=== PATIENT | male | born 1960 | race African-American/Black ===

== ENCOUNTER 2016-06-05 06:38 | Inpatient (IN) | payer OTHER ==
[~2016-06-05] VITALS: Ht 188 cm; Wt 116.2 kg
[2016-06-05] VITALS (13 sets, daily range): BP systolic 90–158; BP diastolic 64–106; PULSE 87–132; RESP 9–32; TEMP 98.1–98.7; O2SAT 89–99
[~2016-06-05 06:38] MED LIST: CYCL5TAB PO; DICL-86 PO; IBUP-238 PO
[2016-06-05] MEDS ORDERED: AMIODARONE HCL 150 MG/3 ML VIAL ONE (06:40)
[2016-06-05] MEDS ORDERED: TURM500C PO (06:45)
[2016-06-05] MEDS ORDERED: VERA120T3 PO (06:45)
[2016-06-05] MEDS ORDERED: VITA100064 PO (06:45)
--- NOTE | 2016-06-05 07:00 | PD ---
HPI . Shortness of breath Chief Complaint: Chest Pain Time Seen by Provider: 06:56 Travel History International Travel<30 days: No Contact w/Intl Traveler<30days: No Traveled to known affect area: No History of Present Illness HPI Patient is brought in via [facility] with the chief complaint of the acute onset of shortness of breath and chest pain minutes prior to arrival. He states that it awakened him from sleep. He states that the shortness of breath is the worst of the symptoms. He describes the chest discomfort as a tightness. He also has some diaphoresis. He denies any previous similar history. [facility] Past Medical History Diminished Hearing: No Hypertension: Yes Immune Disorder: Yes (HIV) Past Surgical History Other Surgery: Yes Social History Alcohol Use: Yes (X2 PER WEEK/2 DRINKS/LAST INTAKE YESTERDAY) Tobacco Use: Yes (1/2 PPD STARTED AGE 38) Substance Use: No Allergies-Medications (Allergen,Severity, Reaction): Coded Allergies: No Known Allergies (Verified , 06/05/16) Reported Meds & Prescriptions Reported Meds & Active Scripts Active Reported Turmeric (Turmeric (Curcuma Longa)) 500 Mg Cap Unknown Dose PO DAILY Vitamin D (Cholecalciferol) 1,000 Unit Tab 1,000 Units PO DAILY Verapamil (Verapamil HCl) 120 Mg Tab 180 Mg PO DAILY Review of Systems Except as stated in HPI: all other systems reviewed are Neg General / Constitutional: Positive: Other (diaphoresis) Cardiovascular: Positive: Chest Pain or Discomfort Respiratory: Positive: Shortness of Breath Physical Exam Narrative GENERAL: Patient is in obvious respiratory distress. He is able to speak 2 or 3 syllable between breaths. SKIN: He is clammy. HEAD: Atraumatic. Normocephalic. EYES: Pupils equal and round. ENT: No nasal bleeding or discharge. Mucous membranes pink and moist. NECK: Trachea midline. Neck is supple. CARDIOVASCULAR: Regular rate and rhythm. He is tachycardic at about 130 to 140. RESPIRATORY: No accessory muscle use. His lungs sound clear with good air movement throughout. Sats on oxygen are 90%. GASTROINTESTINAL: Abdomen soft, non-tender, nondistended. MUSCULOSKELETAL: No obvious deformities. Trace pretibial edema. NEUROLOGICAL: Awake and alert. No obvious cranial nerve deficits. Motor grossly within normal limits. Normal speech. PSYCHIATRIC: Appropriate mood and affect; insight and judgment normal. Data Data Last Documented VS Vital Signs Date Time Temp Pulse Resp B/P Pulse Ox O2 Delivery O2 Flow Rate FiO2 06/05/16 06:46 98.7 132 29 121/78 89 06/05/16 06:40 Nasal Cannula 4 Orders Amiodarone Inj (Cordarone Inj) (06/05/16 06:40) Electrocardiogram (06/05/16 06:42) Basic Metabolic Panel (Bmp) (06/05/16 06:42) Ckmb (Isoenzyme) Profile (06/05/16 06:42) Complete Blood Count With Diff (06/05/16 06:42) D-Dimer (06/05/16 06:42) Magnesium (Mg) (06/05/16 06:42) Prothrombin Time / Inr (Pt) (06/05/16 06:42) Act Partial Throm Time (Ptt) (06/05/16 06:42) Troponin I (06/05/16 06:42) Chest, Single Ap (06/05/16 06:42) Ecg Monitoring (06/05/16 06:42) Bilateral Bp Monitoring (06/05/16 06:42) Iv Access Insert/Monitor (06/05/16 06:42) Oximetry (06/05/16 06:42) Oxygen Administration (06/05/16 06:42) I-Stat Profile (06/05/16 06:42) Exceptions Acute Myocardial Infarction ASA Not Given on Arrival: Already Given by EMS MDM Medical Decision Making Medical Screen Exam Complete: Yes Emergency Medical Condition: Yes Interpretation(s) EKG shows atrial flutter with a rate of about 1:30. He has some diffuse lateral and inferior ST segment depression. He has no old EKGs here for comparison. Differential Diagnosis Differential diagnosis of dyspnea includes but is not limited to congestive heart failure, pneumonia, wheezing, pneumothorax, pulmonary embolism Narrative Course Patient presents via [facility] for shortness of breath and chest pain. He was found to be hypotensive by [facility] therefore he was not given any nitroglycerin. He was given baby aspirin. He was also treated with oxygen and IV fluids. Patient reports that he is much better on arrival here. However, he still appears markedly short of breath. His blood pressure was transiently improved but has dropped back down to about 90 systolic. He was given amiodarone, 150 mg IV in an attempt to gain rate control. However , he continues to have a rapid ventricular response. This patient presented shortly prior to change of shift. His care turned over to the oncoming provider. Bedside handout was done. Critical Care Narrative Aggregate critical care time was 30 minutes. Time to perform other separately billable procedures was not included in the critical care time. My time did not include minutes spent treating any other patients simultaneously or on activities that did not directly contribute to the patient's treatment. The services I provided to this patient were to treat and/or prevent clinically significant deterioration that could result in: Fatal dysrhythmia, cardiovascular collapse, respiratory arrest, cardiac disability. I provided critical care services requiring my management, as noted below: Chart data review, documentation time, medication orders and management, vital sign assessments/reviewing monitor data, ordering and reviewing lab tests, ordering and interpreting/reviewing x-rays and diagnostic studies, care of the patient and discussion of the patient with the admitting physicians. Diagnosis Primary Impression: Dyspnea Qualified Code: R06.00 - Dyspnea, unspecified type Additional Impression: Chest pain Qualified Code: R07.9 - Chest pain, unspecified type Nadia Oneill MD Jun 05, 2016 07:00
[2016-06-05 07:01] LABS: I-STAT POTASSIUM 3.3 MMOL/L (3.5-4.9); I-STAT SODIUM 142 MMOL/L (138-146)
[2016-06-05] MEDS ORDERED: SODIUM CHLOR 0.9% 1000 ML INJ 1,000 ML IV ONE (07:15)
[2016-06-05 07:16] LABS: AUTOMATED NEUTROPHIL # 2.7 TH/MM3 (1.8-7.7); BASOPHIL % 0.5 % (0.0-2.0); EOSINOPHIL # 0.2 TH/MM3 (0-0.4); EOSINOPHIL % 2.1 % (0.0-4.0); HEMO FLAGS DIFF FINAL; LYMPHOCYTE # 4.2 TH/MM3 (1.0-4.8); MEAN CELL VOLUME 103.7 FL (80.0-100.0); MEAN CORPUSCULAR HEMOGLOBIN 35.5 PG (27.0-34.0); MEAN CORPUSCULAR HGB CONC 34.3 % (32.0-36.0); MONO % 8.3 % (0.0-8.0); NEUT % 35.1 % (16.0-70.0); PLATELET COUNT 155 TH/MM3 (150-450); RED BLOOD COUNT 4.63 MIL/MM3 (4.50-5.90); WHITE BLOOD COUNT 7.8 TH/MM3 (4.0-11.0)
[2016-06-05 07:18] LABS: CREATINE KINASE 168 U/L (39-308)
[2016-06-05 07:20] LABS: ANION GAP 11 MEQ/L (5-15); BICARBONATE 23.3 MEQ/L (21.0-32.0); BLOOD UREA NITROGEN 19 MG/DL (7-18); CHLORIDE 109 MEQ/L (98-107); GLOMERULAR FILTRATION RATE 46 ML/MIN (>89); MAGNESIUM 1.9 MG/DL (1.5-2.5); POTASSIUM 3.3 MEQ/L (3.5-5.1); SODIUM (NA) 143 MEQ/L (136-145)
[2016-06-05 07:39] LABS: APTT (PATIENT) 22.8 SEC (24.3-30.1); INTERNATIONAL NORMALIZED RATIO 1.1 RATIO; PROTHROMBIN TIME - PATIENT 11.7 SEC (9.8-11.6)
--- NOTE | 2016-06-05 07:44 | RADRPT ---
EXAM DATE/TIME: 06/05/2016 07:23 [facility] COMPARISON: No previous studies available for comparison. INDICATIONS : Chest pain. MEDICAL HISTORY : None. SURGICAL HISTORY : None. ENCOUNTER: Initial ACUITY: 1 day PAIN SCORE: 5/10 LOCATION: Left upper chest FINDINGS: A single view of the chest demonstrates the lungs to be symmetrically aerated without evidence of mas s, infiltrate or effusion. The cardiomediastinal contours are unremarkable. Osseous structures are intact. CONCLUSION: No acute disease. Aniket Eric MD on June 05, 2016 at 7:42 Board Certified Radiologist. This report was verified electronically.
--- NOTE | 2016-06-05 07:56 | PD ---
Physical Exam Narrative Received sign out from previous team. Please see previous provider's note for full history and physical. 56yo M with PMH of HIV on HAART CD4 900 presents to the ED with c/o chest pain, sob, diaphoresis since waking up this morning. Chest pain is left sided, nonradiating. Pt was found to be in aflutter in the 130s and given amiodarone 150mg IV by previous team. To me, there appears to be buried p waves in the EKG and looks like sinus tach. Pt given liter of NS IVF and HR is 110s at this time. Pt is hypoxic at 93% on 6L NC. Labs reviewed, no leukocytosis, hypokalemia at 3.3, replaced orally with 40mEq KCl. Troponin is 0.04. D-dimer is elevated at 6.34. CXR showed no acute disease. Pt feels better with oxygen but requires 6L NC to be in low 90s saturation so CT pulmonary ordered and showed extensive bilateral pulmonary embolism. Pt's blood pressure has improved and hemodynamically stable at this time. Pt given lovenox. Discussed with Dr. Lin and accepted to medicine. Also discussed case with medicare sales representative Dr. Henao. Data Data Last Documented VS Vital Signs Date Time Temp Pulse Resp B/P Pulse Ox O2 Delivery O2 Flow Rate FiO2 06/05/16 08:15 114 18 128/93 95 Nasal Cannula 3 06/05/16 06:46 98.7 Orders Amiodarone Inj (Cordarone Inj) (06/05/16 06:40) Electrocardiogram (06/05/16 06:42) Basic Metabolic Panel (Bmp) (06/05/16 06:42) Ckmb (Isoenzyme) Profile (06/05/16 06:42) Complete Blood Count With Diff (06/05/16 06:42) D-Dimer (06/05/16 06:42) Magnesium (Mg) (06/05/16 06:42) Prothrombin Time / Inr (Pt) (06/05/16 06:42) Act Partial Throm Time (Ptt) (06/05/16 06:42) Troponin I (06/05/16 06:42) Chest, Single Ap (06/05/16 06:42) Ecg Monitoring (06/05/16 06:42) Bilateral Bp Monitoring (06/05/16 06:42) Iv Access Insert/Monitor (06/05/16 06:42) Oximetry (06/05/16 06:42) Oxygen Administration (06/05/16 06:42) I-Stat Profile (06/05/16 06:42) B-Type Natriuretic Peptide (06/05/16 07:09) Sodium Chlor 0.9% 1000 Ml Inj (Ns 1000 M (06/05/16 07:15) CKMB (06/05/16 06:42) CKMB% (06/05/16 06:42) Ct Pulmonary Angiogram (06/05/16 ) Potassium Chloride (Kcl) (06/05/16 08:00) Arterial Blood Gas (Abg) (06/05/16 ) Iodixanol 320 Inj (Visipaque 320 Inj) (06/05/16 09:02) Enoxaparin Inj (Lovenox Inj) (06/05/16 09:45) Admit Order (Ed Use Only) (06/05/16 09:46) Labs Laboratory Tests Test 06/05/16 06/05/16 06:42 09:09 White Blood Count 7.8 TH/MM3 Red Blood Count 4.63 MIL/MM3 Hemoglobin 16.4 GM/DL Bedside Hemoglobin 16.3 G/DL Hematocrit 48.0 % Bedside Hematocrit 48.0 % Mean Corpuscular Volume 103.7 FL Mean Corpuscular Hemoglobin 35.5 PG Mean Corpuscular Hemoglobin 34.3 % Concent Red Cell Distribution Width 15.0 % Platelet Count 155 TH/MM3 Mean Platelet Volume 8.5 FL Neutrophils (%) (Auto) 35.1 % Lymphocytes (%) (Auto) 54.0 % Monocytes (%) (Auto) 8.3 % Eosinophils (%) (Auto) 2.1 % Basophils (%) (Auto) 0.5 % Neutrophils # (Auto) 2.7 TH/MM3 Lymphocytes # (Auto) 4.2 TH/MM3 Monocytes # (Auto) 0.6 TH/MM3 Eosinophils # (Auto) 0.2 TH/MM3 Basophils # (Auto) 0.0 TH/MM3 CBC Comment DIFF FINAL Differential Comment Prothrombin Time 11.7 SEC Prothromb Time International 1.1 RATIO Ratio Activated Partial 22.8 SEC Thromboplast Time D-Dimer Quantitative (PE/DVT) 6.34 MG/L FEU Bedside Sodium 142 MMOL/L Sodium Level 143 MEQ/L Bedside Potassium 3.3 MMOL/L Potassium Level 3.3 MEQ/L Bedside Chloride 106 MMOL/L Chloride Level 109 MEQ/L Carbon Dioxide Level 23.3 MEQ/L Anion Gap 11 MEQ/L Bedside Blood Urea Nitrogen 21 MG/DL Blood Urea Nitrogen 19 MG/DL Creatinine 1.84 MG/DL Estimat Glomerular Filtration 46 ML/MIN Rate Bedside Glucose 180 MG/DL Random Glucose 182 MG/DL Calcium Level 8.5 MG/DL Magnesium Level 1.9 MG/DL Total Creatine Kinase 168 U/L Creatine Kinase MB 1.0 NG/ML Troponin I 0.04 NG/ML B-Type Natriuretic Peptide 72 PG/ML Blood Gas Puncture Site RT RADIAL Blood Gas Patient Temperature 98.6 Blood Gas HCO3 19 mmol/L Blood Gas Base Excess -5.1 mmol/L Blood Gas Oxygen Saturation 93 % Arterial Blood pH 7.39 Arterial Blood Partial 32 mmHg Pressure CO2 Arterial Blood Partial 113 mmHG Pressure O2 Arterial Blood Oxygen Content 20.8 Vol % Arterial Blood 3.5 % Carboxyhemoglobin Arterial Blood Methemoglobin 2.1 % Blood Gas Hemoglobin 15.9 G/DL Oxygen Delivery Device NASAL CANNULA Blood Gas Liter Flow 6 L/M MDM Supervised Visit with JOHNATHAN: No Critical Care Narrative Aggregate critical care time was 40 minutes. Time to perform other separately billable procedures was not included in the critical care time. My time did not include minutes spent treating any other patients simultaneously or on activities that did not directly contribute to the patient's treatment. The services I provided to this patient were to treat and/or prevent clinically significant deterioration that could result in: cardiovascular collapse or . I provided critical care services requiring my management, as noted below: Chart data review, documentation time, medication orders and management, vital sign assessments/reviewing monitor data, ordering and reviewing lab tests, ordering and interpreting/reviewing x-rays and diagnostic studies, care of the patient and discussion of the patient with the admitting physicians. Diagnosis Primary Impression: Bilateral pulmonary embolism Admitting Information Admitting Physician Requests: Mae Hanson DO Jun 05, 2016 07:56
[2016-06-05] MEDS ORDERED: POTASSIUM CHLORIDE 20 MEQ CONTROLLED RELEASE TAB PO ONE (08:00)
[2016-06-05] MEDS ORDERED: IODIXANOL 320 MG/ML 10 ML VIAL (for RAD SPEC) IV ONE (09:02)
[2016-06-05 09:14] LABS: BLOOD GAS BASE EXCESS -5.1 mmol/L (-2-2); BLOOD GAS CARBOXYHEMOGLOBIN 3.5 % (0-4); BLOOD GAS HCO3 19 mmol/L (22-26); BLOOD GAS METHEMOGLOBIN 2.1 % (0-2); BLOOD GAS O2 HGB SATURATION 93 % (90-100); BLOOD GAS OXYGEN CONTENT 20.8 Vol % (12.0-20.0); BLOOD GAS PCO2 32 mmHg (38-42); BLOOD GAS PO2 113 mmHG (61-120); BLOOD GAS TOTAL HGB 15.9 G/DL (12.0-16.0); CRITICAL VALUE NO; DRAW SITE RT RADIAL; LITER FLOW 6 L/M; NUMBER OF ARTERIAL PUNCTURES 2; OXYGEN DEVICE NASAL CANNULA; STAT YES; TEMP CORR TO 98.6; ULNAR PULSE PRESENT
--- NOTE | 2016-06-05 09:21 | RADRPT ---
EXAM DATE/TIME: 06/05/2016 08:38 [facility] COMPARISON: CHEST SINGLE AP, June 05, 2016, 7:23. INDICATIONS : Sudden onset of chest pain and shortness of breath. IV CONTRAST: 48 cc Visipaque (iodixanol) IV RADIATION DOSE: 23.36 CTDIvol (mGy) MEDICAL HISTORY : Hypertension. HIV. SURGICAL HISTORY : None. ENCOUNTER: Initial ACUITY: 1 day PAIN SCALE: 6/10 LOCATION: Left chest TECHNIQUE: Volumetric scanning of the chest was performed using a pulmonary embolism protocol MIP images were re constructed. Using automated exposure control and adjustment of the mA and/or kV according to patien t size, radiation dose was kept as low as reasonably achievable to obtain optimal diagnostic quality images. FINDINGS: PULMONARY ARTERIES: Extensive pulmonary embolus is present in the right main pulmonary artery extending into the upper an d lower lobe pulmonary arteries. There is milder but fairly extensive pulmonary embolus in the left d istal main pulmonary artery extending into the upper and lower lobe arteries. LUNGS: Clear. PLEURAE: There is no pleural thickening or pleural effusion. MEDIASTINUM: There is good visualization of the great vessels of the middle mediastinum. No evidence of mediastin al or hilar adenopathy/mass. MUSCULOSKELETAL: Within normal limits for patient age. MISCELLANEOUS: The visualized upper abdominal organs demonstrate no acute abnormality. CONCLUSION: Extensive bilateral pulmonary embolism. Abdulaziz Woodson MD on June 05, 2016 at 9:11 Board Certified Radiologist. This report was verified electronically.
[2016-06-05] MEDS ORDERED: ENOXAPARIN SODIUM 120 MG/0.8 ML SYRINGE SQ ONE (09:45)
[2016-06-05] MEDS ORDERED: SODIUM CHLORIDE 0.9% FLUSH 5 ML FLUSH FLUSH PRN (10:00)
[2016-06-05] MEDS ORDERED: PROCHLORPERAZINE 25 MG SUPP PR PRN (10:00)
[2016-06-05] MEDS ORDERED: ONDANSETRON HCL 4 MG/2 ML VIAL IVP PRN (10:00)
[2016-06-05] MEDS ORDERED: MAGNESIUM HYDROXIDE SUSP 30 ML CUP PO PRN (10:00)
[2016-06-05] MEDS ORDERED: ACETAMINOPHEN 325 MG TAB PO PRN (10:00)
[2016-06-05] MEDS ORDERED: NALOXONE HCL 0.4 MG/ML AMP IV PRN (10:00)
[2016-06-05] MEDS ORDERED: BISACODYL 10 MG SUPP PR PRN (10:00)
[2016-06-05] MEDS: SODIUM CHLOR 0.9% 1000 ML INJ 1,000 ML IV SCH ×3 (10:44→21:34)
--- NOTE | 2016-06-05 10:49 | HHI.HP ---
[facility] Admission Diagnosis Bilateral PE Diagnoses: Chief Complaint: Shortness of breath Travel History International Travel<30 Days: No Contact w/Intl Traveler <30 Da: No Traveled to Known Affected Are: No History of Present Illness Mr. Hayes is a pleasant 56-year-old [employer] with a history of hypertension, HIV who presents to the emergency department today due to worsening shortness of breath that started about 2 months ago. Last night his shortness of breath was severe which prompted him to come to the emergency department. He also reported some chest tightness as as well as diaphoresis. When patient initially arrived to the emergency department, his heart rate was in the 130s, blood pressure systolic 80s to 90s, tachypneic with respiratory rate 29, hypoxic with oxygen saturation less than 90. He was given 1 L of fluid and supplemental oxygen and subsequently improved. Currently, patient is slightly tachycardic, oxygenating well on supplemental O2. BP is within reasonable range with systolic in 120s range. Patient denies any changes in bladder habits but reports some constipation. Denies fever, chills but reports feeling hot. Patient does not want us to share his HIV status with anyone within his family. Review of Systems ROS Limitations: Other (Negative except as noted in the HPI) Past Family Social History Past Medical History HTN, HIV, gynecomastia Past Surgical History Bilateral mastectomy due to gynecomastia Bunion removed from bilateral feet Reported Medications Turmeric (Turmeric (Curcuma Longa)) 500 Mg Cap Unknown Dose PO DAILY Vitamin D (Cholecalciferol) 1,000 Unit Tab 1,000 Units PO DAILY Verapamil (Verapamil HCl) 120 Mg Tab 180 Mg PO DAILY Allergies: Coded Allergies: No Known Allergies (Verified , 06/05/16) Family History Both parents had hypertension. Social History Patient smokes about one pack a day. Denies drinking alcohol or using illicit drugs. Physical Exam Vital Signs Vital Signs Date Time Temp Pulse Resp B/P Pulse Ox O2 Delivery O2 Flow Rate FiO2 06/05/16 08:15 114 18 128/93 95 Nasal Cannula 3 06/05/16 07:00 115 18 90/64 98 Room Air 06/05/16 06:46 98.7 132 29 121/78 89 06/05/16 06:40 91 Nasal Cannula 4 06/05/16 06:40 29 91 Nasal Cannula 4 06/05/16 06:40 132 29 93 Nasal Cannula 4 Physical Exam GENERAL: This is a well-nourished, well-developed patient, in no apparent distress. SKIN: No rashes, ecchymoses or lesions. Warm and dry. HEAD: Atraumatic. Normocephalic. No temporal or scalp tenderness. EYES: Pupils equal round and reactive. No injection or drainage. ENT: Nose without bleeding, purulent drainage or septal hematoma. Airway patent. NECK: Trachea midline. No lymphadenopathy. Supple, nontender, no meningeal signs. CARDIOVASCULAR: Regular rhythm, tachycardic without murmurs, gallops, or rubs. No JVD. RESPIRATORY: Clear to auscultation. Breath sounds equal bilaterally. No wheezes , rales, or rhonchi. GASTROINTESTINAL: Abdomen soft, non-tender, nondistended. No guarding. MUSCULOSKELETAL: Extremities without clubbing, cyanosis, or edema. NEUROLOGICAL: Awake and alert. Cranial nerves II through XII intact. No focal neurological deficits. Normal speech. Laboratory Laboratory Tests Test 06/05/16 06/05/16 06:42 09:09 White Blood Count 7.8 Red Blood Count 4.63 Hemoglobin 16.4 Bedside Hemoglobin 16.3 Hematocrit 48.0 Bedside Hematocrit 48.0 Mean Corpuscular Volume 103.7 Mean Corpuscular Hemoglobin 35.5 Mean Corpuscular Hemoglobin 34.3 Concent Red Cell Distribution Width 15.0 Platelet Count 155 Mean Platelet Volume 8.5 Neutrophils (%) (Auto) 35.1 Lymphocytes (%) (Auto) 54.0 Monocytes (%) (Auto) 8.3 Eosinophils (%) (Auto) 2.1 Basophils (%) (Auto) 0.5 Neutrophils # (Auto) 2.7 Lymphocytes # (Auto) 4.2 Monocytes # (Auto) 0.6 Eosinophils # (Auto) 0.2 Basophils # (Auto) 0.0 CBC Comment DIFF FINAL Differential Comment Prothrombin Time 11.7 Prothromb Time International 1.1 Ratio Activated Partial 22.8 Thromboplast Time D-Dimer Quantitative (PE/DVT) 6.34 Bedside Sodium 142 Sodium Level 143 Bedside Potassium 3.3 Potassium Level 3.3 Bedside Chloride 106 Chloride Level 109 Carbon Dioxide Level 23.3 Anion Gap 11 Bedside Blood Urea Nitrogen 21 Blood Urea Nitrogen 19 Creatinine 1.84 Estimat Glomerular Filtration 46 Rate Bedside Glucose 180 Random Glucose 182 Calcium Level 8.5 Magnesium Level 1.9 Total Creatine Kinase 168 Creatine Kinase MB 1.0 Troponin I 0.04 Blood Gas Puncture Site RT RADIAL Blood Gas Patient Temperature 98.6 Blood Gas HCO3 19 Blood Gas Base Excess -5.1 Blood Gas Oxygen Saturation 93 Arterial Blood pH 7.39 Arterial Blood Partial 32 Pressure CO2 Arterial Blood Partial 113 Pressure O2 Arterial Blood Oxygen Content 20.8 Arterial Blood 3.5 Carboxyhemoglobin Arterial Blood Methemoglobin 2.1 Blood Gas Hemoglobin 15.9 Oxygen Delivery Device NASAL CANNULA Blood Gas Liter Flow 6 Result Diagram: 06/05/1642 06/05/16641 Imaging Last Impressions Chest X-Ray 06/05/16641 Signed Impressions: Service Date/Time: May 07:23 - CONCLUSION: No acute disease. Aniket Eric MD CT Angiography 06/05/16 0000 Signed Impressions: Service Date/Time: May 08:38 - CONCLUSION: Extensive bilateral pulmonary embolism. Abdulaziz Woodson MD Assessment and Plan Problem List: (1) Bilateral pulmonary embolism ICD Code: I26.99 Status: Acute (2) Acute kidney injury ICD Code: N17.9 Status: Acute (3) Hypertension ICD Code: I10 Status: Acute (4) HIV (human immunodeficiency virus infection) ICD Code: Z21 Status: Acute Assessment and Plan Mr. Hayes is a pleasant 56-year-old [employer] with a history of HIV, hypertension who presented to the emergency department today due to worsening shortness of breath that started 2 months ago. ED work up indicated bilateral extensive PE. Patient was initially hypotensive and tachycardic and hypoxic. However after 1 L of fluid and supplemental oxygen patient responded well and currently hemodynamically stable. - Bilateral pulmonary embolism - I initially discussed with interventional radiology who recommended TPA for extensive clot burden - Placed a critical care consult and discussed with Dr. Henao who recommended heparin drip and stat echocardiogram. - Will initiate heparin drip with bolus. - We'll admit patient to an ICU bed. - Critical care will evaluate patient and consider tPA. - EKG reviewed by me and Dr. Henao - EKG shows [id number]. - Acute kidney injury - creatinine 1.84. We do not have a baseline creatinine for this patient. - We'll monitor. Continue IV fluid. - HIV - patient takes HAART medication on a regular basis. [facility]. Per patient, last CD4 count 900. - Will restart patient's home medication. - Hypertension - will hold verapamil for now. Patient was slightly hypotensive when he presented to the ED. Currently hemodynamically stable. - If needed, we'll initiate amlodipine for hypertension. Full code. Heparin drip. Total critical care time spent more than 35 minutes. Physician Certification 2 Midnight Certification Type: Admission for Inpatient Services Order for Inpatient Services The services are ordered in accordance with Medicare regulations or non- Medicare payer requirements, as applicable. In the case of services not specified as inpatient-only, they are appropriately provided as inpatient services in accordance with the 2-midnight benchmark. Estimated LOS (days): 2 days is the estimated time the patient will need to remain in the hospital, assuming treatment plan goals are met and no additional complications. Post-Hospital Plan: Home Tone Caceres DO Jun 05, 2016 10:49
[2016-06-05 11:27] LABS: MEAN CELL VOLUME 103.9 FL (80.0-100.0); MEAN CORPUSCULAR HEMOGLOBIN 35.4 PG (27.0-34.0); MEAN CORPUSCULAR HGB CONC 34.1 % (32.0-36.0); PLATELET COUNT 140 TH/MM3 (150-450); RED BLOOD COUNT 4.33 MIL/MM3 (4.50-5.90); REVIEW FLAG FINAL; WHITE BLOOD COUNT 9.2 TH/MM3 (4.0-11.0)
[2016-06-05 11:37] LABS: APTT (PATIENT) 23.7 SEC (24.3-30.1)
[2016-06-05] MEDS ORDERED: CENTTAB20 PO (11:58)
[2016-06-05] MEDS ORDERED: ALLO100T PO (11:58)
[2016-06-05] MEDS ORDERED: ABAC1TAB3 PO (11:58)
[2016-06-05] MEDS ORDERED: FLEE5TAB PO (11:58)
[2016-06-05] MEDS ORDERED: CLOT1CRE6 TOPICAL (11:58)
[2016-06-05] MEDS ORDERED: DICL1GEL7 TOPICAL (11:58)
[2016-06-05] MEDS ORDERED: VERA180T6 PO (11:58)
[2016-06-05] MEDS ORDERED: HEPARIN SODIUM - IV 10,000 UNITS/10 ML VIAL IV ONE (12:00)
--- NOTE | 2016-06-05 12:25 | PD.CONS ---
[facility] Service Critical Care Medicine Consult Requested By Dr. Sandoval Reason for Consult Extensive pulmonary embolism with possible need for thrombolysis Primary Care Physician [facility] History of Present Illness 56-year-old [employer] with a medical history significant for HIV, hypertension, gout who presented to the ER with worsening shortness of breath which has been going on for about 2 months however last night he had chest tightness as well as sudden worsening of shortness of breath and diaphoresis for which she was brought to the ER. He was noted to be in A. fib with RVR with heart rate in the 130s, systolic blood pressure 80s to 90s with respiratory rate in the upper 20s and borderline O2 sats requiring supplemental O2. He was given 1 L fluid bolus with which his hypotension resolved. He was also given 150 mg of amiodarone and has subsequently converted to sinus tachycardia. CT chest revealed extensive pulmonary embolism. Patient was admitted by hospitalist service and critical care consult was requested by Dr. Sandoval for extensive PE with possible need for thrombolysis. I evaluated the patient immediately on being notified of the consult. At the time of my evaluation was sitting up in the ER stretcher comfortably not in any acute distress maintaining his blood pressure and O2 sats on nasal cannula. He denied any chest pain or shortness of breath at the time of my evaluation and was conversing very comfortably. He denied any recent travel however tells me that he is mostly sedentary due to his gout. He denies any melena or rectal bleeding or any bleeding from any other site. He denies any recent surgeries within the last year. Review of Systems ROS Limitations: Other (Negative except as noted in the HPI) Past Family Social History Past Medical History HTN, HIV, gynecomastia Past Surgical History Bilateral mastectomy due to gynecomastia Bunion removed from bilateral feet Reported Medications Turmeric (Turmeric (Curcuma Longa)) 500 Mg Cap Unknown Dose PO DAILY ? Vitamin D (Cholecalciferol) 1,000 Unit Tab 1,000 Units PO DAILY Verapamil (Verapamil HCl) 120 Mg Tab 180 Mg PO DAILY HIV meds to be clarified Allergies: Coded Allergies: No Known Allergies (Verified , 06/05/16) Family History Both parents had hypertension. Social History Patient smokes about one pack a day. Denies drinking alcohol or using illicit drugs. Physical Exam Vital Signs Vital Signs Date Time Temp Pulse Resp B/P Pulse Ox O2 Delivery O2 Flow Rate FiO2 06/05/16 08:15 114 18 128/93 95 Nasal Cannula 3 06/05/16 07:00 115 18 90/64 98 Room Air 06/05/16 06:46 98.7 132 29 121/78 89 06/05/16 06:40 91 Nasal Cannula 4 06/05/16 06:40 29 91 Nasal Cannula 4 06/05/16 06:40 132 29 93 Nasal Cannula 4 Physical Exam HEENT/Neuro: No pallor or icterus, tongue moist, ZOHAIB, Awake alert oriented 3 , nonfocal grossly, moving all 4 extremities Neck: No JVD Chest/pulmonary: CTA bilaterally Cardiovascular: S1-S2 regular no gallop or murmur GI/abdomen: Soft, nontender, bowel sounds present Extremities: Warm bilaterally, no edema Laboratory Laboratory Tests Test 06/05/16 06/05/16 06/05/16 06:42 09:09 11:11 White Blood Count 7.8 9.2 Red Blood Count 4.63 4.33 Hemoglobin 16.4 15.3 Bedside Hemoglobin 16.3 Hematocrit 48.0 45.0 Bedside Hematocrit 48.0 Mean Corpuscular Volume 103.7 103.9 Mean Corpuscular Hemoglobin 35.5 35.4 Mean Corpuscular Hemoglobin 34.3 34.1 Concent Red Cell Distribution Width 15.0 15.0 Platelet Count 155 140 Mean Platelet Volume 8.5 7.8 Neutrophils (%) (Auto) 35.1 Lymphocytes (%) (Auto) 54.0 Monocytes (%) (Auto) 8.3 Eosinophils (%) (Auto) 2.1 Basophils (%) (Auto) 0.5 Neutrophils # (Auto) 2.7 Lymphocytes # (Auto) 4.2 Monocytes # (Auto) 0.6 Eosinophils # (Auto) 0.2 Basophils # (Auto) 0.0 CBC Comment DIFF FINAL Differential Comment Prothrombin Time 11.7 Prothromb Time International 1.1 Ratio Activated Partial 22.8 23.7 Thromboplast Time D-Dimer Quantitative (PE/DVT) 6.34 Bedside Sodium 142 Sodium Level 143 Bedside Potassium 3.3 Potassium Level 3.3 Bedside Chloride 106 Chloride Level 109 Carbon Dioxide Level 23.3 Anion Gap 11 Bedside Blood Urea Nitrogen 21 Blood Urea Nitrogen 19 Creatinine 1.84 Estimat Glomerular Filtration 46 Rate Bedside Glucose 180 Random Glucose 182 Calcium Level 8.5 Magnesium Level 1.9 Total Creatine Kinase 168 Creatine Kinase MB 1.0 Troponin I 0.04 B-Type Natriuretic Peptide 72 Blood Gas Puncture Site RT RADIAL Blood Gas Patient Temperature 98.6 Blood Gas HCO3 19 Blood Gas Base Excess -5.1 Blood Gas Oxygen Saturation 93 Arterial Blood pH 7.39 Arterial Blood Partial 32 Pressure CO2 Arterial Blood Partial 113 Pressure O2 Arterial Blood Oxygen Content 20.8 Arterial Blood 3.5 Carboxyhemoglobin Arterial Blood Methemoglobin 2.1 Blood Gas Hemoglobin 15.9 Oxygen Delivery Device NASAL CANNULA Blood Gas Liter Flow 6 Result Diagram: 06/05/16 1111 06/05/16 0642 Assessment and Plan Assessment and Plan 56-year-old male with: Extensive pulmonary embolism A. fib with RVR(currently sinus tachycardia) Hypotension (resolved) History of hypertension History of HIV History of gout Plan: Neuro: Follow neuro status Cardiovascular: IV hydration. Stat 2-D echo ordered to evaluate for RV dysfunction. Being started on heparin for full anticoagulation. Cardiology consult requested. If patient has evidence of hemodynamic instability/ significant RV dysfunction or decompensation will decide regarding thrombolysis. Pulmonary: Supplemental O2 as needed. Anticoagulation with heparin. Patient may require, lysis following review of 2-D echo or if he develops hemodynamic instability. GI/liver: By mouth diet as tolerated Renal/: IV hydration, monitor and replete electrolytes, follow BUN/creatinine , follow urine output. Heme: Hypercoagulable workup ordered. Patient has essentially had limited mobility for the last few years secondary to his gout though he does walk around. Hematology consult requested for PE. ID: Continue antiretroviral therapy for his HIV. Medication list to be clarified from [place] pharmacy. Endocrine: SSI for glycemic control if needed. Prophylaxis: Full anticoagulation with heparin. No indication for GI prophylaxis at this time Condition critical. High risk for decompensation secondary to extensive PE including risk for cardiac arrest/PEA. Patient was informed regarding current clinical status and plan of care and he voiced understanding and was agreeable. I have explained possible need for thrombolysis and risks including increased bleeding risk. He voiced understanding. Discussed with Dr. Sandoval. Time spent on critical care excluding procedures 60 minutes Amarjit Henao MD Jun 05, 2016 12:25
--- NOTE | 2016-06-05 12:31 | MB ---
cc: URI ARCE M.D. DATE OF CONSULTATION 06/05/2016 REASON FOR THE CONSULTATION Bilateral pulmonary emboli, rule out right ventricular dysfunction. HISTORY OF THE PRESENT ILLNESS The patient is a 56-year-old -[place] male with a history of HIV positivity, diabetes, who presented to the emergency room with acute increase in shortness of breath which has been fairly chronic for at least the last year. He was found to have bilateral pulmonary emboli on CT angiography. An echocardiogram is pending. For the past few months he has also noted a fairly constant, waxing and waning, substernal chest tightness. This morning and yesterday he has felt intermittently lightheaded without syncope or near-syncope. So far he has not developed any problems with severe hypotension. He denies paroxysmal nocturnal dyspnea or orthopnea. A few months ago he noted fairly severe, diffuse left lower extremity swelling which has for the most part resolved. The patient also reports occasional fleeting, pounding palpitations. PAST MEDICAL HISTORY 1. HIV positivity. 2. Hypertension. PAST SURGICAL HISTORY 1. Bilateral mastectomies due to gynecomastia. 2. Bunionectomy. CARDIAC MEDICATIONS AT HOME Verapamil. ALLERGIES No known drug allergies. FAMILY HISTORY There is no significant family history of early myocardial infarction. His mother did pass away shortly after undergoing open heart surgery at age 72. SOCIAL HISTORY The patient smokes a little less than a pack of cigarettes per day. He denies alcohol abuse. REVIEW OF SYSTEMS As in the History Of Present Illness, otherwise negative or noncontributory. He also denies headache, visual changes, abdominal pain, melena, dyspepsia, right red blood per rectum. PHYSICAL EXAMINATION VITAL SIGNS: Blood pressure 128/93 with a pulse of 114, respirations 18. GENERAL: He is a well-developed, well-nourished -Bah[place]ian male in no acute distress. HEENT EXAMINATION/NECK: Jugular venous pressure is normal. Carotid pulses are 2+ bilaterally and without bruits. EXAMINATION OF THE CHEST: Reveals clear lung romero. CARDIAC EXAMINATION: He has a tachycardiac regular rhythm without S3, S4 or murmur. His pulmonic closure sound is normal. There is no there is no right ventricular heave. ABDOMINAL EXAMINATION: He has a soft, nontender abdomen. Bowel sounds are present. There is no definite hepatosplenomegaly. EXAMINATION OF EXTREMITIES: Reveals no clubbing, cyanosis or edema. EKG Shows sinus tachycardia, incomplete right bundle-branch block, ST and T-wave abnormality, consider anterolateral ischemia. CHEST X-RAY Shows no acute disease. LABORATORY DATA WBC 9.2, hemoglobin 15.3, platelets 140. Potassium 3.3, BUN 19, creatinine 1.84. CK 168. Troponin 0.04. INR 1.1. IMPRESSION Overall stable cardiac status in this 56-year-old -[place] male with a history of HIV positivity, hypertension, now admitted with extensive bilateral pulmonary emboli. I have been asked to see the patient for a possible right ventricular dysfunction. At this time his echocardiogram is pending. He shows no signs or symptoms so far of right ventricular failure. His chronic chest discomfort is extremely atypical for myocardial ischemia and may be related to his bilateral pulmonary emboli. He is normotensive at this time. RECOMMENDATIONS 1. Await his 2-D echo. 2. Even if right ventricular enlargement and/or dysfunction is noted, would recommend no specific change in this therapy unless there is severe right ventricular dysfunction in which case thrombolytic therapy could be considered for his pulmonary emboli. MD LESIA Vargas/[place] /11:47 AM /12:23 PM MTDD
[2016-06-05] MEDS: HEPARIN-D5W INJ 250 ML IV SCH (12:36)
--- NOTE | 2016-06-05 12:55 | EC ---
Study Study Date:06/05/2016 STUDY CONCLUSIONS SUMMARY - Procedure narrative: Transthoracic echocardiography. Image quality was fair. Scanning was performed from the parasternal, apical, and subcostal acoustic windows. - Left ventricle: The cavity size was normal. Wall thickness was normal. Systolic function was normal. The estimated ejection fraction was in the range of 55% to 60%. Wall motion was normal; there were no regional wall motion abnormalities. - Right ventricle: The cavity size was moderately enlarged with moderately to severely reduced systolic function. - Tricuspid valve: Mild regurgitation with no definite evidence for pulmonary hypertension. If LV function is below 40, please consider prescribing an ACEI or ARB or document rationale for non-use. PROCEDURE DATA STUDY STATUS: Elective. Procedure: Transthoracic echocardiography. Image quality was fair. Scanning was performed from the parasternal, apical, and subcostal acoustic windows. Study completion: The patient tolerated the procedure well. Transthoracic echocardiography. M-mode, complete 2D, complete spectral Doppler, and color Doppler. Height: Height: 74in. Weight: Weight: 241.5lb. Body mass index: BMI: 31.1kg/m^2. Body surface area: BSA: 2.36m^2. Patient status: Inpatient. CARDIAC ANATOMY LEFT VENTRICLE: The cavity size was normal. Wall thickness was normal. Systolic function was normal. The estimated ejection fraction was in the range of 55% to 60%. Wall motion was normal; there were no regional wall motion abnormalities. AORTIC VALVE: Trileaflet; normal thickness leaflets. Doppler: Transvalvular velocity was within the normal range. There was no stenosis. No regurgitation. Indexed valve area: 0.96cm^2/m^2 (Vmax). AORTA: Aortic root: The aortic root was normal in size. MITRAL VALVE: Structurally normal valve. Doppler: Transvalvular velocity was within the normal range. There was no evidence for stenosis. No regurgitation. LEFT ATRIUM: The atrium was normal in size. RIGHT VENTRICLE: The cavity size was moderately enlarged with moderately to severely reduced systolic function. PULMONIC VALVE: Doppler: Transvalvular velocity was within the normal range. There was no evidence for stenosis. No regurgitation. TRICUSPID VALVE: Structurally normal valve. Doppler: Transvalvular velocity was within the normal range. Mild regurgitation with no definite evidence for pulmonary hypertension. PULMONARY ARTERY: The main pulmonary artery was normal-sized. Systolic pressure was within the normal range. RIGHT ATRIUM: The atrium was normal in size. PERICARDIUM: There was no pericardial effusion. SYSTEMIC VEINS: Inferior vena cava: The vessel was normal in size. Patient weight: 241.5lb _Ejection fraction:_ 65-75% _Fractional shortening:_ 32% up to 5Kg 5-11.5Kg 11.6-22.9Kg 23-45Kg 45-57Kg Aortic Root 7-13 <17 13-22 17-27 17-27 LA diam 6-13 <23 24-38 33-47 37-40 RVID 10-17 7-15 7-15 7-18 8-17 LVIDd 12-22 <32 24-38 33-47 37-40 LVPW 2-4 3-6 5-7 6-8 7-8 IVS 2-4 3-6 5-7 6-8 7-8 BASIC MEASUREMENTS ADULT NORMAL Left ventricle LV internal dimension, ED, chordal 44.8 mm 43-52 level, PLAX LV internal dimension, ES, chordal 35.3 mm 23-38 level, PLAX Fractional shortening, chordal level, *21 % >29 PLAX LV posterior wall thickness, ED 8.4 mm IVS/LVPW ratio, ED 1.07 <1.3 Ventricular septum Septal thickness, ED 8.99 mm Aortic valve Leaflet separation 23 mm 15-26 Right ventricle RV internal dimension, ED, PLAX 28.9 mm 19-38 BASIC MEASUREMENTS ADULT NORMAL Aortic valve Leaflet separation 23 mm 15-26 Aorta Root diameter, ED 32 mm 20-37 Left atrium Anterior-posterior dimension, ES 35 mm 19-40 Anterior-posterior dimension index, ES 1.48 cm/m^2 <2.2 LA/aortic root ratio 1.09 DOPPLER MEASUREMENTS ADULT NORMAL Main pulmonary artery Pressure, S 29 mm Hg =30 Aortic valve Peak velocity, S 90.9 cm/s Valve area index, Vmax 0.96 cm^2/m^2 Tricuspid valve Regurgitant peak velocity 219 cm/s Peak RV-RA gradient, S 19 mm Hg Maximal regurgitant velocity 219 cm/s Systemic veins Estimated CVP 10 mm Hg Right ventricle RV pressure, S 29 mm Hg <30 LEGEND: Mean values are shown as u=mean value. Asterisk (*) chandra values outside specified normal range. Prepared and signed by Malcom Arndt [id number]
[2016-06-05] MEDS ORDERED: CLOTRIMAZOLE 1% CREAM 15 GM TOPICAL PRN (16:45)
[2016-06-05] MEDS ORDERED: HEPARIN SODIUM - IV 10,000 UNITS/10 ML VIAL IV PRN ×2 (16:45)
[2016-06-05 18:34] LABS: APTT (PATIENT) 87.2 SEC (24.3-30.1)
[2016-06-05] MEDS: SODIUM CHLORIDE 0.9% FLUSH 5 ML FLUSH FLUSH SCH (19:04)
--- NOTE | 2016-06-05 20:00 | MB ---
cc: [facility], BRITNEY VALDIVIA MD DATE OF CONSULTATION: 06/05/2016 DATE OF : 1960 REASON FOR CONSULTATION Bilateral pulmonary emboli (submassive). PROVOKING FACTORS The patient has no identifiable provoking factors. CHIEF COMPLAINT Mr. Hayes reports having acute onset difficulty breathing associated with substernal chest pressure which he noticed when he woke up early this morning. He called 911 immediately. HISTORY OF PRESENT ILLNESS Mr. Hayes is a 56-year-old male who was brought into the [place] earlier this morning via EMS after he woke up feeling short of breath and noticing chest pressure. The patient reports he barely had enough breath to speak to the band sawmill operator over the telephone. The patient felt he was having a heart attack. He was brought into the emergency department and underwent cardiac evaluation as well as a CT angiogram of the chest. The CT angiogram of the chest revealed findings consistent with bilateral pulmonary emboli involving the main right and left pulmonary arterial trunks. He additionally underwent an echocardiogram which revealed significant right heart strain with the right ventricular being moderately enlarged with [id number] reduction in systolic function of the right ventricle. The patient has been initiated on anticoagulation, he received a single dose of Lovenox in the emergency department and then was initiated on a heparin drip. He reports his breathing over the past five hours has improved significantly. He presently is without evidence of hypotension or hypoxia. At presentation he was noted to have transient hypotension with the lowest blood pressure charted measuring 90/64. He also had tachycardia initially but has since then had resolution of the tachycardia. Of note the patient does have a history of hypertension, gout and HIV, his HIV status is not known to his family and he wishes nobody to know about this. The patient tells me he is presently on a triple-drug combination of Abacavir, Lamivudine and Zidovudine and his most recent HIV titers were approximately 900. He has been following up regularly with an HIV physician regarding this. Additional details provided by the patient include on and off pain and swelling of the left leg which he attributed to gout (was not formally evaluated by a physician). He also reports having had difficulty breathing on and off which he attributed to his tobaccoism which had been ongoing since January. PAST MEDICAL HISTORY 1. Hypertension. 2. Gout. 3. Tobaccoism. 4. HIV. PAST SURGICAL HISTORY 1. Breast reduction surgery in 1983. 2. Bunionectomy. FAMILY HISTORY No family history of blood clots, malignancies or oncologic diagnoses that he can recall. SOCIAL HISTORY The patient is single, he lives at home alone. He has is a retired [employer] . He reports smoking a pack a day since the age of 38. He also smokes recreational marijuana. ALLERGIES NO KNOWN DRUG ALLERGIES. CURRENT INPATIENT MEDICATIONS 1. Heparin infusion per protocol. 2. Tylenol 650 mg q.4 hours as needed. 3. Dulcolax 10 mg per rectum as needed for constipation. 4. Cholecalciferol 1000 units p.o. daily. 5. Enoxaparin one dose of 110 mg. 6. Magnesium hydroxide 30 mL p.o. q.12 hours as needed for constipation. 7. Zofran 4 mg IV q.6 hours as needed for nausea and vomiting. 8. Potassium 40 mEq p.o. x1. 9. Abacavir/Lamivudine/Ziodvudine once daily. REVIEW OF SYSTEMS A 13-point review of systems were obtained, the following are the pertinent positives: The patient reports having had fair energy levels. Denies decreased appetite. Reports having had low-grade night sweats. Denies fevers. HEENT: Reports having headaches. Denies visual field deficits. Denies difficulty swallowing or soreness in the throat. RESPIRATORY: Denies difficulty breathing, cough or hemoptysis. CARDIOVASCULAR: Denies angina-like chest pain, PND, orthopnea. GASTROINTESTINAL: Denies nausea, vomiting, diarrhea hematochezia, melena, or abdominal distension. UROGENITAL: No complaints. STEEL SASH ERECTOR: No focal sensory or motor deficits. MUSCULOSKELETAL: He had been having on and off leg pain mostly in his left leg associated with some swelling. PHYSICAL EXAMINATION VITAL SIGNS: Vital signs dated 06/05/2016: Temperature 98.7 degrees Fahrenheit, heart rate 90 beats per minute, respiratory rate 9, blood pressure 139/106, O2 sats are 98% on 3 liters nasal cannula. GENERAL PHYSICAL APPEARANCE: Mr. Hayes is a middle-aged male, he is tall and muscular built, he is laying in bed in no apparent distress. HEENT: Head is atraumatic, normocephalic. Conjunctivae are non-pale. Sclerae are anicteric. EOMI. PERRLA. Oral exam - no pharyngeal erythema. NECK EXAM: No palpable cervical or supraclavicular adenopathy. RESPIRATORY EXAM: Good air movement bilaterally. No added breath sounds. CARDIOVASCULAR: Regular rate and rhythm. S1 plus S2. No obvious murmurs, rubs or gallops. ABDOMINAL EXAM: Protuberant belly, soft, nontender, nondistended. No palpable organ enlargement. LOWER EXTREMITIES: No pretibial edema. No calf tenderness. STEEL SASH ERECTOR: No focal sensory or motor deficits. LABORATORY FINDINGS Blood work dated 06/05/2016: WBC count 9.2, hemoglobin 15.3 g/dL, hematocrit 45%, MCV 103.9, platelet count 140. Absolute neutrophil count 2.7. Absolute lymphocyte count 4.2. Chemistries: Sodium 142, potassium 3.3, chloride 109, bicarbonate 23, BUN 19, creatinine 1.84, EGFR 46 mL/min, random glucose 180, calcium 8.5. BNP 72. Antiphospholipid antibodies are pending, circulating lupus anticoagulant pending, homocystine level is pending as well. Factor V Leiden mutation pending as well as Factor VIII activity. IMAGING STUDIES CT angiogram dated 06/05/2016: 1) Extensive bilateral pulmonary emboli. OTHER IMAGING STUDIES Echocardiogram dated 06/05/2016: 1) Left ventricle: Cavity size is normal, wall thickness is normal, systolic function is normal, estimated ejection fraction between 55-60%, normal wall motion. 2) Right ventricle: Cavity is moderately enlarged with [id number] reduced systolic function. ASSESSMENT Mr. Hayes is a 56-year-old male who presented to the emergency department early this morning when he woke up with acute onset difficulty breathing and chest pain. He was brought into the hospital via Emergency Medical Services and at the time of presentation had borderline hypotension and tachycardia. He was resuscitated and did require per the electronic medical record one dose of amiodarone. The patient was noted to have bilateral pulmonary emboli on further investigation, echocardiogram reveals a significant right heart functional impairment with severely reduced systolic function. He has been initiated on anticoagulation with heparin. Over the past five hours his clinical condition has improved significantly and he feels his shortness of breath and chest pain have resolved. He is requiring some oxygen supplementation. The Hematology service has been consulted to help establish a possible provoking factor for the pulmonary embolus and to help assist in long-term management. RECOMMENDATIONS 1. Bilateral pulmonary emboli: Apparently unprovoked by any recent long travel, surgery, acute illness or injury. He is not on any hormonal supplements. He does have a history of HIV, for which he is on treatment with triple antiviral therapy (HAART). The patient has had blood work ordered for antiphospholipid antibodies, circulating lupus anticoagulant, homocysteine level, antithrombin III deficiency as well as factor V Leiden. DISCUSSION After reviewing his hospital course thus far, his symptomatology as well as the treatment rendered it appears his pulmonary embolus though large in volume based on CT imaging criteria is submassive. Typically in situations where an individual presents with a submassive pulmonary embolus, i.e., not associated with hypotension requiring pressor support and mechanical ventilation, thrombolytic therapy is considered inappropriate/contraindicated. Typical management would include supportive care along with anticoagulation with standard agent such as heparin and/or Lovenox. In this situation I suspect it is appropriate to continue anticoagulation with heparin and to begin transitioning to an oral agent such as warfarin after 48 hours of continuous anticoagulation with heparin. I would avoid the oral anticoagulation agents such as Xarelto and Eliquis given his renal dysfunction at this point. Await the hypercoagulable workup. MD FILEMON Martinez/VICTOR MANUEL /5:34 PM /6:56 PM
--- NOTE | 2016-06-05 20:42 | RADRPT ---
EXAM DATE/TIME: 06/05/2016 18:57 [place] COMPARISON: No previous studies available for comparison. INDICATIONS : Pulmonary embolism. MEDICAL HISTORY : Hypertension. Pulmonary embolism. Cataracts. Substance use. SURGICAL HISTORY : Mastectomy, bilateral. Bunionectomy. ENCOUNTER: Initial ACUITY: 1 day PAIN SCORE: 0/10 LOCATION: Bilateral leg. TECHNIQUE: Venous ultrasound of the left and right leg was performed from the inguinal ligament to the proximal calf. Real-time, color Doppler and spectral tracing, compression and augmentation techniques were us ed. FINDINGS: RIGHT LEG: There is occlusive thrombus extending from the proximal superficial femoral vein to the popliteal vei n and extending below the knee as nonocclusive thrombus in both the tibial and peroneal veins. LEFT LEG: There is nonocclusive thrombus in the popliteal and peroneal veins. CONCLUSION: Bilateral lower extremity DVT as above. Aniket Turner MD on June 05, 2016 at 20:39 Board Certified Radiologist. This report was verified electronically.
--- NOTE | 2016-06-05 20:54 | EKG ---
Date Performed: 06/05/2016 Time Performed: 06:38:04 PTAGE: 56 years EKG: ATRIAL FLUTTER/TACHYCARDIA WITH RAPID VENTRICULAR RESPONSE INCOMPLETE RIGHT BUNDLE BRANCH B LOCK ST DEVIATION AND MODERATE T-WAVE ABNORMALITY, CONSIDER ANTERIOR ISCHEMIA ABNORMAL ECG NO PREVIOUS TRACING DOCTOR: Talon Virk Interpretating Date/Time 06/05/2016 20:53:40
[2016-06-05] MEDS: CHLORHEXIDINE GLUCONATE 2 % 1 PACK (2 CLOTHS)(taper/protocol) TOP SCH (20:57)
[2016-06-05] MEDS ORDERED: CHLORHEXIDINE GLUCONATE 2 % 1 PACK (2 CLOTHS)(extra cloths) TOP PRN (21:00)
[2016-06-06] VITALS (10 sets, daily range): BP systolic 122–147; BP diastolic 70–108; PULSE 73–103; RESP 20–32; TEMP 97.8–98.7; O2SAT 93–99
[2016-06-06 00:53] LABS: APTT (PATIENT) 81.8 SEC (24.3-30.1)
[2016-06-06] MEDS: SODIUM CHLOR 0.9% 1000 ML INJ 1,000 ML IV SCH ×2 (02:04→09:31)
--- NOTE | 2016-06-06 06:34 | PD.CARD.PN ---
Subjective Subjective Remarks Mild dyspnea. Chest tightness improving. No dizziness, palpitations. Slept poorly. Objective Medications Item Value Date Time Heparin Sodium/ 250 ml @ 0 mls/hr 06/05/16 1045 Dextrose TITRATE/IV 06/05/16 1236 Vital Signs / I&O Vital Signs Date Time Temp Pulse Resp B/P Pulse Ox O2 Delivery O2 Flow Rate FiO2 06/06/16 06:00 81 06/06/16 04:00 81 06/06/16 04:00 98.7 81 32 147/107 99 06/06/16 02:00 81 06/06/16 00:00 98.5 83 32 139/96 99 06/06/16 00:00 83 06/05/16 23:00 99 Nasal Cannula 2.00 06/05/16 22:00 87 06/05/16 20:00 98.1 87 32 158/96 99 06/05/16 20:00 88 06/05/16 18:00 98 06/05/16 16:00 90 06/05/16 16:00 98.7 98 32 139/97 99 06/05/16 15:00 98.7 96 9 139/106 98 06/05/16 14:16 101 18 125/83 98 Room Air 06/05/16 12:00 108 18 121/87 98 Room Air 06/05/16 10:00 105 18 125/87 98 Room Air 06/05/16 08:15 114 18 128/93 95 Nasal Cannula 3 06/05/16 07:00 115 18 90/64 98 Room Air 06/05/16 06:46 98.7 132 29 121/78 89 06/05/16 06:40 91 Nasal Cannula 4 06/05/16 06:40 29 91 Nasal Cannula 4 06/05/16 06:40 132 29 93 Nasal Cannula 4 I/O 06/05/16 06/05/16 06/05/16 06/06/16 06/06/16 06/06/16 07:00 15:00 23:00 07:00 15:00 23:00 Intake Total 1100 ml 1225 ml Balance 1100 ml 1225 ml Intake Oral 250 ml 250 ml IV Total 850 ml 975 ml # Voids 3 2 # Bowel Movements 2 2 Physical Exam GENERAL: Well developed, well nourished. No acute distress. HEENT: Jugular venous pressure is normal. CHEST: Lungs clear to auscultation bilaterally. Unlabored respiratory effort. CARDIAC: Regular rate and rhythm without S3, S4, or murmur. ABDOMEN: Soft, nontender, no hepatosplenomegaly. Bowel sounds present. EXTREMITIES: No clubbing, cyanosis, or edema. Laboratory Laboratory Tests Test 06/05/16 06/05/16 06/05/16 06/05/16 06:42 09:09 11:11 15:05 White Blood Count 7.8 TH/MM3 9.2 TH/MM3 Red Blood Count 4.63 MIL/MM3 4.33 MIL/MM3 Hemoglobin 16.4 GM/DL 15.3 GM/DL Bedside Hemoglobin 16.3 G/DL Hematocrit 48.0 % 45.0 % Bedside Hematocrit 48.0 % Mean Corpuscular Volume 103.7 FL 103.9 FL Mean Corpuscular Hemoglobin 35.5 PG 35.4 PG Mean Corpuscular Hemoglobin 34.3 % 34.1 % Concent Red Cell Distribution Width 15.0 % 15.0 % Platelet Count 155 TH/MM3 140 TH/MM3 Mean Platelet Volume 8.5 FL 7.8 FL Neutrophils (%) (Auto) 35.1 % Lymphocytes (%) (Auto) 54.0 % Monocytes (%) (Auto) 8.3 % Eosinophils (%) (Auto) 2.1 % Basophils (%) (Auto) 0.5 % Neutrophils # (Auto) 2.7 TH/MM3 Lymphocytes # (Auto) 4.2 TH/MM3 Monocytes # (Auto) 0.6 TH/MM3 Eosinophils # (Auto) 0.2 TH/MM3 Basophils # (Auto) 0.0 TH/MM3 CBC Comment DIFF FINAL Differential Comment Prothrombin Time 11.7 SEC Prothromb Time International 1.1 RATIO Ratio Activated Partial 22.8 SEC 23.7 SEC Thromboplast Time D-Dimer Quantitative (PE/DVT) 6.34 MG/L FEU Bedside Sodium 142 MMOL/L Sodium Level 143 MEQ/L Bedside Potassium 3.3 MMOL/L Potassium Level 3.3 MEQ/L Bedside Chloride 106 MMOL/L Chloride Level 109 MEQ/L Carbon Dioxide Level 23.3 MEQ/L Anion Gap 11 MEQ/L Bedside Blood Urea Nitrogen 21 MG/DL Blood Urea Nitrogen 19 MG/DL Creatinine 1.84 MG/DL Estimat Glomerular Filtration 46 ML/MIN Rate Bedside Glucose 180 MG/DL Random Glucose 182 MG/DL Calcium Level 8.5 MG/DL Magnesium Level 1.9 MG/DL Total Creatine Kinase 168 U/L Creatine Kinase MB 1.0 NG/ML Troponin I 0.04 NG/ML B-Type Natriuretic Peptide 72 PG/ML Blood Gas Puncture Site RT RADIAL Blood Gas Patient Temperature 98.6 Blood Gas HCO3 19 mmol/L Blood Gas Base Excess -5.1 mmol/L Blood Gas Oxygen Saturation 93 % Arterial Blood pH 7.39 Arterial Blood Partial 32 mmHg Pressure CO2 Arterial Blood Partial 113 mmHG Pressure O2 Arterial Blood Oxygen Content 20.8 Vol % Arterial Blood 3.5 % Carboxyhemoglobin Arterial Blood Methemoglobin 2.1 % Blood Gas Hemoglobin 15.9 G/DL Oxygen Delivery Device NASAL CANNULA Blood Gas Liter Flow 6 L/M Nasal Screen MRSA (PCR) NEGATIVE Test 06/05/16 06/06/16 18:06 00:36 Activated Partial 87.2 SEC 81.8 SEC Thromboplast Time Assessment and Plan Problem List: (1) Bilateral pulmonary embolism Assessment and Plan: Cardiac status stable overnight. No evidence for right sided heart failure. Moderate to severe RV dysfunction by echo though patient in fact has been hypertensive. LV function normal. Dr. Knutson's consult noted. REC continue anticoagulation therapy, repeat echo in a few months; will follow as needed the rest of his hospital stay Code Status full code Discussed Condition With patient Malcom Arndt MD Jun 06, 2016 06:34
[2016-06-06 07:12] LABS: AUTOMATED NEUTROPHIL # 2.5 TH/MM3 (1.8-7.7); BASOPHIL # 0.1 TH/MM3 (0-0.2); EOSINOPHIL # 0.1 TH/MM3 (0-0.4); EOSINOPHIL % 1.4 % (0.0-4.0); HEMATOCRIT 39.9 % (39.0-51.0); HEMO FLAGS DIFF FINAL; LYMPH % 50.1 % (9.0-44.0); LYMPHOCYTE # 3.2 TH/MM3 (1.0-4.8); MEAN CELL VOLUME 104.4 FL (80.0-100.0); MEAN CORPUSCULAR HEMOGLOBIN 34.7 PG (27.0-34.0); MEAN CORPUSCULAR HGB CONC 33.2 % (32.0-36.0); MONO % 8.4 % (0.0-8.0); NEUT % 39.1 % (16.0-70.0); PLATELET COUNT 116 TH/MM3 (150-450); RED BLOOD COUNT 3.83 MIL/MM3 (4.50-5.90); RED CELL DISTRIBUTION WIDTH 15.3 % (11.6-17.2); WHITE BLOOD COUNT 6.4 TH/MM3 (4.0-11.0)
[2016-06-06 07:14] LABS: APTT (PATIENT) 74.6 SEC (24.3-30.1)
[2016-06-06 07:33] LABS: BICARBONATE 20.9 MEQ/L (21.0-32.0); POTASSIUM 3.9 MEQ/L (3.5-5.1)
[2016-06-06] MEDS ORDERED: NON-FORMULARY DRUG (Abacavir-Dolutegravir-Lamivudine (Triumeq) 1 TAB) PO SCH (09:00)
[2016-06-06] MEDS: DOLUTEGRAVIR SODIUM 50 MG TAB PO SCH (09:30)
[2016-06-06] MEDS: ABACAVIR SULFATE 300 MG TAB PO SCH (09:30)
[2016-06-06] MEDS: CHOLECALCIFEROL (VIT D3) 1000 UNIT TAB PO SCH (09:30)
[2016-06-06] MEDS: SODIUM CHLORIDE 0.9% FLUSH 5 ML FLUSH FLUSH SCH ×2 (09:31→19:34)
[2016-06-06] MEDS ORDERED: METOPROLOL TARTRATE 5 MG/5 ML VIAL ONE (12:01)
[2016-06-06] MEDS ORDERED: METOPROLOL TARTRATE 5 MG/5 ML VIAL IV PUSH ONE (13:00)
[2016-06-06] MEDS ORDERED: NITROGLYCERIN 2% OINT 1 GM PACKET TOPICAL PRN (13:00)
--- NOTE | 2016-06-06 15:56 | HHI.PR ---
Subjective Remarks Follow up for bilateral PE, bilateral lower ext DVT, chest pain in a patient with HIV. Mr. Hayes was seen around noon. He reports an hour long substernal chest pressure. Denies any radiation of the pressure or diaphoresis although he does feel warm. He is currently on heparin drip. Denies any fever, chills. Objective Vitals Vital Signs Date Time Temp Pulse Resp B/P Pulse Ox O2 Delivery O2 Flow Rate FiO2 06/06/16 12:00 98.7 94 20 132/84 96 06/06/16 08:00 97.8 73 20 141/108 93 06/06/16 06:00 81 06/06/16 04:00 81 06/06/16 04:00 98.7 81 32 147/107 99 06/06/16 02:00 81 06/06/16 00:00 98.5 83 32 139/96 99 06/06/16 00:00 83 06/05/16 23:00 99 Nasal Cannula 2.00 06/05/16 22:00 87 06/05/16 20:00 98.1 87 32 158/96 99 06/05/16 20:00 88 06/05/16 18:00 98 06/05/16 16:00 90 06/05/16 16:00 98.7 98 32 139/97 99 I/O 06/05/16 06/05/16 06/05/16 06/06/16 06/06/16 06/06/16 07:00 15:00 23:00 07:00 15:00 23:00 Intake Total 1100 ml 1225 ml 1400 ml Balance 1100 ml 1225 ml 1400 ml Intake Oral 250 ml 250 ml 400 ml IV Total 850 ml 975 ml 1000 ml # Voids 3 2 1 # Bowel Movements 2 2 Result Diagram: 06/06/16 0649 06/06/16 0649 Imaging Last Impressions Chest X-Ray 06/05/16 0642 Signed Impressions: Service Date/Time: May 07:23 - CONCLUSION: No acute disease. Aniket Eric MD Lower Extremity Ultrasound 06/05/16 0000 Signed Impressions: Service Date/Time: May 18:57 - CONCLUSION: Bilateral lower extremity DVT as above. Aniket Turner MD CT Angiography 06/05/16 0000 Signed Impressions: Service Date/Time: May 08:38 - CONCLUSION: Extensive bilateral pulmonary embolism. Abdulaziz Woodson MD Objective Remarks GENERAL: AOX3, NAD. SKIN: Warm and dry. HEAD: Normocephalic. EYES: No scleral icterus. No injection or drainage. NECK: Supple, trachea midline. No JVD or lymphadenopathy. CARDIOVASCULAR: Irregularly irregular, tachycardic without murmurs, gallops, or rubs. RESPIRATORY: Breath sounds equal bilaterally. No accessory muscle use. GASTROINTESTINAL: Abdomen soft, non-tender, nondistended. MUSCULOSKELETAL: No cyanosis, or edema. BACK: Nontender without obvious deformity. No CVA tenderness. Procedures 06/05/2016 Echocardiogram - Procedure narrative: Transthoracic echocardiography. Image quality was fair. Scanning was performed from the parasternal, apical, and subcostal acoustic windows. - Left ventricle: The cavity size was normal. Wall thickness was normal. Systolic function was normal. The estimated ejection fraction was in the range of 55% to 60%. Wall motion was normal; there were no regional wall motion abnormalities. - Right ventricle: The cavity size was moderately enlarged with moderately to severely reduced systolic function. - Tricuspid valve: Mild regurgitation with no definite evidence for pulmonary hypertension. A/P Problem List: (1) Bilateral pulmonary embolism ICD Code: I26.99 Status: Acute (2) Acute kidney injury ICD Code: N17.9 Status: Acute (3) Hypertension ICD Code: I10 Status: Acute (4) HIV (human immunodeficiency virus infection) ICD Code: Z21 Status: Acute Assessment and Plan Mr. Hayes is a pleasant 56-year-old [employer] with a history of HIV, hypertension who presented to the emergency department today due to worsening shortness of breath that started 2 months ago. ED work up indicated bilateral extensive PE. Patient was initially hypotensive and tachycardic and hypoxic. However after 1 L of fluid and supplemental oxygen patient responded well and currently hemodynamically stable. - Detail plan outlined below. Patient complained of chest pressure around noon today. I obtained a focus history - patient's chest pain was substernal, non- radiating and not associated with nausea, vomiting or diaphoresis. On the unishear operator as well as physical exam, patient's heart rhythm was irregularly irregular with rapid ventricular rhythm. We administered 5mg of IV metoprolol, Nitroglycerine paste and obtained EKG, troponin. Total evaluation and management was necessary to evaluate for Acute coronary syndrome. Total critical care time spent more than 30 minutes. - Bilateral pulmonary embolism - Bilateral lower extremity DVT - EKG reviewed by me and Dr. Henao on 06/05/2016 - EKG shows S1Q3T3. - CT PE images reviewed by me on 06/05/2016. - Although initially tPA was considered after discussing with IR, patient was hemodynamically stable. - STAT Echo showed no severe RV dysfunction. - cardiology, critical care and hematology recommended conservative approach. - Continue heparin drip for now. We will initiate Warfarin likely on 2016. - NSTEMI - Patient's chest pain is concerning for cardiac chest pain. - New onset Atrial fibrillation - [id number] score 1 (HTN). - Troponin on admission 0.04. - Today, first troponin after chest started was 0.69. Second troponin is pending. - RN informed cardiology regarding elevated troponin who recommended no further action for now. - Metoprolol 5mg IV was given. Patient's rhythm converted to normal sinus rhythm, rate controlled. - Will start patient on Metoprolol 25 mg BID, Lipitor 40mg QHS, aspirin 81mg Qday. - Lipid profile in the AM. - Acute kidney injury - creatinine 1.84. We do not have a baseline creatinine for this patient. - BMP in the AM. - HIV - patient takes HAART medication on a regular basis. [facility]. Per patient, last CD4 count 900. - Will restart patient's home medication. - Hypertension - will hold verapamil for now. - Patient was slightly hypotensive when he presented to the ED. Currently hemodynamically stable. - If needed, we'll initiate amlodipine for hypertension. Full code. Heparin drip. Tone Caceres DO Jun 06, 2016 15:56
[2016-06-06] MEDS: CHLORHEXIDINE GLUCONATE 2 % 1 PACK (2 CLOTHS)(taper/protocol) TOP SCH (19:34)
[2016-06-06] MEDS: ATORVASTATIN 40 MG TAB PO SCH (21:44)
[2016-06-06] MEDS: METOPROLOL TARTRATE 25 MG TAB PO SCH (21:45)
[2016-06-07] VITALS (12 sets, daily range): BP systolic 100–150; BP diastolic 58–92; PULSE 52–103; RESP 11–21; TEMP 96.7–98.9; O2SAT 94–99
[2016-06-07 03:55] LABS: PHOSPHATIDYLSERINE AB IGA LESS THAN 20.0 U/mL (()); PHOSPHATIDYLSERINE AB IGM LESS THAN 25.0 U/mL (())
[2016-06-07 06:45] LABS: ANION GAP 9 MEQ/L (5-15); AST (GOT) 34 U/L (15-37); BICARBONATE 20.8 MEQ/L (21.0-32.0); BLOOD UREA NITROGEN 13 MG/DL (7-18); CHLORIDE 113 MEQ/L (98-107); GLOMERULAR FILTRATION RATE 69 ML/MIN (>89); POTASSIUM 3.9 MEQ/L (3.5-5.1); SODIUM (NA) 143 MEQ/L (136-145)
[2016-06-07 06:49] LABS: ALKALINE PHOSPHATASE 87 U/L (45-117); ALT (GPT) 49 U/L (12-78); HDL CHOLESTEROL 56.9 MG/DL (40.0-60.0); LDL CHOLESTEROL 62 MG/DL (0-99); TOTAL BILIRUBIN ADULT 0.4 MG/DL (0.2-1.0)
[2016-06-07] MEDS: CHOLECALCIFEROL (VIT D3) 1000 UNIT TAB PO SCH (08:17)
[2016-06-07] MEDS: ACETAMINOPHEN/HYDROcodone 325 MG/7.5 MG TAB PO PRN ×2 (08:17→19:10)
[2016-06-07] MEDS: DOLUTEGRAVIR SODIUM 50 MG TAB PO SCH (08:17)
[2016-06-07] MEDS: METOPROLOL TARTRATE 25 MG TAB PO SCH ×2 (08:17→20:18)
[2016-06-07] MEDS: ALLOPURINOL 100 MG TAB PO SCH ×3 (08:17→20:18)
[2016-06-07] MEDS: ABACAVIR SULFATE 300 MG TAB PO SCH (08:17)
[2016-06-07] MEDS: ASPIRIN EC 81 MG TABEC PO SCH (08:18)
[2016-06-07] MEDS: SODIUM CHLORIDE 0.9% FLUSH 5 ML FLUSH FLUSH SCH ×2 (08:36→20:18)
[2016-06-07 11:03] LABS: APTT (PATIENT) 52.6 SEC (24.3-30.1)
--- NOTE | 2016-06-07 11:05 | PD.ONC.PN ---
Subjective Subjective Remarks Afebrile overnight. Pt asking when he will get moved out of the ICU as he would like to take a shower. He denies chest pain. He continues to have SOB, mostly on exertion. Objective Data Date Time Temp Pulse Resp B/P Pulse Ox O2 Delivery O2 Flow Rate FiO2 06/07/16 08:00 60 06/07/16 07:28 98 Nasal Cannula 2.00 06/07/16 06:00 52 06/07/16 04:00 52 06/07/16 04:00 98.5 52 21 134/92 95 06/07/16 02:00 103 06/07/16 00:00 103 06/07/16 00:00 98.3 87 21 136/83 95 06/06/16 22:00 103 06/06/16 21:19 98 Nasal Cannula 2.00 06/06/16 20:00 98.5 103 21 137/97 95 06/06/16 20:00 103 06/06/16 16:00 98.3 93 20 122/70 95 06/06/16 12:00 98.7 94 20 132/84 96 Result Diagram: 06/06/16 0649 06/07/16 0509 Laboratory Results Laboratory Tests Test 06/06/16 06/06/16 06/07/16 12:20 19:30 05:09 Activated Partial 72.0 SEC Thromboplast Time Troponin I 0.69 NG/ML 0.57 NG/ML Sodium Level 143 MEQ/L Potassium Level 3.9 MEQ/L Chloride Level 113 MEQ/L Carbon Dioxide Level 20.8 MEQ/L Anion Gap 9 MEQ/L Blood Urea Nitrogen 13 MG/DL Creatinine 1.29 MG/DL Estimat Glomerular Filtration 69 ML/MIN Rate Random Glucose 129 MG/DL Calcium Level 8.1 MG/DL Total Bilirubin 0.4 MG/DL Aspartate Amino Transf 34 U/L (AST/SGOT) Alanine Aminotransferase 49 U/L (ALT/SGPT) Alkaline Phosphatase 87 U/L Total Protein 6.1 GM/DL Albumin 3.0 GM/DL Triglycerides Level 49 MG/DL Cholesterol Level 129 MG/DL LDL Cholesterol 62 MG/DL HDL Cholesterol 56.9 MG/DL Cholesterol/HDL Ratio 2.26 RATIO Administered Medications Medications (Trade) Dose Ordered Sig/Pranav Route PRN Reason Start Time Stop Time Status Last Admin Dose Admin IV Flush 2 ml 2 ml BID FLUSH 06/05/16 21:00 06/06/16 19:34 Heparin Sodium/ Dextrose (Heparin-D5W Inj) 250 ml @ 0 mls/hr TITRATE IV 06/05/16 10:45 06/05/16 12:36 Cholecalciferol (Vitamin D3) 1,000 units DAILY PO 06/06/16 09:00 06/07/16 08:17 Abacavir Sulfate (Ziagen) 600 mg DAILY PO 06/06/16 09:00 06/07/16 08:17 Lamivudine (Epivir) 300 mg DAILY PO 06/06/16 09:00 06/07/16 08:17 Miscellaneous Information Patient in critical care unit? Ass... [id number] XX 06/05/16 21:00 06/05/16 20:56 Chlorhexidine Gluconate (Chlorhexidine 2% Cloth) 3 pack DAILY@04 TOP 06/06/16 04:00 06/10/16 04:01 06/06/16 19:34 Nitroglycerin (Nitroglycerin 2% Oint) 1 inch Q8HR PRN TOPICAL Chest pain 06/06/16 13:00 06/06/16 13:04 Metoprolol Tartrate (Lopressor) 25 mg Q12HR PO 06/06/16 21:00 06/07/16 08:17 Atorvastatin Calcium (Lipitor) 40 mg HS PO 06/06/16 21:00 06/06/16 21:44 Aspirin (Ecotrin Ec) 81 mg DAILY PO 06/07/16 09:00 06/07/16 08:18 Allopurinol (Zyloprim) 100 mg BID PO 06/07/16 09:00 06/07/16 08:17 Acetaminophen/ Hydrocodone Bitart ([place] 7.5-325 Mg) 1 tab Q6H PRN PO PAIN SCALE 5 TO 10 06/07/16 08:00 06/07/16 08:17 Objective Remarks GENERAL: Middle-aged male sitting up in bed talking with visitor. SKIN: Warm and dry. HEAD: Normocephalic. EYES: No injection or drainage. NECK: Supple, trachea midline. CARDIOVASCULAR: +S1/S2. No murmur appreciated. RESPIRATORY: Breath sounds equal bilaterally. No accessory muscle use. GASTROINTESTINAL: Abdomen soft, non-tender, nondistended. EXTREMITIES: No cyanosis, or edema. NEUROLOGICAL: No obvious focal deficit. Awake, alert, and oriented x3. Assessment/Plan Problem List: (1) Bilateral pulmonary embolism Status: Acute Plan: -- On heparin drip -- We will transition patient to oral Coumadin today. -- He is not a good candidate for factor X agents due to his kidney function. -- Hypercoagulable workup pending. (2) HIV (human immunodeficiency virus infection) Status: Acute Plan: --On HAART therapy. Assessment 56-year-old male presented to the emergency room after calling an ambulance for severe shortness of breath and chest pain. Plan 1. PT/INR today; once resulted we will start him on Coumadin at 5mg. 2. Continue heparin drip until INR is therapeutic. 3. Await hypercoagulable workup. 4. Supportive care. Shannon Lozada Jun 07, 2016 11:05
[2016-06-07 11:23] LABS: PROTHROMBIN TIME - PATIENT 11.4 SEC (9.8-11.6)
[2016-06-07 11:35] LABS: AUTOMATED NEUTROPHIL # 4.4 TH/MM3 (1.8-7.7); BASOPHIL # 0.1 TH/MM3 (0-0.2); BASOPHIL % 0.7 % (0.0-2.0); EOSINOPHIL # 0.1 TH/MM3 (0-0.4); EOSINOPHIL % 1.2 % (0.0-4.0); HEMO FLAGS DIFF FINAL; LYMPHOCYTE # 2.2 TH/MM3 (1.0-4.8); MEAN CELL VOLUME 103.6 FL (80.0-100.0); MEAN CORPUSCULAR HGB CONC 33.7 % (32.0-36.0); MONO % 7.6 % (0.0-8.0); NEUT % 60.5 % (16.0-70.0); PLATELET COUNT 124 TH/MM3 (150-450); RED BLOOD COUNT 3.67 MIL/MM3 (4.50-5.90); RED CELL DISTRIBUTION WIDTH 14.6 % (11.6-17.2); WHITE BLOOD COUNT 7.3 TH/MM3 (4.0-11.0)
--- NOTE | 2016-06-07 12:14 | HHI.PR ---
Subjective Remarks Follow up for bilateral PE, bilateral lower ext DVT, NSTEMI. Mr. Hayes is doing well. Earlier today, he had some chest pressure and shortness of breath but that resolved. No fever, chills. Family members at bedside. Objective Vitals Vital Signs Date Time Temp Pulse Resp B/P Pulse Ox O2 Delivery O2 Flow Rate FiO2 06/07/16 08:00 60 06/07/16 08:00 98.9 76 12 100/58 96 06/07/16 07:28 98 Nasal Cannula 2.00 06/07/16 06:00 52 06/07/16 04:00 52 06/07/16 04:00 98.5 52 21 134/92 95 06/07/16 02:00 103 06/07/16 00:00 103 06/07/16 00:00 98.3 87 21 136/83 95 06/06/16 22:00 103 06/06/16 21:19 98 Nasal Cannula 2.00 06/06/16 20:00 98.5 103 21 137/97 95 06/06/16 20:00 103 06/06/16 16:00 98.3 93 20 122/70 95 I/O 06/06/16 06/06/16 06/06/16 06/07/16 06/07/16 06/07/16 07:00 15:00 23:00 07:00 15:00 23:00 Intake Total 1225 ml 1400 ml 133 ml 125 ml Balance 1225 ml 1400 ml 133 ml 125 ml Intake Oral 250 ml 400 ml IV Total 975 ml 1000 ml 133 ml 125 ml # Voids 2 1 2 2 # Bowel Movements 2 2 2 Result Diagram: 06/07/16 1121 06/07/16 0509 Imaging Last Impressions Chest X-Ray 06/05/16 0642 Signed Impressions: Service Date/Time: May 07:23 - CONCLUSION: No acute disease. Aniket Eric MD Lower Extremity Ultrasound 06/05/16 0000 Signed Impressions: Service Date/Time: May 18:57 - CONCLUSION: Bilateral lower extremity DVT as above. Aniket Turner MD CT Angiography 06/05/16 0000 Signed Impressions: Service Date/Time: May 08:38 - CONCLUSION: Extensive bilateral pulmonary embolism. Abdulaziz Woodson MD Objective Remarks GENERAL: AOX3, NAD. SKIN: Warm and dry. HEAD: Normocephalic. EYES: No scleral icterus. No injection or drainage. NECK: Supple, trachea midline. No JVD or lymphadenopathy. CARDIOVASCULAR: Irregularly irregular, tachycardic without murmurs, gallops, or rubs. RESPIRATORY: Breath sounds equal bilaterally. No accessory muscle use. GASTROINTESTINAL: Abdomen soft, non-tender, nondistended. MUSCULOSKELETAL: No cyanosis, or edema. BACK: Nontender without obvious deformity. No CVA tenderness. Procedures 06/05/2016 Echocardiogram - Procedure narrative: Transthoracic echocardiography. Image quality was fair. Scanning was performed from the parasternal, apical, and subcostal acoustic windows. - Left ventricle: The cavity size was normal. Wall thickness was normal. Systolic function was normal. The estimated ejection fraction was in the range of 55% to 60%. Wall motion was normal; there were no regional wall motion abnormalities. - Right ventricle: The cavity size was moderately enlarged with moderately to severely reduced systolic function. - Tricuspid valve: Mild regurgitation with no definite evidence for pulmonary hypertension. A/P Problem List: (1) Bilateral pulmonary embolism ICD Code: I26.99 Status: Acute (2) Acute kidney injury ICD Code: N17.9 Status: Acute (3) Hypertension ICD Code: I10 Status: Acute (4) HIV (human immunodeficiency virus infection) ICD Code: Z21 Status: Acute Assessment and Plan Mr. Hayes is a pleasant 56-year-old [employer] with a history of HIV, hypertension who presented to the emergency department today due to worsening shortness of breath that started 2 months ago. ED work up indicated bilateral extensive PE. Patient was initially hypotensive and tachycardic and hypoxic. However after 1 L of fluid and supplemental oxygen patient responded well and currently hemodynamically stable. - Bilateral pulmonary embolism - Bilateral lower extremity DVT - EKG reviewed by me and Dr. Henao on 06/05/2016 - EKG shows S1Q3T3. - CT PE images reviewed by me on 06/05/2016. - Although initially tPA was considered after discussing with IR, patient was hemodynamically stable. - STAT Echo showed no severe RV dysfunction. - cardiology, critical care and hematology recommended conservative approach. - Continue heparin drip for now. Warfarin 5mg Qday started today. - Continue heparin and Warfarin for at least 5 days with two days of therapeutic INR on warfarin. - Discussed with patient regarding Lovenox 1mg/kg BID and warfarin which can be done at home. - However, he prefers to do the bridging in the hospital. I think this is reasonable considering patient's significant DVT, PE burden. - NSTEMI - Patient's chest pain is concerning for cardiac chest pain. - New onset Atrial fibrillation - [id number] score 1 (HTN). - Troponin on admission 0.04. - Today, first troponin after chest started was 0.69. Second troponin is 0.57. - RN informed cardiology on 06/06/2016 regarding elevated troponin who recommended no further action for now. - Metoprolol 5mg IV was given. Patient's rhythm converted to normal sinus rhythm, rate controlled. - Will start patient on Metoprolol 25 mg BID, Lipitor 40mg QHS, aspirin 81mg Qday. - Lipid profile pending today. - Acute kidney injury - creatinine 1.84 --> 1.06 --> 1.29. - BMP pending today. - HIV - patient takes HAART medication on a regular basis. [facility]. Per patient, last CD4 count 900. - Will restart patient's home medication. - Hypertension - will hold verapamil for now. - Patient was slightly hypotensive when he presented to the ED. Currently hemodynamically stable. - If needed, we'll initiate amlodipine for hypertension. Full code. Heparin drip, warfarin. Tone Caceres DO Jun 07, 2016 12:13 pm
[2016-06-07 12:23] LABS: ALKALINE PHOSPHATASE 89 U/L (45-117); ALT (GPT) 49 U/L (12-78); ANION GAP 9 MEQ/L (5-15); AST (GOT) 30 U/L (15-37); BICARBONATE 22.5 MEQ/L (21.0-32.0); BLOOD UREA NITROGEN 13 MG/DL (7-18); CHLORIDE 111 MEQ/L (98-107); GLOMERULAR FILTRATION RATE 76 ML/MIN (>89); POTASSIUM 3.8 MEQ/L (3.5-5.1); SODIUM (NA) 142 MEQ/L (136-145); TOTAL BILIRUBIN ADULT 0.4 MG/DL (0.2-1.0)
[2016-06-07] MEDS: WARFARIN SOD 5 MG TAB PO SCH (15:40)
[2016-06-07] MEDS: HEPARIN-D5W INJ 250 ML IV SCH (16:04)
[2016-06-07] MEDS: ATORVASTATIN 40 MG TAB PO SCH (20:18)
[2016-06-07] MEDS: CHLORHEXIDINE GLUCONATE 2 % 1 PACK (2 CLOTHS)(taper/protocol) TOP SCH (20:18)
[2016-06-08] VITALS: BP 129/81; PULSE 67; RESP 20; TEMP 97.7; O2SAT 97
[2016-06-08 04:00] VITALS: BP 146/86; PULSE 58; RESP 20; TEMP 97.5; O2SAT 98
[2016-06-08] MEDS: ACETAMINOPHEN/HYDROcodone 325 MG/7.5 MG TAB PO PRN ×3 (05:06→21:56)
[2016-06-08 05:22] LABS: HEMATOCRIT 38.4 % (39.0-51.0); MEAN CORPUSCULAR HEMOGLOBIN 35.4 PG (27.0-34.0); MEAN CORPUSCULAR HGB CONC 34.4 % (32.0-36.0); PLATELET COUNT 123 TH/MM3 (150-450); RED BLOOD COUNT 3.73 MIL/MM3 (4.50-5.90); REVIEW FLAG FINAL; WHITE BLOOD COUNT 6.7 TH/MM3 (4.0-11.0)
[2016-06-08 05:35] LABS: PROTHROMBIN TIME - PATIENT 11.6 SEC (9.8-11.6)
[2016-06-08 05:45] LABS: BICARBONATE 26.1 MEQ/L (21.0-32.0)
[2016-06-08 07:06] LABS: APTT (PATIENT) 48.9 SEC (24.3-30.1)
[2016-06-08 08:00] VITALS: BP 129/77; PULSE 48; RESP 17; TEMP 96.8; O2SAT 95
[2016-06-08] MEDS: SODIUM CHLORIDE 0.9% FLUSH 5 ML FLUSH FLUSH SCH ×2 (09:00→22:01)
[2016-06-08] MEDS: ABACAVIR SULFATE 300 MG TAB PO SCH (09:41)
[2016-06-08] MEDS: METOPROLOL TARTRATE 25 MG TAB PO SCH ×2 (09:41→21:57)
[2016-06-08] MEDS: ASPIRIN EC 81 MG TABEC PO SCH (09:41)
[2016-06-08] MEDS: DOLUTEGRAVIR SODIUM 50 MG TAB PO SCH (09:41)
[2016-06-08] MEDS: ALLOPURINOL 100 MG TAB PO SCH (09:41)
[2016-06-08] MEDS: CHOLECALCIFEROL (VIT D3) 1000 UNIT TAB PO SCH (09:41)
[2016-06-08] MEDS: HEPARIN-D5W INJ 250 ML IV SCH (09:58)
[2016-06-08 11:38] VITALS: O2SAT 94
[2016-06-08 12:00] VITALS: BP 165/91; PULSE 55; RESP 17; TEMP 96.7; O2SAT 96
--- NOTE | 2016-06-08 13:43 | HHI.PR ---
Subjective Remarks Follow up PE, DVT, non-ST elevation ME. Patient still having intermittent chest pain and dyspnea. States that they are both improved compared to yesterday. Reports foul odor to his breath, which he states started today. He reports having brushes teeth twice today but is unable to get the odor to improve. Objective Vitals Vital Signs Date Time Temp Pulse Resp B/P Pulse Ox O2 Delivery O2 Flow Rate FiO2 06/08/16 12:00 96.7 55 17 165/91 96 06/08/16 11:38 94 Nasal Cannula 2.00 06/08/16 08:00 96.8 48 17 129/77 95 06/08/16 04:00 97.5 58 20 146/86 98 06/08/16 00:00 97.7 67 20 129/81 97 06/07/16 20:07 64 06/07/16 20:00 98.4 64 20 137/84 96 06/07/16 16:20 96.7 64 17 150/90 94 06/07/16 16:00 54 06/07/16 16:00 98.6 54 20 137/91 96 I/O 06/07/16 06/07/16 06/07/16 06/08/16 06/08/16 06/08/16 07:00 15:00 23:00 07:00 15:00 23:00 Intake Total 125 ml 773 ml 840 ml 108 ml Output Total 900 ml 400 ml Balance 125 ml -127 ml 840 ml -292 ml Intake Oral 650 ml 720 ml 0 ml IV Total 125 ml 123 ml 120 ml 108 ml Output Urine Total 900 ml 400 ml # Voids 2 1 # Bowel Movements 2 1 Result Diagram: 06/08/16 0455 06/08/16 0455 Imaging Last Impressions Chest X-Ray 06/05/16 0642 Signed Impressions: Service Date/Time: May 07:23 - CONCLUSION: No acute disease. Aniket Eric MD Lower Extremity Ultrasound 06/05/16 0000 Signed Impressions: Service Date/Time: May 18:57 - CONCLUSION: Bilateral lower extremity DVT as above. Aniket Turner MD CT Angiography 06/05/16 0000 Signed Impressions: Service Date/Time: May 08:38 - CONCLUSION: Extensive bilateral pulmonary embolism. Abdulaziz Woodson MD Objective Remarks General: No acute distress. Heart: Regular rate and rhythm. No murmur. Lungs: Clear to auscultation bilaterally. No wheezes, rales, or rhonchi. Breathing is nonlabored. Abdomen: Soft, nontender, nondistended. Extremities: Trace to 1+ bilateral lower extremity edema. Psych: Alert and oriented. Procedures 06/05/2016 Echocardiogram - Procedure narrative: Transthoracic echocardiography. Image quality was fair. Scanning was performed from the parasternal, apical, and subcostal acoustic windows. - Left ventricle: The cavity size was normal. Wall thickness was normal. Systolic function was normal. The estimated ejection fraction was in the range of 55% to 60%. Wall motion was normal; there were no regional wall motion abnormalities. - Right ventricle: The cavity size was moderately enlarged with moderately to severely reduced systolic function. - Tricuspid valve: Mild regurgitation with no definite evidence for pulmonary hypertension. Urinary Catheter: No Vascular Central Line Catheter: No A/P Problem List: (1) Bilateral pulmonary embolism ICD Code: I26.99 Status: Acute (2) Acute kidney injury ICD Code: N17.9 Status: Acute (3) Hypertension ICD Code: I10 Status: Chronic (4) HIV (human immunodeficiency virus infection) ICD Code: Z21 Status: Acute (5) DVT of lower extremity, bilateral ICD Code: I82.403 Status: Acute (6) Non-ST elevation [place] (NSTEMI) ICD Code: I21.4 Status: Acute Assessment and Plan 1. Bilateral pulmonary embolism, bilateral lower extremity DVT: Continue Coumadin with heparin drip to bridge to therapeutic INR. 2. Non-ST elevation ME: Cardiology was notified regarding increased troponin and recommended no further intervention at this time. 3. New onset atrial fibrillation: Continue metoprolol, statin, aspirin. 4. Acute kidney injury: Continue IV fluids. Monitor labs. 5. HIV: Patient takes HAART on a regular basis. [facility] Last CD4 count was 900 per patient report. 6. Hypertension: Verapamil on hold secondary to hypotension upon presentation to the ER. 7. Gout: Patient reporting active gout pain in his knee, hand, and feet. Allopurinol on hold. Mayito Cantu MD Jun 08, 2016 13:43
[2016-06-08] MEDS: WARFARIN SOD 5 MG TAB PO SCH (16:02)
[2016-06-08 16:11] VITALS: BP 123/85; PULSE 53; RESP 18; TEMP 96.6; O2SAT 97
[2016-06-08] MEDS: ATORVASTATIN 40 MG TAB PO SCH (21:57)
[2016-06-09] VITALS (8 sets, daily range): BP systolic 126–139; BP diastolic 70–83; PULSE 48–60; RESP 14–20; TEMP 95.8–98.6; O2SAT 95–98
[2016-06-09] MEDS: HEPARIN-D5W INJ 250 ML IV SCH (03:27)
[2016-06-09] MEDS: CHLORHEXIDINE GLUCONATE 2 % 1 PACK (2 CLOTHS)(taper/protocol) TOP SCH ×2 (04:00→20:33)
[2016-06-09 04:09] LABS: BLOOD, URINE MOD (NEG); COMMENT (UR) CULT NOT INDICATED; CULTURE IF INDICATED CULT NOT INDICATED; GLUCOSE,URINE NEG (NEG); KETONE, URINE NEG (NEG); MUCUS URINE FEW /lpf (OCC); NITRITE,URINE NEG (NEG); URINE COLOR YELLOW (YELLW/STRAW)
[2016-06-09 05:05] LABS: AUTOMATED NEUTROPHIL # 3.8 TH/MM3 (1.8-7.7); BASOPHIL # 0.1 TH/MM3 (0-0.2); BASOPHIL % 0.7 % (0.0-2.0); EOSINOPHIL # 0.1 TH/MM3 (0-0.4); EOSINOPHIL % 1.5 % (0.0-4.0); HEMATOCRIT 35.4 % (39.0-51.0); HEMO FLAGS DIFF FINAL; LYMPH % 38.8 % (9.0-44.0); LYMPHOCYTE # 2.9 TH/MM3 (1.0-4.8); MEAN CELL VOLUME 103.4 FL (80.0-100.0); MEAN CORPUSCULAR HEMOGLOBIN 35.8 PG (27.0-34.0); MEAN CORPUSCULAR HGB CONC 34.7 % (32.0-36.0); MONO % 8.4 % (0.0-8.0); NEUT % 50.6 % (16.0-70.0); PLATELET COUNT 120 TH/MM3 (150-450); RED BLOOD COUNT 3.42 MIL/MM3 (4.50-5.90); RED CELL DISTRIBUTION WIDTH 14.3 % (11.6-17.2); WHITE BLOOD COUNT 7.4 TH/MM3 (4.0-11.0)
[2016-06-09 05:20] LABS: PROTHROMBIN TIME - PATIENT 11.6 SEC (9.8-11.6)
[2016-06-09 05:28] LABS: ANION GAP 9 MEQ/L (5-15); AST (GOT) 61 U/L (15-37); BICARBONATE 24.2 MEQ/L (21.0-32.0); BLOOD UREA NITROGEN 12 MG/DL (7-18); CHLORIDE 108 MEQ/L (98-107); GLOMERULAR FILTRATION RATE 70 ML/MIN (>89); POTASSIUM 3.7 MEQ/L (3.5-5.1); SODIUM (NA) 141 MEQ/L (136-145)
[2016-06-09 05:32] LABS: ALKALINE PHOSPHATASE 106 U/L (45-117); ALT (GPT) 93 U/L (12-78); TOTAL BILIRUBIN ADULT 0.3 MG/DL (0.2-1.0)
[2016-06-09] MEDS: ACETAMINOPHEN/HYDROcodone 325 MG/7.5 MG TAB PO PRN ×2 (08:11→20:39)
[2016-06-09] MEDS: SODIUM CHLORIDE 0.9% FLUSH 5 ML FLUSH FLUSH SCH ×2 (08:11→20:33)
[2016-06-09] MEDS: METOPROLOL TARTRATE 25 MG TAB PO SCH ×2 (08:11→20:33)
[2016-06-09] MEDS: CHOLECALCIFEROL (VIT D3) 1000 UNIT TAB PO SCH (08:11)
[2016-06-09] MEDS: ASPIRIN EC 81 MG TABEC PO SCH (08:11)
[2016-06-09] MEDS: DOLUTEGRAVIR SODIUM 50 MG TAB PO SCH (08:15)
[2016-06-09] MEDS: ABACAVIR SULFATE 300 MG TAB PO SCH (08:15)
--- NOTE | 2016-06-09 10:38 | PD.ONC.PN ---
Subjective Subjective Remarks Afebrile overnight. Patient resting comfortably, He is tolerating breakfast. He states he has no chest pain or shortness of breath today. He noticed some blood and blood clots in his urine earlier today. Objective Data Date Time Temp Pulse Resp B/P Pulse Ox O2 Delivery O2 Flow Rate FiO2 06/09/16 08:16 96 21 06/09/16 08:00 97.7 50 16 131/70 98 06/09/16 04:00 97.6 56 20 126/81 98 06/09/16 00:00 98.6 60 20 128/78 96 06/08/16 21:11 Nasal Cannula 2.00 06/08/16 16:11 96.6 53 18 123/85 97 06/08/16 12:00 96.7 55 17 165/91 96 06/08/16 11:38 94 Nasal Cannula 2.00 Result Diagram: 06/09/16 0440 06/09/16 0440 Laboratory Results Laboratory Tests Test 06/09/16 06/09/16 03:55 04:40 Urine Color YELLOW Urine Turbidity HAZY Urine pH 6.0 Urine Specific [place] 1.012 Urine Protein NEG mg/dL Urine Glucose (UA) NEG mg/dL Urine Ketones NEG mg/dL Urine Occult Blood MOD Urine Nitrite NEG Urine Bilirubin NEG Urine Urobilinogen 2.0 MG/DL Urine Leukocyte Esterase NEG Urine RBC 55 /hpf Urine WBC 4 /hpf Urine Mucus FEW /lpf Microscopic Urinalysis Comment CULT NOT INDICATED White Blood Count 7.4 TH/MM3 Red Blood Count 3.42 MIL/MM3 Hemoglobin 12.3 GM/DL Hematocrit 35.4 % Mean Corpuscular Volume 103.4 FL Mean Corpuscular Hemoglobin 35.8 PG Mean Corpuscular Hemoglobin 34.7 % Concent Red Cell Distribution Width 14.3 % Platelet Count 120 TH/MM3 Mean Platelet Volume 8.5 FL Neutrophils (%) (Auto) 50.6 % Lymphocytes (%) (Auto) 38.8 % Monocytes (%) (Auto) 8.4 % Eosinophils (%) (Auto) 1.5 % Basophils (%) (Auto) 0.7 % Neutrophils # (Auto) 3.8 TH/MM3 Lymphocytes # (Auto) 2.9 TH/MM3 Monocytes # (Auto) 0.6 TH/MM3 Eosinophils # (Auto) 0.1 TH/MM3 Basophils # (Auto) 0.1 TH/MM3 CBC Comment DIFF FINAL Differential Comment Prothrombin Time 11.6 SEC Prothromb Time International 1.0 RATIO Ratio Activated Partial 50.0 SEC Thromboplast Time Sodium Level 141 MEQ/L Potassium Level 3.7 MEQ/L Chloride Level 108 MEQ/L Carbon Dioxide Level 24.2 MEQ/L Anion Gap 9 MEQ/L Blood Urea Nitrogen 12 MG/DL Creatinine 1.28 MG/DL Estimat Glomerular Filtration 70 ML/MIN Rate Random Glucose 119 MG/DL Calcium Level 7.9 MG/DL Total Bilirubin 0.3 MG/DL Aspartate Amino Transf 61 U/L (AST/SGOT) Alanine Aminotransferase 93 U/L (ALT/SGPT) Alkaline Phosphatase 106 U/L Total Protein 6.2 GM/DL Albumin 2.9 GM/DL Administered Medications Medications (Trade) Dose Ordered Sig/Pranav Route PRN Reason Start Time Stop Time Status Last Admin Dose Admin IV Flush 2 ml 2 ml BID FLUSH 06/05/16 21:00 06/08/16 22:01 Heparin Sodium/ Dextrose (Heparin-D5W Inj) 250 ml @ 0 mls/hr TITRATE IV 06/05/16 10:45 06/09/16 03:27 Cholecalciferol (Vitamin D3) 1,000 units DAILY PO 06/06/16 09:00 06/09/16 08:11 Abacavir Sulfate (Ziagen) 600 mg DAILY PO 06/06/16 09:00 06/08/16 09:41 Lamivudine (Epivir) 300 mg DAILY PO 06/06/16 09:00 06/08/16 09:41 Miscellaneous Information Patient in critical care unit? Ass... [id number] XX 06/05/16 21:00 06/05/16 20:56 Chlorhexidine Gluconate (Chlorhexidine 2% Cloth) 3 pack DAILY@04 TOP 06/06/16 04:00 06/10/16 04:01 06/06/16 19:34 Nitroglycerin (Nitroglycerin 2% Oint) 1 inch Q8HR PRN TOPICAL Chest pain 06/06/16 13:00 06/06/16 13:04 Metoprolol Tartrate (Lopressor) 25 mg Q12HR PO 06/06/16 21:00 06/09/16 08:11 Atorvastatin Calcium (Lipitor) 40 mg HS PO 06/06/16 21:00 06/08/16 21:57 Aspirin (Ecotrin Ec) 81 mg DAILY PO 06/07/16 09:00 06/09/16 08:11 Allopurinol (Zyloprim) 100 mg BID PO 06/07/16 09:00 Hold 06/08/16 09:41 Acetaminophen/ Hydrocodone Bitart ([place] 7.5-325 Mg) 1 tab Q6H PRN PO PAIN SCALE 5 TO 10 06/07/16 08:00 06/09/16 08:11 Warfarin Sodium (Coumadin) 5 mg DAILY@1600 PO 06/07/16 16:00 06/08/16 16:02 Objective Remarks GENERAL: Middle aged male, sitting up in bed eating breakfast and watching TV, in nad. SKIN: Warm and dry. HEAD: Normocephalic. EYES: No injection or drainage. NECK: Supple, trachea midline. CARDIOVASCULAR: Regular rate and rhythm RESPIRATORY: Breath sounds equal bilaterally. No accessory muscle use. GASTROINTESTINAL: Abdomen soft, non-tender, nondistended. EXTREMITIES: No cyanosis NEUROLOGICAL: awake and alert, normal speech. moving all extremities. Assessment/Plan Problem List: (1) Bilateral pulmonary embolism Status: Acute Plan: on heparin bridge to coumadin -- He is not a good candidate for factor X agents due to his kidney function. -- Hypercoagulable workup pending. (2) HIV (human immunodeficiency virus infection) Status: Acute Plan: --On HAART therapy. Assessment 56-year-old male presented to the emergency room after calling an ambulance for severe shortness of breath and chest pain. Plan 1. continue heparin bridge to coumadin 2. await hypercoagulable workup Kelly Rogers Jun 09, 2016 10:38
--- NOTE | 2016-06-09 12:36 | HHI.PR ---
Subjective Remarks Follow up PE/DVT, hematuria. Patient states that he passed a blood clot in his urine today. He has also had hematuria overnight. Dyspnea is improving. No chest pain. Objective Vitals Vital Signs Date Time Temp Pulse Resp B/P Pulse Ox O2 Delivery O2 Flow Rate FiO2 06/09/16 08:16 96 21 06/09/16 08:00 97.7 50 16 131/70 98 06/09/16 04:00 97.6 56 20 126/81 98 06/09/16 00:00 98.6 60 20 128/78 96 06/08/16 21:11 Nasal Cannula 2.00 06/08/16 16:11 96.6 53 18 123/85 97 I/O 06/08/16 06/08/16 06/08/16 06/09/16 06/09/16 06/09/16 07:00 15:00 23:00 07:00 15:00 23:00 Intake Total 108 ml 720 ml 1196 ml 122 ml Output Total 400 ml 200 ml Balance -292 ml 720 ml 1196 ml -78 ml Intake Oral 0 ml 720 ml 960 ml 0 ml IV Total 108 ml 236 ml 122 ml Output Urine Total 400 ml 200 ml # Voids 3 1 # Bowel Movements 0 Result Diagram: 06/09/16 0440 06/09/16 0440 Imaging Last Impressions Chest X-Ray 06/05/16 0642 Signed Impressions: Service Date/Time: May 07:23 - CONCLUSION: No acute disease. Aniket Eric MD Lower Extremity Ultrasound 06/05/16 0000 Signed Impressions: Service Date/Time: May 18:57 - CONCLUSION: Bilateral lower extremity DVT as above. Aniket Turner MD CT Angiography 06/05/16 0000 Signed Impressions: Service Date/Time: May 08:38 - CONCLUSION: Extensive bilateral pulmonary embolism. Abdulaziz Woodson MD Objective Remarks General: No acute distress. Heart: Regular rate and rhythm. No murmur. Lungs: Clear to auscultation bilaterally. No wheezes, rales, or rhonchi. Breathing is nonlabored. Abdomen: Soft, nontender, nondistended. Extremities: 1+ bilateral lower extremity edema. Psych: Alert and oriented. Procedures 06/05/2016 Echocardiogram - Procedure narrative: Transthoracic echocardiography. Image quality was fair. Scanning was performed from the parasternal, apical, and subcostal acoustic windows. - Left ventricle: The cavity size was normal. Wall thickness was normal. Systolic function was normal. The estimated ejection fraction was in the range of 55% to 60%. Wall motion was normal; there were no regional wall motion abnormalities. - Right ventricle: The cavity size was moderately enlarged with moderately to severely reduced systolic function. - Tricuspid valve: Mild regurgitation with no definite evidence for pulmonary hypertension. Urinary Catheter: No Vascular Central Line Catheter: No A/P Problem List: (1) Bilateral pulmonary embolism ICD Code: I26.99 Status: Acute (2) Acute kidney injury ICD Code: N17.9 Status: Acute (3) Hypertension ICD Code: I10 Status: Chronic (4) HIV (human immunodeficiency virus infection) ICD Code: Z21 Status: Acute (5) DVT of lower extremity, bilateral ICD Code: I82.403 Status: Acute (6) Non-ST elevation [place] (NSTEMI) ICD Code: I21.4 Status: Acute (7) Hematuria ICD Code: R31.9 Status: Acute Assessment and Plan 1. Bilateral pulmonary embolism, bilateral lower extremity DVT: Continue Coumadin with heparin drip to bridge to therapeutic INR. 2. Non-ST elevation VA: Cardiology was notified regarding increased troponin and recommended no further intervention at this time. 3. New onset atrial fibrillation: Continue metoprolol, statin, aspirin. 4. Acute kidney injury: Continue IV fluids. Monitor labs. 5. HIV: Patient takes HAART on a regular basis. [facility]. Last CD4 count was 900 per patient report. 6. Hypertension: Verapamil on hold secondary to hypotension upon presentation to the ER. 7. Gout: Does not appear to be an active flare. Allopurinol on hold. 8. Hematuria: UA showed moderate occult blood. H/H stable. Discussed with hematology. Will need to continue anticoagulation. Consult urology. Mayito Cantu MD Jun 09, 2016 12:36
[2016-06-09 16:54] LABS: HEMATOCRIT 36.6 % (39.0-51.0); REVIEW FLAG FINAL
[2016-06-09 17:54] LABS: THROMBIN TIME FOR LA ND sec (13-19)
[2016-06-09] MEDS: WARFARIN SOD 5 MG TAB PO SCH (18:05)
[2016-06-09] MEDS ORDERED: IOHEXOL 350 MG/ML 10 ML VIAL (for RAD DIAG) IV ONE (20:04)
[2016-06-09] MEDS: ATORVASTATIN 40 MG TAB PO SCH (20:33)
--- NOTE | 2016-06-09 21:31 | RADRPT ---
EXAM DATE/TIME: 06/09/2016 19:55 [facility] COMPARISON: No previous studies available for comparison. INDICATIONS : Hematuria since last night IV CONTRAST: 71 cc Omnipaque 350 (iohexol) IV ORAL CONTRAST: No oral contrast ingested. RADIATION DOSE: 17.58 CTDIvol (mGy) MEDICAL HISTORY : Hypertension. HIV. SURGICAL HISTORY : None. ENCOUNTER: Initial ACUITY: 2 days PAIN SCALE: 6/10 LOCATION: Bilateral lower quadrant TECHNIQUE: Volumetric scanning of the abdomen and pelvis was performed. Using automated exposure control and ad justment of the mA and/or kV according to patient size, radiation dose was kept as low as reasonably achievable to obtain optimal diagnostic quality images. FINDINGS: There is a small right-sided pleural effusion. Bibasilar airspace disease. No acute bony abnormalitie s. No acute findings in the liver, spleen, kidneys or pancreas. Calcified gallstones in the gallbladder. Mild adrenal enlargement bilaterally. Delayed images reveal no evidence for obstructive uropathy. No filling defects identified within the bladder. CONCLUSION: 1. Small right-sided pleural effusion. Basilar atelectasis and scarring. 2. Multiple calcified gallstones in the gallbladder. 3. Mild anasarca. No bowel obstruction or free air. Trace free fluid. 4. No renal calculi or evidence for obstructive uropathy. No bladder calculi are seen. Chan Vieyra MD on June 09, 2016 at 21:26 Board Certified Radiologist. This report was verified electronically.
--- NOTE | 2016-06-09 23:52 | EKG ---
Date Performed: 06/06/2016 Time Performed: 12:10:31 PTAGE: 56 years EKG: ATRIAL FIBRILLATION ST DEVIATION AND MODERATE T-WAVE ABNORMALITY, CONSIDER ANTERIOR ISCHEMI A ABNORMAL ECG PREVIOUS TRACING : 06/05/2016 06.38 Compared to the previous tracing, rate has decreased and no w afib, with a decrease in the ST/T wave changes DOCTOR: Rashad Bowers Interpretating Date/Time 06/09/2016 23:51:46
[2016-06-10] VITALS: BP 137/68; PULSE 50; RESP 19; TEMP 97.6; O2SAT 94
[2016-06-10 04:00] VITALS: BP 126/72; PULSE 50; RESP 19; TEMP 97.4; O2SAT 96
[2016-06-10 05:31] LABS: AUTOMATED NEUTROPHIL # 2.2 TH/MM3 (1.8-7.7); BASOPHIL % 0.6 % (0.0-2.0); EOSINOPHIL # 0.1 TH/MM3 (0-0.4); EOSINOPHIL % 2.2 % (0.0-4.0); HEMATOCRIT 33.9 % (39.0-51.0); HEMO FLAGS DIFF FINAL; LYMPHOCYTE # 2.4 TH/MM3 (1.0-4.8); MEAN CELL VOLUME 102.8 FL (80.0-100.0); MEAN CORPUSCULAR HEMOGLOBIN 35.4 PG (27.0-34.0); MEAN CORPUSCULAR HGB CONC 34.4 % (32.0-36.0); MONO % 9.9 % (0.0-8.0); NEUT % 41.3 % (16.0-70.0); PLATELET COUNT 134 TH/MM3 (150-450); RED CELL DISTRIBUTION WIDTH 14.5 % (11.6-17.2); WHITE BLOOD COUNT 5.2 TH/MM3 (4.0-11.0)
[2016-06-10 05:46] LABS: APTT (PATIENT) 49.5 SEC (24.3-30.1)
[2016-06-10 06:18] LABS: ALKALINE PHOSPHATASE 97 U/L (45-117); ANION GAP 7 MEQ/L (5-15); AST (GOT) 41 U/L (15-37); BICARBONATE 28.3 MEQ/L (21.0-32.0); BLOOD UREA NITROGEN 11 MG/DL (7-18); CHLORIDE 108 MEQ/L (98-107); MAGNESIUM 1.9 MG/DL (1.5-2.5); POTASSIUM 3.8 MEQ/L (3.5-5.1); SODIUM (NA) 143 MEQ/L (136-145); TOTAL BILIRUBIN ADULT 0.5 MG/DL (0.2-1.0)
[2016-06-10 06:38] LABS: ALT (GPT) 88 U/L (12-78); GLOMERULAR FILTRATION RATE 75 ML/MIN (>89)
[2016-06-10 08:00] VITALS: BP 135/87; PULSE 48; RESP 19; TEMP 98.6; O2SAT 100
[2016-06-10 08:06] VITALS: PULSE 50
[2016-06-10] MEDS: ASPIRIN EC 81 MG TABEC PO SCH (08:53)
[2016-06-10] MEDS: ABACAVIR SULFATE 300 MG TAB PO SCH (08:53)
[2016-06-10] MEDS: METOPROLOL TARTRATE 25 MG TAB PO SCH ×2 (08:53→20:43)
[2016-06-10] MEDS: DOLUTEGRAVIR SODIUM 50 MG TAB PO SCH (08:53)
[2016-06-10] MEDS: SODIUM CHLORIDE 0.9% FLUSH 5 ML FLUSH FLUSH SCH ×2 (08:54→20:43)
[2016-06-10] MEDS: CHOLECALCIFEROL (VIT D3) 1000 UNIT TAB PO SCH (08:54)
--- NOTE | 2016-06-10 10:23 | HHI.PR ---
Subjective Remarks Follow up PE/DVT, hematuria. Still with mild chest pressure, improving. Dyspnea with activity. No nausea/vomiting. Bleeding has resolved. Objective Vitals Vital Signs Date Time Temp Pulse Resp B/P Pulse Ox O2 Delivery O2 Flow Rate FiO2 06/10/16 08:00 98.6 48 19 135/87 100 06/10/16 04:00 97.4 50 19 126/72 96 06/10/16 00:00 97.6 50 19 137/68 94 06/09/16 20:00 97.7 50 19 139/83 95 06/09/16 19:29 55 06/09/16 16:00 97.9 52 16 134/76 98 06/09/16 12:00 95.8 48 14 130/81 98 I/O 06/09/16 06/09/16 06/09/16 06/10/16 06/10/16 06/10/16 07:00 15:00 23:00 07:00 15:00 23:00 Intake Total 122 ml 840 ml 350 ml 345 ml Output Total 200 ml 800 ml 300 ml Balance -78 ml 40 ml 50 ml 345 ml Intake Oral 0 ml 840 ml 240 ml 240 ml IV Total 122 ml 110 ml 105 ml Output Urine Total 200 ml 800 ml 300 ml # Voids 1 # Bowel Movements 1 0 1 Result Diagram: 06/10/16 0439 06/10/16 0439 Imaging Last Impressions Abdomen/Pelvis CT 06/09/16 0000 Signed Impressions: Service Date/Time: Thursday, June 09, 2016 19:55 - CONCLUSION: 1. Small right-sided pleural effusion. Basilar atelectasis and scarring. 2. Multiple calcified gallstones in the gallbladder. 3. Mild anasarca. No bowel obstruction or free air. Trace free fluid. 4. No renal calculi or evidence for obstructive uropathy. No bladder calculi are seen. Chan Vieyra MD Chest X-Ray 06/05/16 0642 Signed Impressions: Service Date/Time: May 07:23 - CONCLUSION: No acute disease. Aniket Eric MD Lower Extremity Ultrasound 06/05/16 0000 Signed Impressions: Service Date/Time: May 18:57 - CONCLUSION: Bilateral lower extremity DVT as above. Aniket Turner MD CT Angiography 06/05/16 0000 Signed Impressions: Service Date/Time: May 08:38 - CONCLUSION: Extensive bilateral pulmonary embolism. Abdulaziz Woodson MD Objective Remarks General: No acute distress. Heart: Regular rate and rhythm. No murmur. Lungs: Clear to auscultation bilaterally. No wheezes, rales, or rhonchi. Breathing is nonlabored. Abdomen: Soft, nontender, nondistended. Extremities: 1+ bilateral lower extremity edema. Psych: Alert and oriented. Procedures 06/05/2016 Echocardiogram - Procedure narrative: Transthoracic echocardiography. Image quality was fair. Scanning was performed from the parasternal, apical, and subcostal acoustic windows. - Left ventricle: The cavity size was normal. Wall thickness was normal. Systolic function was normal. The estimated ejection fraction was in the range of 55% to 60%. Wall motion was normal; there were no regional wall motion abnormalities. - Right ventricle: The cavity size was moderately enlarged with moderately to severely reduced systolic function. - Tricuspid valve: Mild regurgitation with no definite evidence for pulmonary hypertension. Urinary Catheter: No Vascular Central Line Catheter: No A/P Problem List: (1) Bilateral pulmonary embolism ICD Code: I26.99 Status: Acute (2) Acute kidney injury ICD Code: N17.9 Status: Acute (3) Hypertension ICD Code: I10 Status: Chronic (4) HIV (human immunodeficiency virus infection) ICD Code: Z21 Status: Acute (5) DVT of lower extremity, bilateral ICD Code: I82.403 Status: Acute (6) Non-ST elevation [place] (NSTEMI) ICD Code: I21.4 Status: Acute (7) Hematuria ICD Code: R31.9 Status: Acute Assessment and Plan 1. Bilateral pulmonary embolism, bilateral lower extremity DVT: Continue Coumadin with heparin drip to bridge to therapeutic INR. 2. Non-ST elevation [place]: Cardiology was notified regarding increased troponin and recommended no further intervention at this time. 3. New onset atrial fibrillation: Continue metoprolol, statin, aspirin. 4. Acute kidney injury: Improved. 5. HIV: Patient takes HAART on a regular basis. [facility]. Last CD4 count was 900 per patient report. 6. Hypertension: Verapamil on hold secondary to hypotension upon presentation to the ER. 7. Gout: Does not appear to be an active flare. Allopurinol on hold. 8. Hematuria: UA showed moderate occult blood. H/H stable. Per discussion with hematology, will need to continue anticoagulation. Urology consult. 9. Small pleural effusion seen on CT: Will give a dose of Lasix. Mayito Cantu MD Jun 10, 2016 10:23
[2016-06-10] MEDS ORDERED: FUROSEMIDE 20 MG/2 ML VIAL IV PUSH ONE (11:15)
[2016-06-10 12:00] VITALS: BP 133/84; PULSE 53; RESP 18; TEMP 97.9; O2SAT 100
--- NOTE | 2016-06-10 13:15 | MB ---
cc: DAV WANG MD DATE OF CONSULTATION: 06/10/2016 REASON FOR CONSULTATION Gross hematuria. HISTORY OF PRESENT ILLNESS The patient is a 56-year-old -[place] male with a history of HIV who presented to the emergency department with worsening shortness of breath that initially started two months ago. He was found to have bilateral pulmonary embolisms and started on a heparin drip. However, he developed the acute onset of gross hematuria associated with clots and also complained of mild dysuria but denied urgency or frequency, fevers, chills, flank pain or abdominal pain. Denies prior episodes of blood in his urine in the past. He does smoke tobacco on a daily basis. He has mild LUTS including nocturia x3 and slightly weakened stream. Denies urinary incontinence. Denies history of kidney stones. Denies history of genitourinary malignancies. Denies history of urinary tract infections. The patient had a CT urogram done last night which showed normal upper tracts. Currently the patient feels better. He has not had any blood in his urine for the past 24 hours. His dysuria has also resolved as well. REVIEW OF SYSTEMS See HPI. All systems are reviewed and otherwise negative. PAST MEDICAL HISTORY 1. HIV. 2. Hypertension. 3. Gynecomastia. PAST SURGICAL HISTORY 1. Bilateral mastectomy. 2. Bunion removed from his feet. MEDICATIONS Home medications include: 1. Turmeric 500 mg p.o. daily. 2. Verapamil 180 mg p.o. daily. ALLERGIES No known drug allergies. FAMILY HISTORY Negative for urolithiasis. Negative for genitourinary malignancies. SOCIAL HISTORY He smokes about a pack per day for the last 20 years. Has occasional alcohol use but denies illicit drugs. He was in the [employer]. PHYSICAL EXAMINATION VITAL SIGNS: Temperature 97.9, pulse 53, respiratory rate 18, blood pressure 133/84, satting 100% on room air. GENERAL: He is alert and oriented x3. No apparent distress. A pleasant and cooperative gentleman who appears his stated age. HEAD: Normocephalic, atraumatic. NECK: Supple. Trachea is midline. EYES: No scleral icterus. Extraocular muscles intact. LUNGS: Clear to auscultation bilaterally. No wheezes or rales. HEART: Regular rhythm. ABDOMEN: Soft, nontender, nondistended. Positive bowel sounds. GENITOURINARY: Penis is circumcised. Testes are descended bilaterally, normal size and consistency without mass. EXTREMITIES: Nontender. No clubbing, cyanosis or edema. SKIN: No ulcers or rashes. PSYCHIATRIC: Normal affect. MUSCULOSKELETAL: Fill range of motion x4. Strength 5/5 x4. LABORATORY DATA White count 5.2, hemoglobin 11.7, hematocrit 32.9, platelet count 134. Sodium 143, chloride 108, bicarb 28, BUN 11, creatinine 1.20, glucose 98, calcium 8.2. Urine showed moderate blood, negative nitrite, negative leukocyte esterase. IMAGING CT urogram images were reviewed. Agree with the radiologist's report. He has normal kidneys and upper tracts with no evidence of stones, masses or hydronephrosis. Contrast is seen entering the bladder. ASSESSMENT The patient is a 56-year-old -[place] male with HIV currently on a heparin drip for bilateral pulmonary embolism with gross hematuria that is currently resolved. PLAN 1. His CT urogram is negative. 2. Recommend follow-up as outpatient for cystoscopy to complete the hematuria work-up as an outpatient. Thank you for this consult. Please call with any questions. Dav Wang MD EMMichele/BT /12:34 PM /12:52 PM
[2016-06-10] MEDS ORDERED: WARFARIN SOD 2.5 MG TAB PO SCH (16:00)
[2016-06-10] MEDS: WARFARIN SOD 5 MG TAB PO SCH (16:11)
[2016-06-10 19:57] VITALS: PULSE 48
[2016-06-10] MEDS: ATORVASTATIN 40 MG TAB PO SCH (20:43)
[2016-06-11] VITALS: BP 137/79; PULSE 87; RESP 19; TEMP 97.6; O2SAT 94
[2016-06-11] MEDS: ACETAMINOPHEN/HYDROcodone 325 MG/7.5 MG TAB PO PRN ×2 (02:24→22:59)
[2016-06-11 06:51] LABS: AUTOMATED NEUTROPHIL # 2.8 TH/MM3 (1.8-7.7); BASOPHIL # 0.1 TH/MM3 (0-0.2); EOSINOPHIL # 0.1 TH/MM3 (0-0.4); EOSINOPHIL % 2.3 % (0.0-4.0); HEMATOCRIT 34.8 % (39.0-51.0); HEMO FLAGS DIFF FINAL; LYMPH % 37.6 % (9.0-44.0); LYMPHOCYTE # 2.1 TH/MM3 (1.0-4.8); MEAN CELL VOLUME 103.7 FL (80.0-100.0); MEAN CORPUSCULAR HEMOGLOBIN 35.1 PG (27.0-34.0); MEAN CORPUSCULAR HGB CONC 33.8 % (32.0-36.0); MONO % 9.7 % (0.0-8.0); NEUT % 49.4 % (16.0-70.0); PLATELET COUNT 155 TH/MM3 (150-450); RED BLOOD COUNT 3.36 MIL/MM3 (4.50-5.90); RED CELL DISTRIBUTION WIDTH 14.9 % (11.6-17.2); WHITE BLOOD COUNT 5.6 TH/MM3 (4.0-11.0)
[2016-06-11 06:57] LABS: APTT (PATIENT) 46.1 SEC (24.3-30.1); INTERNATIONAL NORMALIZED RATIO 1.2 RATIO; PROTHROMBIN TIME - PATIENT 13.9 SEC (9.8-11.6)
[2016-06-11 07:16] LABS: BICARBONATE 25.7 MEQ/L (21.0-32.0); POTASSIUM 3.5 MEQ/L (3.5-5.1)
[2016-06-11 08:00] VITALS: BP 135/76; PULSE 52; RESP 19; TEMP 98.4; O2SAT 98
[2016-06-11] MEDS: METOPROLOL TARTRATE 25 MG TAB PO SCH ×2 (08:03→20:02)
[2016-06-11] MEDS: ASPIRIN EC 81 MG TABEC PO SCH (08:04)
[2016-06-11] MEDS: CHOLECALCIFEROL (VIT D3) 1000 UNIT TAB PO SCH (08:04)
[2016-06-11] MEDS: ABACAVIR SULFATE 300 MG TAB PO SCH (08:04)
[2016-06-11] MEDS: DOLUTEGRAVIR SODIUM 50 MG TAB PO SCH (08:04)
[2016-06-11] MEDS: SODIUM CHLORIDE 0.9% FLUSH 5 ML FLUSH FLUSH SCH ×2 (08:07→20:03)
[2016-06-11] MEDS: RESP: IPRATROPIUM 0.5 MG/2.5 ML NEB NEB PRN (08:35)
--- NOTE | 2016-06-11 09:36 | RADRPT ---
EXAM DATE/TIME: 06/11/2016 08:55 [facility] COMPARISON: CHEST SINGLE AP, June 05, 2016, 7:23. INDICATIONS : Dyspnea. Wheezing. MEDICAL HISTORY : Hypertension. HIV. SURGICAL HISTORY : None. ENCOUNTER: Initial ACUITY: 4 - 6 days PAIN SCORE: 2/10 LOCATION: Bilateral chest FINDINGS: A single view of the chest demonstrates the lungs to be symmetrically aerated without evidence of mas s, infiltrate or effusion. The cardiomediastinal contours reveal borderline cardiomegaly in view of the diminished inspiratory effort.. Osseous structures are intact. CONCLUSION: Stable chest. Poor inspiratory effort Justus Conway MD on June 11, 2016 at 9:33 Board Certified Radiologist. This report was verified electronically.
--- NOTE | 2016-06-11 10:38 | HHI.PR ---
Subjective Remarks Follow-up PE/DVT. The patient reports that he was more short of breath this morning, but symptoms improved with nebulizer treatment. 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 Objective Vitals Vital Signs Date Time Temp Pulse Resp B/P Pulse Ox O2 Delivery O2 Flow Rate FiO2 06/11/16 08:00 98.4 52 19 135/76 98 06/11/16 00:00 97.6 87 19 137/79 94 06/10/16 19:57 48 06/10/16 12:00 97.9 53 18 133/84 100 I/O 06/10/16 06/10/16 06/10/16 06/11/16 06/11/16 06/11/16 07:00 15:00 23:00 07:00 15:00 23:00 Intake Total 345 ml 720 ml 592 ml 345 ml Output Total 0 ml Balance 345 ml 720 ml 592 ml 345 ml Intake Oral 240 ml 720 ml 240 ml 240 ml IV Total 105 ml 352 ml 105 ml Output Urine Total 0 ml # Voids 1 5 2 2 # Bowel Movements 1 0 0 0 Result Diagram: 06/11/16 0551 06/11/16 0551 Imaging Last Impressions Chest X-Ray 06/11/16 0000 Signed Impressions: Service Date/Time: Saturday, June 11, 2016 08:55 - CONCLUSION: Stable chest. Poor inspiratory effort Justus Conway MD Abdomen/Pelvis CT 06/09/16 0000 Signed Impressions: Service Date/Time: Thursday, June 09, 2016 19:55 - CONCLUSION: 1. Small right-sided pleural effusion. Basilar atelectasis and scarring. 2. Multiple calcified gallstones in the gallbladder. 3. Mild anasarca. No bowel obstruction or free air. Trace free fluid. 4. No renal calculi or evidence for obstructive uropathy. No bladder calculi are seen. Chan Vieyra MD Lower Extremity Ultrasound 06/05/16 0000 Signed Impressions: Service Date/Time: May 18:57 - CONCLUSION: Bilateral lower extremity DVT as above. Aniket Turner MD CT Angiography 06/05/16 0000 Signed Impressions: Service Date/Time: May 08:38 - CONCLUSION: Extensive bilateral pulmonary embolism. Abdulaziz Woodson MD Objective Remarks General: No acute distress. Heart: Regular rate and rhythm. No murmur. Lungs: Clear to auscultation bilaterally. No wheezes, rales, or rhonchi. Breathing is nonlabored. Abdomen: Soft, nontender, nondistended. Extremities: 1+ left lower extremity edema. Trace right lower extremity edema. Psych: Alert and oriented. Procedures 06/05/2016 Echocardiogram - Procedure narrative: Transthoracic echocardiography. Image quality was fair. Scanning was performed from the parasternal, apical, and subcostal acoustic windows. - Left ventricle: The cavity size was normal. Wall thickness was normal. Systolic function was normal. The estimated ejection fraction was in the range of 55% to 60%. Wall motion was normal; there were no regional wall motion abnormalities. - Right ventricle: The cavity size was moderately enlarged with moderately to severely reduced systolic function. - Tricuspid valve: Mild regurgitation with no definite evidence for pulmonary hypertension. Urinary Catheter: No Vascular Central Line Catheter: No A/P Problem List: (1) Bilateral pulmonary embolism ICD Code: I26.99 Status: Acute (2) Acute kidney injury ICD Code: N17.9 Status: Acute (3) Hypertension ICD Code: I10 Status: Chronic (4) HIV (human immunodeficiency virus infection) ICD Code: Z21 Status: Acute (5) DVT of lower extremity, bilateral ICD Code: I82.403 Status: Acute (6) Non-ST elevation [place] (NSTEMI) ICD Code: I21.4 Status: Acute (7) Hematuria ICD Code: R31.9 Status: Acute Assessment and Plan 1. Bilateral pulmonary embolism, bilateral lower extremity DVT: Continue Coumadin with heparin drip to bridge to therapeutic INR. Discussed with hematology. 2. Non-ST elevation [place]: Cardiology was notified regarding increased troponin and recommended no further intervention at this time. 3. New onset atrial fibrillation: Continue metoprolol, statin, aspirin. 4. Acute kidney injury: Improved. 5. HIV: Patient takes HAART on a regular basis. [facility]. Last CD4 count was 900 per patient report. 6. Hypertension: Verapamil on hold secondary to hypotension upon presentation to the ER. 7. Gout: Does not appear to be an active flare. Allopurinol on hold. 8. Hematuria: UA showed moderate occult blood. H/H stable. Appreciate Urology recommendations. 9. Small pleural effusion seen on CT: Received one dose of Lasix. 10. Lower extremity edema: Improved after Lasix dose. Mayito Cantu MD Jun 11, 2016 10:38
--- NOTE | 2016-06-11 11:17 | PD.ONC.PN ---
Subjective Subjective Remarks Afebrile overnight. Pt getting back in bed just after taking a shower. He states his chest pain and SOB have improved. He has not had any more blood in his urine. Objective Data Date Time Temp Pulse Resp B/P Pulse Ox O2 Delivery O2 Flow Rate FiO2 06/11/16 08:00 98.4 52 19 135/76 98 06/11/16 00:00 97.6 87 19 137/79 94 06/10/16 19:57 48 06/10/16 12:00 97.9 53 18 133/84 100 06/11/16 06/11/16 06/11/16 07:00 15:00 23:00 Intake Total 345 ml Output Total 0 ml Balance 345 ml Result Diagram: 06/11/16 0551 06/11/16 0551 Laboratory Results Laboratory Tests Test 06/11/16 05:51 White Blood Count 5.6 TH/MM3 Red Blood Count 3.36 MIL/MM3 Hemoglobin 11.8 GM/DL Hematocrit 34.8 % Mean Corpuscular Volume 103.7 FL Mean Corpuscular Hemoglobin 35.1 PG Mean Corpuscular Hemoglobin 33.8 % Concent Red Cell Distribution Width 14.9 % Platelet Count 155 TH/MM3 Mean Platelet Volume 8.4 FL Neutrophils (%) (Auto) 49.4 % Lymphocytes (%) (Auto) 37.6 % Monocytes (%) (Auto) 9.7 % Eosinophils (%) (Auto) 2.3 % Basophils (%) (Auto) 1.0 % Neutrophils # (Auto) 2.8 TH/MM3 Lymphocytes # (Auto) 2.1 TH/MM3 Monocytes # (Auto) 0.5 TH/MM3 Eosinophils # (Auto) 0.1 TH/MM3 Basophils # (Auto) 0.1 TH/MM3 CBC Comment DIFF FINAL Differential Comment Prothrombin Time 13.9 SEC Prothromb Time International 1.2 RATIO Ratio Activated Partial 46.1 SEC Thromboplast Time Sodium Level 142 MEQ/L Potassium Level 3.5 MEQ/L Chloride Level 107 MEQ/L Carbon Dioxide Level 25.7 MEQ/L Anion Gap 9 MEQ/L Blood Urea Nitrogen 9 MG/DL Creatinine 1.23 MG/DL Estimat Glomerular Filtration 73 ML/MIN Rate Random Glucose 100 MG/DL Calcium Level 8.3 MG/DL Imaging Studies Last 24 hours Impressions Chest X-Ray 06/11/16 0000 Signed Impressions: Service Date/Time: Saturday, June 11, 2016 08:55 - CONCLUSION: Stable chest. Poor inspiratory effort Justus Conway MD Administered Medications Medications (Trade) Dose Ordered Sig/Pranav Route PRN Reason Start Time Stop Time Status Last Admin Dose Admin IV Flush 2 ml 2 ml BID FLUSH 06/05/16 21:00 06/10/16 20:43 Heparin Sodium/ Dextrose (Heparin-D5W Inj) 250 ml @ 0 mls/hr TITRATE IV 06/05/16 10:45 06/09/16 03:27 Cholecalciferol (Vitamin D3) 1,000 units DAILY PO 06/06/16 09:00 06/11/16 08:04 Abacavir Sulfate (Ziagen) 600 mg DAILY PO 06/06/16 09:00 06/11/16 08:04 Lamivudine (Epivir) 300 mg DAILY PO 06/06/16 09:00 06/11/16 08:04 Miscellaneous Information Patient in critical care unit? Ass... Q361D XX 06/05/16 21:00 06/05/16 20:56 Nitroglycerin (Nitroglycerin 2% Oint) 1 inch Q8HR PRN TOPICAL Chest pain 06/06/16 13:00 06/06/16 13:04 Metoprolol Tartrate (Lopressor) 25 mg Q12HR PO 06/06/16 21:00 06/11/16 08:03 Atorvastatin Calcium (Lipitor) 40 mg HS PO 06/06/16 21:00 06/10/16 20:43 Aspirin (Ecotrin Ec) 81 mg DAILY PO 06/07/16 09:00 06/11/16 08:04 Allopurinol (Zyloprim) 100 mg BID PO 06/07/16 09:00 Hold 06/08/16 09:41 Acetaminophen/ Hydrocodone Bitart ([place] 7.5-325 Mg) 1 tab Q6H PRN PO PAIN SCALE 5 TO 10 06/07/16 08:00 06/11/16 02:24 Warfarin Sodium (Coumadin) 5 mg DAILY@1600 PO 06/07/16 16:00 06/10/16 16:11 Objective Remarks GENERAL: Middle-aged male sitting up at bedside in no distress. SKIN: Warm and dry. HEAD: Normocephalic. EYES: No injection or drainage. NECK: Supple, trachea midline. CARDIOVASCULAR: +S1/S2. No murmur appreciated. RESPIRATORY: Breath sounds equal bilaterally. No accessory muscle use. GASTROINTESTINAL: Abdomen soft, non-tender, nondistended. EXTREMITIES: No cyanosis, or edema. NEUROLOGICAL: No obvious focal deficit. Awake, alert, and oriented x3. Assessment/Plan Problem List: (1) Bilateral pulmonary embolism Status: Acute Plan: on heparin bridge to coumadin -- He is not a good candidate for factor X agents due to his kidney function. 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 (2) HIV (human immunodeficiency virus infection) Status: Acute Plan: --On HAART therapy. Assessment 56-year-old male presented to the emergency room after calling an ambulance for severe shortness of breath and chest pain. Plan 1. Pharmacy dosing coumadin 2. Continue bridge from heparin 3. Hypercoagulable workup positive for MTHFR gene. Will add on folic acid and B12 complex. 4. Daily PT/INR. Shannon Lozada Jun 11, 2016 11:16
[2016-06-11 12:00] VITALS: BP 133/78; PULSE 56; RESP 18; TEMP 98.4; O2SAT 99
[2016-06-11] MEDS: FOLIC ACID 1 MG TAB PO SCH (13:07)
[2016-06-11] MEDS: CYANOCOBALAMIN 1,000 MCG TAB PO SCH (13:07)
[2016-06-11] MEDS: HEPARIN-D5W INJ 250 ML IV SCH (15:49)
[2016-06-11] MEDS: WARFARIN SOD 5 MG TAB PO SCH (15:51)
[2016-06-11 16:00] VITALS: BP 136/75; PULSE 54; RESP 18; TEMP 97.6; O2SAT 99
[2016-06-11] MEDS ORDERED: WARFARIN SOD 2.5 MG TAB PO SCH (16:00)
[2016-06-11 20:00] VITALS: BP 163/91; PULSE 47; RESP 16; TEMP 97.3; O2SAT 97
[2016-06-11] MEDS: ATORVASTATIN 40 MG TAB PO SCH (20:02)
[2016-06-12] VITALS: BP 159/93; PULSE 47; RESP 16; TEMP 97; O2SAT 98
[2016-06-12 04:00] VITALS: BP 129/79; PULSE 65; RESP 24; TEMP 97.9; O2SAT 97
[2016-06-12] MEDS: RESP: IPRATROPIUM 0.5 MG/2.5 ML NEB NEB PRN (05:02)
[2016-06-12 05:25] LABS: AUTOMATED NEUTROPHIL # 2.4 TH/MM3 (1.8-7.7); BASOPHIL % 0.9 % (0.0-2.0); EOSINOPHIL # 0.2 TH/MM3 (0-0.4); EOSINOPHIL % 3.4 % (0.0-4.0); HEMATOCRIT 34.8 % (39.0-51.0); HEMO FLAGS DIFF FINAL; LYMPH % 40.3 % (9.0-44.0); LYMPHOCYTE # 2.1 TH/MM3 (1.0-4.8); MEAN CELL VOLUME 103.3 FL (80.0-100.0); MEAN CORPUSCULAR HEMOGLOBIN 35.4 PG (27.0-34.0); MEAN CORPUSCULAR HGB CONC 34.2 % (32.0-36.0); MONO % 10.2 % (0.0-8.0); NEUT % 45.2 % (16.0-70.0); PLATELET COUNT 169 TH/MM3 (150-450); RED BLOOD COUNT 3.37 MIL/MM3 (4.50-5.90); RED CELL DISTRIBUTION WIDTH 14.5 % (11.6-17.2); WHITE BLOOD COUNT 5.3 TH/MM3 (4.0-11.0)
[2016-06-12 05:32] LABS: INTERNATIONAL NORMALIZED RATIO 1.5 RATIO; PROTHROMBIN TIME - PATIENT 16.3 SEC (9.8-11.6)
[2016-06-12 08:00] VITALS: BP 161/76; PULSE 43; RESP 17; TEMP 97; O2SAT 97
[2016-06-12] MEDS ORDERED: diphenhydrAMINE HCL 50 MG/ML VIAL IV PUSH ONE (08:00)
[2016-06-12] MEDS: CYANOCOBALAMIN 1,000 MCG TAB PO SCH (08:07)
[2016-06-12] MEDS: FOLIC ACID 1 MG TAB PO SCH (08:07)
[2016-06-12] MEDS: CHOLECALCIFEROL (VIT D3) 1000 UNIT TAB PO SCH (08:07)
[2016-06-12] MEDS: DOLUTEGRAVIR SODIUM 50 MG TAB PO SCH (08:07)
[2016-06-12] MEDS: SODIUM CHLORIDE 0.9% FLUSH 5 ML FLUSH FLUSH SCH ×2 (08:07→20:20)
[2016-06-12] MEDS: METOPROLOL TARTRATE 25 MG TAB PO SCH ×2 (08:07→20:20)
[2016-06-12] MEDS: ASPIRIN EC 81 MG TABEC PO SCH (08:07)
[2016-06-12] MEDS: ABACAVIR SULFATE 300 MG TAB PO SCH (08:07)
[2016-06-12] MEDS: HEPARIN-D5W INJ 250 ML IV SCH (09:49)
--- NOTE | 2016-06-12 11:46 | HHI.PR ---
Subjective Remarks Follow up PE, anticoagulation. Patient reported that his throat felt tight this morning. It improved after one dose of Benadryl and drinking cold water. No shortness of breath or chest pain at this time. Objective Vitals Vital Signs Date Time Temp Pulse Resp B/P Pulse Ox O2 Delivery O2 Flow Rate FiO2 06/12/16 08:00 97.0 43 17 161/76 97 06/12/16 04:00 97.9 65 24 129/79 97 06/12/16 00:00 97.0 47 16 159/93 98 06/11/16 23:59 16 06/11/16 20:00 97.3 47 16 163/91 97 06/11/16 16:00 97.6 54 18 136/75 99 06/11/16 12:00 98.4 56 18 133/78 99 I/O 06/11/16 06/11/16 06/11/16 06/12/16 06/12/16 06/12/16 07:00 15:00 23:00 07:00 15:00 23:00 Intake Total 345 ml 530 ml 240 ml 480 ml Output Total 0 ml 200 ml Balance 345 ml 330 ml 240 ml 480 ml Intake Oral 240 ml 240 ml 240 ml 240 ml IV Total 105 ml 240 ml Other 290 ml Output Urine Total 0 ml 200 ml # Voids 2 1 1 # Bowel Movements 0 0 0 Result Diagram: 06/12/16 0452 06/11/16 0551 Imaging Last Impressions Chest X-Ray 06/11/16 0000 Signed Impressions: Service Date/Time: Saturday, June 11, 2016 08:55 - CONCLUSION: Stable chest. Poor inspiratory effort Justus Conway MD Abdomen/Pelvis CT 06/09/16 0000 Signed Impressions: Service Date/Time: Thursday, June 09, 2016 19:55 - CONCLUSION: 1. Small right-sided pleural effusion. Basilar atelectasis and scarring. 2. Multiple calcified gallstones in the gallbladder. 3. Mild anasarca. No bowel obstruction or free air. Trace free fluid. 4. No renal calculi or evidence for obstructive uropathy. No bladder calculi are seen. Chan Vieyra MD Lower Extremity Ultrasound 06/05/16 0000 Signed Impressions: Service Date/Time: May 18:57 - CONCLUSION: Bilateral lower extremity DVT as above. Aniket Turner MD CT Angiography 06/05/16 0000 Signed Impressions: Service Date/Time: May 08:38 - CONCLUSION: Extensive bilateral pulmonary embolism. Abdulaziz Woodson MD Objective Remarks General: No acute distress. Heart: Regular rate and rhythm. No murmur. Lungs: Clear to auscultation bilaterally. No wheezes, rales, or rhonchi. Breathing is nonlabored. Abdomen: Soft, nontender, nondistended. Extremities: 1+ left lower extremity edema. Trace right lower extremity edema. Psych: Alert and oriented. Procedures 06/05/2016 Echocardiogram - Procedure narrative: Transthoracic echocardiography. Image quality was fair. Scanning was performed from the parasternal, apical, and subcostal acoustic windows. - Left ventricle: The cavity size was normal. Wall thickness was normal. Systolic function was normal. The estimated ejection fraction was in the range of 55% to 60%. Wall motion was normal; there were no regional wall motion abnormalities. - Right ventricle: The cavity size was moderately enlarged with moderately to severely reduced systolic function. - Tricuspid valve: Mild regurgitation with no definite evidence for pulmonary hypertension. Urinary Catheter: No Vascular Central Line Catheter: No A/P Problem List: (1) Bilateral pulmonary embolism ICD Code: I26.99 Status: Acute (2) Acute kidney injury ICD Code: N17.9 Status: Acute (3) Hypertension ICD Code: I10 Status: Chronic (4) HIV (human immunodeficiency virus infection) ICD Code: Z21 Status: Acute (5) DVT of lower extremity, bilateral ICD Code: I82.403 Status: Acute (6) Non-ST elevation [place] (NSTEMI) ICD Code: I21.4 Status: Acute (7) Hematuria ICD Code: R31.9 Status: Acute Assessment and Plan 1. Bilateral pulmonary embolism, bilateral lower extremity DVT: Continue Coumadin with heparin drip to bridge to therapeutic INR. INR is 1.5 today. Pharmacy to dose Coumadin. 2. Non-ST elevation [place]: Cardiology was notified regarding increased troponin and recommended no further intervention at this time. 3. New onset atrial fibrillation: Continue metoprolol, statin, aspirin. 4. Acute kidney injury: Improved. 5. HIV: Patient takes HAART on a regular basis. [facility]. Last CD4 count was 900 per patient report. 6. Hypertension: Verapamil on hold secondary to hypotension upon presentation to the ER. 7. Gout: Does not appear to be an active flare. Allopurinol on hold. 8. Hematuria: UA showed moderate occult blood. H/H stable. Appreciate Urology recommendations. 9. Small pleural effusion seen on CT: Received one dose of Lasix. 10. Lower extremity edema: Improved after Lasix dose. Mayito Cantu MD Jun 12, 2016 11:46
[2016-06-12 12:00] VITALS: BP 137/74; PULSE 73; RESP 16; TEMP 97.5; O2SAT 97
[2016-06-12] MEDS: WARFARIN SOD 5 MG TAB PO SCH (15:19)
[2016-06-12 16:00] VITALS: BP 158/93; PULSE 47; RESP 17; TEMP 96.1; O2SAT 97
[2016-06-12] MEDS ORDERED: WARFARIN SOD 2.5 MG TAB PO SCH (16:00)
[2016-06-12 20:00] VITALS: BP 189/95; PULSE 47; RESP 22; TEMP 97.5; O2SAT 98
[2016-06-12] MEDS: ATORVASTATIN 40 MG TAB PO SCH (20:19)
[2016-06-12] MEDS: ACETAMINOPHEN/HYDROcodone 325 MG/7.5 MG TAB PO PRN (23:37)
[2016-06-13] VITALS (8 sets, daily range): BP systolic 143–188; BP diastolic 69–87; PULSE 40–49; RESP 16–20; TEMP 96.8–98.7; O2SAT 94–99
[2016-06-13] MEDS: ENALAPRILAT 2.5 MG/2 ML VIAL IV PUSH PRN ×2 (00:08→08:38)
[2016-06-13] MEDS: HEPARIN-D5W INJ 250 ML IV SCH (04:08)
[2016-06-13 06:14] LABS: AUTOMATED NEUTROPHIL # 2.3 TH/MM3 (1.8-7.7); BASOPHIL % 0.9 % (0.0-2.0); EOSINOPHIL # 0.1 TH/MM3 (0-0.4); EOSINOPHIL % 2.4 % (0.0-4.0); HEMO FLAGS DIFF FINAL; LYMPH % 42.6 % (9.0-44.0); LYMPHOCYTE # 2.3 TH/MM3 (1.0-4.8); MEAN CORPUSCULAR HEMOGLOBIN 35.3 PG (27.0-34.0); MEAN CORPUSCULAR HGB CONC 34.6 % (32.0-36.0); MONO % 12.1 % (0.0-8.0); PLATELET COUNT 172 TH/MM3 (150-450); RED BLOOD COUNT 3.43 MIL/MM3 (4.50-5.90); RED CELL DISTRIBUTION WIDTH 14.8 % (11.6-17.2); WHITE BLOOD COUNT 5.5 TH/MM3 (4.0-11.0)
[2016-06-13 06:26] LABS: APTT (PATIENT) 56.2 SEC (24.3-30.1); INTERNATIONAL NORMALIZED RATIO 1.8 RATIO; PROTHROMBIN TIME - PATIENT 20.8 SEC (9.8-11.6)
[2016-06-13] MEDS: SODIUM CHLORIDE 0.9% FLUSH 5 ML FLUSH FLUSH SCH ×2 (08:31→20:39)
[2016-06-13] MEDS: DOLUTEGRAVIR SODIUM 50 MG TAB PO SCH (08:32)
[2016-06-13] MEDS: ASPIRIN EC 81 MG TABEC PO SCH (08:32)
[2016-06-13] MEDS: FOLIC ACID 1 MG TAB PO SCH (08:32)
[2016-06-13] MEDS: ABACAVIR SULFATE 300 MG TAB PO SCH (08:32)
[2016-06-13] MEDS: CYANOCOBALAMIN 1,000 MCG TAB PO SCH (08:33)
[2016-06-13] MEDS: CHOLECALCIFEROL (VIT D3) 1000 UNIT TAB PO SCH (08:35)
[2016-06-13] MEDS: METOPROLOL TARTRATE 25 MG TAB PO SCH ×2 (08:35→20:39)
--- NOTE | 2016-06-13 09:48 | HHI.PR ---
Subjective Remarks Follow up PE/DVT, anticoagulation. The patient is again reporting dyspnea, tightness in his throat. Improved after nebulizer treatment. No chest pain. Objective Vitals Vital Signs Date Time Temp Pulse Resp B/P Pulse Ox O2 Delivery O2 Flow Rate FiO2 06/13/16 08:00 98.7 42 16 171/87 95 06/13/16 03:56 97.7 46 20 143/69 95 06/13/16 01:30 156/84 06/13/16 00:37 16 06/13/16 00:00 97.8 46 20 179/81 96 06/12/16 20:00 97.5 47 22 189/95 98 06/12/16 16:00 96.1 47 17 158/93 97 06/12/16 12:00 97.5 73 16 137/74 97 I/O 06/12/16 06/12/16 06/12/16 06/13/16 06/13/16 06/13/16 07:00 15:00 23:00 07:00 15:00 23:00 Intake Total 480 ml 126 ml 1860 ml 240 ml Balance 480 ml 126 ml 1860 ml 240 ml Intake Oral 240 ml 1680 ml 240 ml IV Total 240 ml 180 ml Other 126 ml # Voids 1 6 3 # Bowel Movements 0 0 0 Result Diagram: 06/13/16 0531 06/11/16 0551 Imaging Last Impressions Chest X-Ray 06/11/16 0000 Signed Impressions: Service Date/Time: Saturday, June 11, 2016 08:55 - CONCLUSION: Stable chest. Poor inspiratory effort Justus Conway MD Abdomen/Pelvis CT 06/09/16 0000 Signed Impressions: Service Date/Time: Thursday, June 09, 2016 19:55 - CONCLUSION: 1. Small right-sided pleural effusion. Basilar atelectasis and scarring. 2. Multiple calcified gallstones in the gallbladder. 3. Mild anasarca. No bowel obstruction or free air. Trace free fluid. 4. No renal calculi or evidence for obstructive uropathy. No bladder calculi are seen. Chan Vieyra MD Lower Extremity Ultrasound 06/05/16 0000 Signed Impressions: Service Date/Time: May 18:57 - CONCLUSION: Bilateral lower extremity DVT as above. Aniket Turner MD CT Angiography 06/05/16 0000 Signed Impressions: Service Date/Time: May 08:38 - CONCLUSION: Extensive bilateral pulmonary embolism. Abdulaziz Woodson MD Objective Remarks General: No acute distress. Heart: Regular rate and rhythm. No murmur. Lungs: Clear to auscultation bilaterally. No wheezes, rales, or rhonchi. Breathing is nonlabored. Abdomen: Soft, nontender, nondistended. Extremities: Trace bilateral lower extremity edema. Psych: Alert and oriented. Procedures 06/05/2016 Echocardiogram - Procedure narrative: Transthoracic echocardiography. Image quality was fair. Scanning was performed from the parasternal, apical, and subcostal acoustic windows. - Left ventricle: The cavity size was normal. Wall thickness was normal. Systolic function was normal. The estimated ejection fraction was in the range of 55% to 60%. Wall motion was normal; there were no regional wall motion abnormalities. - Right ventricle: The cavity size was moderately enlarged with moderately to severely reduced systolic function. - Tricuspid valve: Mild regurgitation with no definite evidence for pulmonary hypertension. Urinary Catheter: No Vascular Central Line Catheter: No A/P Problem List: (1) Bilateral pulmonary embolism ICD Code: I26.99 Status: Acute (2) Acute kidney injury ICD Code: N17.9 Status: Acute (3) Hypertension ICD Code: I10 Status: Chronic (4) HIV (human immunodeficiency virus infection) ICD Code: Z21 Status: Acute (5) DVT of lower extremity, bilateral ICD Code: I82.403 Status: Acute (6) Non-ST elevation CT (NSTEMI) ICD Code: I21.4 Status: Acute (7) Hematuria ICD Code: R31.9 Status: Acute Assessment and Plan 1. Bilateral pulmonary embolism, bilateral lower extremity DVT: Continue Coumadin with heparin drip to bridge to therapeutic INR. INR is 1.8 today. Pharmacy to dose Coumadin. Discussed with hematology. 2. Non-ST elevation CT: Cardiology was notified regarding increased troponin and recommended no further intervention at this time. 3. New onset atrial fibrillation: Continue metoprolol, statin, aspirin. 4. Acute kidney injury: Improved. 5. HIV: Patient takes HAART on a regular basis. [facility]. Last CD4 count was 900 per patient report. 6. Hypertension: Verapamil on hold secondary to hypotension upon presentation to the ER. 7. Gout: Does not appear to be an active flare. Allopurinol on hold. 8. Hematuria: UA showed moderate occult blood. H/H stable. Appreciate Urology recommendations. 9. Small pleural effusion seen on CT: Received one dose of Lasix. 10. Lower extremity edema: Improved after Lasix dose. 11. Dyspnea: ?etiology. May be anxiety related. Ativan as needed. Discharge Planning Discharge home when INR is therapeutic. Mayito Cantu MD Jun 13, 2016 09:47
[2016-06-13] MEDS: RESP: IPRATROPIUM 0.5 MG/2.5 ML NEB NEB PRN (10:05)
[2016-06-13] MEDS: LORazepam 0.5 MG TAB PO PRN ×2 (10:40→23:12)
--- NOTE | 2016-06-13 13:13 | PD.ONC.PN ---
Subjective Subjective Remarks Afebrile overnight. Pt has no complaints. He mentions Dr. Cantu gave him something for anxiety that he states helped him breathe better. He is asking when he will be discharged. Objective Data Date Time Temp Pulse Resp B/P Pulse Ox O2 Delivery O2 Flow Rate FiO2 06/13/16 12:00 96.8 40 17 161/85 96 06/13/16 08:03 40 06/13/16 08:00 98.7 42 16 171/87 95 06/13/16 03:56 97.7 46 20 143/69 95 06/13/16 01:30 156/84 06/13/16 00:37 16 06/13/16 00:00 97.8 46 20 179/81 96 06/12/16 20:00 97.5 47 22 189/95 98 06/12/16 16:00 96.1 47 17 158/93 97 06/13/16 06/13/16 06/13/16 07:00 15:00 23:00 Intake Total 240 ml Balance 240 ml Result Diagram: 06/13/16 0531 06/11/16 0551 Laboratory Results Laboratory Tests Test 06/13/16 05:31 White Blood Count 5.5 TH/MM3 Red Blood Count 3.43 MIL/MM3 Hemoglobin 12.1 GM/DL Hematocrit 35.0 % Mean Corpuscular Volume 102.0 FL Mean Corpuscular Hemoglobin 35.3 PG Mean Corpuscular Hemoglobin 34.6 % Concent Red Cell Distribution Width 14.8 % Platelet Count 172 TH/MM3 Mean Platelet Volume 8.4 FL Neutrophils (%) (Auto) 42.0 % Lymphocytes (%) (Auto) 42.6 % Monocytes (%) (Auto) 12.1 % Eosinophils (%) (Auto) 2.4 % Basophils (%) (Auto) 0.9 % Neutrophils # (Auto) 2.3 TH/MM3 Lymphocytes # (Auto) 2.3 TH/MM3 Monocytes # (Auto) 0.7 TH/MM3 Eosinophils # (Auto) 0.1 TH/MM3 Basophils # (Auto) 0.0 TH/MM3 CBC Comment DIFF FINAL Differential Comment Prothrombin Time 20.8 SEC Prothromb Time International 1.8 RATIO Ratio Activated Partial 56.2 SEC Thromboplast Time Imaging Studies Last Impressions Chest X-Ray 06/11/16 0000 Signed Impressions: Service Date/Time: Saturday, June 11, 2016 08:55 - CONCLUSION: Stable chest. Poor inspiratory effort Justus Conway MD Abdomen/Pelvis CT 06/09/16 0000 Signed Impressions: Service Date/Time: Thursday, June 09, 2016 19:55 - CONCLUSION: 1. Small right-sided pleural effusion. Basilar atelectasis and scarring. 2. Multiple calcified gallstones in the gallbladder. 3. Mild anasarca. No bowel obstruction or free air. Trace free fluid. 4. No renal calculi or evidence for obstructive uropathy. No bladder calculi are seen. Chan Vieyra MD Lower Extremity Ultrasound 06/05/16 0000 Signed Impressions: Service Date/Time: May 18:57 - CONCLUSION: Bilateral lower extremity DVT as above. Aniket Turner MD CT Angiography 06/05/16 0000 Signed Impressions: Service Date/Time: May 08:38 - CONCLUSION: Extensive bilateral pulmonary embolism. Abdulaziz Woodson MD Administered Medications Medications (Trade) Dose Ordered Sig/Pranav Route PRN Reason Start Time Stop Time Status Last Admin Dose Admin IV Flush 2 ml 2 ml BID FLUSH 06/05/16 21:00 06/13/16 08:31 Heparin Sodium/ Dextrose (Heparin-D5W Inj) 250 ml @ 0 mls/hr TITRATE IV 06/05/16 10:45 06/13/16 04:08 Cholecalciferol (Vitamin D3) 1,000 units DAILY PO 06/06/16 09:00 06/13/16 08:35 Abacavir Sulfate (Ziagen) 600 mg DAILY PO 06/06/16 09:00 06/13/16 08:32 Lamivudine (Epivir) 300 mg DAILY PO 06/06/16 09:00 06/13/16 08:32 Miscellaneous Information Patient in critical care unit? Ass... Q361D XX 06/05/16 21:00 06/05/16 20:56 Nitroglycerin (Nitroglycerin 2% Oint) 1 inch Q8HR PRN TOPICAL Chest pain 06/06/16 13:00 06/06/16 13:04 Metoprolol Tartrate (Lopressor) 25 mg Q12HR PO 06/06/16 21:00 06/12/16 20:20 Atorvastatin Calcium (Lipitor) 40 mg HS PO 06/06/16 21:00 06/12/16 20:19 Aspirin (Ecotrin Ec) 81 mg DAILY PO 06/07/16 09:00 06/13/16 08:32 Allopurinol (Zyloprim) 100 mg BID PO 06/07/16 09:00 Hold 06/08/16 09:41 Acetaminophen/ Hydrocodone Bitart ([place] 7.5-325 Mg) 1 tab Q6H PRN PO PAIN SCALE 5 TO 10 06/07/16 08:00 06/12/16 23:37 Warfarin Sodium (Coumadin) 5 mg DAILY@1600 PO 06/07/16 16:00 06/12/16 15:19 Folic Acid (Folate) 1 mg DAILY PO 06/11/16 11:45 06/13/16 08:32 Cyanocobalamin (Vitamin B12) 1,000 mcg DAILY PO 06/11/16 11:45 06/13/16 08:33 Lorazepam (Ativan) 0.5 mg Q8H PRN PO ANXIETY 06/12/16 08:00 06/13/16 10:40 Enalaprilat (Vasotec Inj) 2.5 mg Q6H PRN IV PUSH SEE LABEL COMMENTS 06/13/16 00:15 06/13/16 08:38 Objective Remarks GENERAL: Middle aged male, sitting up in bed watching TV in no distress. SKIN: Warm and dry. HEAD: Normocephalic. EYES: No injection or drainage. NECK: Supple, trachea midline. CARDIOVASCULAR: +S1/S2. No murmur appreciated. RESPIRATORY: Lungs clear throughout. Breathing easy and unlabored. GASTROINTESTINAL: Abdomen soft, non-tender, nondistended. EXTREMITIES: No edema. MUSCULOSKELETAL: Adequate muscle tone. NEUROLOGICAL: No obvious focal deficit. Awake, alert, and oriented x3. Normal speech. Assessment/Plan Problem List: (1) Bilateral pulmonary embolism Status: Acute Plan: on heparin bridge to coumadin. -- Hypercoagulable workup positive for homozygous [id number] variant. (2) HIV (human immunodeficiency virus infection) Status: Acute Plan: --On HAART therapy. Assessment 56-year-old male presented to the emergency room after calling an ambulance for severe shortness of breath and chest pain. Plan 1. Discussed with patient results from hypercoagulable workup. 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 2. Continue Heparin bridge to Coumadin. 3. Continue folic acid/ B12 complex. 4. Daily PT/INR; discontinue heparin gtt once INR >2. 5. Pt can be discharged and followup with Dr. Knutson once he is off heparin. Shannon Lozada Jun 13, 2016 13:13
[2016-06-13] MEDS: WARFARIN SOD 5 MG TAB PO SCH (16:55)
[2016-06-13] MEDS: ATORVASTATIN 40 MG TAB PO SCH (20:39)
[2016-06-13] MEDS: ACETAMINOPHEN/HYDROcodone 325 MG/7.5 MG TAB PO PRN (23:12)
[2016-06-14] VITALS (8 sets, daily range): BP systolic 141–181; BP diastolic 80–90; PULSE 41–48; RESP 16–20; TEMP 95.9–98.5; O2SAT 95–98
[2016-06-14] MEDS: HEPARIN-D5W INJ 250 ML IV SCH ×2 (00:48→13:44)
[2016-06-14 05:39] LABS: APTT (PATIENT) 68.8 SEC (24.3-30.1); INTERNATIONAL NORMALIZED RATIO 1.9 RATIO; PROTHROMBIN TIME - PATIENT 21.6 SEC (9.8-11.6)
[2016-06-14 06:02] LABS: HEMATOCRIT 36.3 % (39.0-51.0); MEAN CELL VOLUME 102.3 FL (80.0-100.0); MEAN CORPUSCULAR HEMOGLOBIN 35.4 PG (27.0-34.0); MEAN CORPUSCULAR HGB CONC 34.6 % (32.0-36.0); PLATELET COUNT 195 TH/MM3 (150-450); RED BLOOD COUNT 3.54 MIL/MM3 (4.50-5.90); RED CELL DISTRIBUTION WIDTH 14.7 % (11.6-17.2); REVIEW FLAG FINAL; WHITE BLOOD COUNT 6.6 TH/MM3 (4.0-11.0)
[2016-06-14] MEDS: SODIUM CHLORIDE 0.9% FLUSH 5 ML FLUSH FLUSH SCH ×2 (09:00→20:40)
[2016-06-14] MEDS: DOLUTEGRAVIR SODIUM 50 MG TAB PO SCH (09:22)
[2016-06-14] MEDS: ASPIRIN EC 81 MG TABEC PO SCH (09:22)
[2016-06-14] MEDS: METOPROLOL TARTRATE 25 MG TAB PO SCH ×2 (09:22→20:40)
[2016-06-14] MEDS: ABACAVIR SULFATE 300 MG TAB PO SCH (09:22)
[2016-06-14] MEDS: FOLIC ACID 1 MG TAB PO SCH (09:22)
[2016-06-14] MEDS: CYANOCOBALAMIN 1,000 MCG TAB PO SCH (09:23)
[2016-06-14] MEDS: CHOLECALCIFEROL (VIT D3) 1000 UNIT TAB PO SCH (09:23)
--- NOTE | 2016-06-14 11:07 | PD.ONC.PN ---
Subjective Subjective Remarks Afebrile overnight. Patient resting comfortably without complaint. He is eager to go home, when possible. Objective Data Date Time Temp Pulse Resp B/P Pulse Ox O2 Delivery O2 Flow Rate FiO2 06/14/16 08:00 97.2 48 16 141/82 98 06/14/16 04:00 97.7 45 20 181/81 95 06/14/16 00:00 98.5 48 20 176/83 98 06/13/16 20:00 96.9 49 20 188/85 99 06/13/16 16:00 97.5 47 16 159/71 94 06/13/16 12:00 96.8 40 17 161/85 96 06/14/16 06/14/16 06/14/16 07:00 15:00 23:00 Intake Total 480 ml Balance 480 ml Result Diagram: 06/14/16 0429 06/11/16 0551 Laboratory Results Laboratory Tests Test 06/14/16 04:29 White Blood Count 6.6 TH/MM3 Red Blood Count 3.54 MIL/MM3 Hemoglobin 12.5 GM/DL Hematocrit 36.3 % Mean Corpuscular Volume 102.3 FL Mean Corpuscular Hemoglobin 35.4 PG Mean Corpuscular Hemoglobin 34.6 % Concent Red Cell Distribution Width 14.7 % Platelet Count 195 TH/MM3 Mean Platelet Volume 8.5 FL Prothrombin Time 21.6 SEC Prothromb Time International 1.9 RATIO Ratio Activated Partial 68.8 SEC Thromboplast Time Administered Medications Medications (Trade) Dose Ordered Sig/Pranav Route PRN Reason Start Time Stop Time Status Last Admin Dose Admin IV Flush 2 ml 2 ml BID FLUSH 06/05/16 21:00 06/13/16 20:39 Heparin Sodium/ Dextrose (Heparin-D5W Inj) 250 ml @ 0 mls/hr TITRATE IV 06/05/16 10:45 06/14/16 00:48 Cholecalciferol (Vitamin D3) 1,000 units DAILY PO 06/06/16 09:00 06/14/16 09:23 Abacavir Sulfate (Ziagen) 600 mg DAILY PO 06/06/16 09:00 06/14/16 09:22 Lamivudine (Epivir) 300 mg DAILY PO 06/06/16 09:00 06/14/16 09:21 Miscellaneous Information Patient in critical care unit? Ass... [id number] XX 06/05/16 21:00 06/05/16 20:56 Nitroglycerin (Nitroglycerin 2% Oint) 1 inch Q8HR PRN TOPICAL Chest pain 06/06/16 13:00 06/06/16 13:04 Metoprolol Tartrate (Lopressor) 25 mg Q12HR PO 06/06/16 21:00 06/14/16 09:22 Atorvastatin Calcium (Lipitor) 40 mg HS PO 06/06/16 21:00 06/13/16 20:39 Aspirin (Ecotrin Ec) 81 mg DAILY PO 06/07/16 09:00 06/14/16 09:22 Allopurinol (Zyloprim) 100 mg BID PO 06/07/16 09:00 Hold 06/08/16 09:41 Acetaminophen/ Hydrocodone Bitart (Maynard 7.5-325 Mg) 1 tab Q6H PRN PO PAIN SCALE 5 TO 10 06/07/16 08:00 06/13/16 23:12 Warfarin Sodium (Coumadin) 5 mg DAILY@1600 PO 06/07/16 16:00 06/13/16 16:55 Folic Acid (Folate) 1 mg DAILY PO 06/11/16 11:45 06/14/16 09:22 Cyanocobalamin (Vitamin B12) 1,000 mcg DAILY PO 06/11/16 11:45 06/14/16 09:23 Lorazepam (Ativan) 0.5 mg Q8H PRN PO ANXIETY 06/12/16 08:00 06/13/16 23:12 Enalaprilat (Vasotec Inj) 2.5 mg Q6H PRN IV PUSH SEE LABEL COMMENTS 06/13/16 00:15 06/13/16 08:38 Objective Remarks GENERAL: Middle aged male, sitting up on side of bed in [facility]. SKIN: Warm and dry. HEAD: Normocephalic. EYES: No injection or drainage. NECK: Supple, trachea midline. CARDIOVASCULAR: Regular rate and rhythm RESPIRATORY: Breath sounds equal bilaterally. No accessory muscle use. GASTROINTESTINAL: Abdomen soft, non-tender, nondistended. EXTREMITIES: No cyanosis NEUROLOGICAL: No obvious focal deficit. Awake, alert, and oriented x3. Assessment/Plan Problem List: (1) Bilateral pulmonary embolism Status: Acute Plan: on heparin bridge to coumadin. -- Hypercoagulable workup positive for homozygous [id number] variant. (2) HIV (human immunodeficiency virus infection) Status: Acute Plan: --On HAART therapy. Assessment 56-year-old male presented to the emergency room after calling an ambulance for severe shortness of breath and chest pain. Plan 1. continue heparin bridge to coumadin 2. [facility] once discharged. Attending Statement The exam, history, and the medical decision-making described in the above note were completed with the assistance of the mid-level provider. I reviewed and agree with the findings presented. I attest that I had a [id number] encounter with the patient on the same day, and personally performed and documented my assessment and findings in the medical record. Mr. Hayes was seen and examined this morning. Blood work, vital signs, medications, lab work reviewed. 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 Given the submassive nature of his bilateral pulmonary emboli, associated right ventricular dysfunction and bilateral lower extremity deep venous thromboses it would be my recommendation that the patient remain on long-term anticoagulation. I have recommended the patient also go on folic acid and B complex vitamin supplementation; this has been shown to decrease the homocystine levels. However, there is little evidence to support a modification of her risk of recurrent arterial or venous thromboses with folic acid plus vitamin B supplementation. The patient was advised to follow-up upon discharge with his [facility] for monitoring of his PT/INR. I'm happy to see him in the outpatient setting as well should his [facility] physicians request our continued involvement. The patient was counseled on the precautions he will need to take while on anticoagulation with warfarin including special attention to avoid head trauma and injury in general. He was given my office phone number and my name to contact should he have any questions or concerns upon discharge. Disposition: He may be discharged home when his INR is greater than or equal to 2 with the current dose of oral warfarin. Heparin infusion may have that time be discontinued. Kelly Rogers Jun 14, 2016 11:07 John Knutson MD Jun 14, 2016 13:27
--- NOTE | 2016-06-14 11:24 | HHI.PR ---
Subjective Remarks Follow up DVT/PE. No complaints at this time. Shortness of breath has resolved. No chest pain. Still reports some pain and swelling in the right knee, but states that it is improving. Objective Vitals Vital Signs Date Time Temp Pulse Resp B/P Pulse Ox O2 Delivery O2 Flow Rate FiO2 06/14/16 08:00 97.2 48 16 141/82 98 06/14/16 04:00 97.7 45 20 181/81 95 06/14/16 00:00 98.5 48 20 176/83 98 06/13/16 20:00 96.9 49 20 188/85 99 06/13/16 16:00 97.5 47 16 159/71 94 06/13/16 12:00 96.8 40 17 161/85 96 I/O 06/13/16 06/13/16 06/13/16 06/14/16 06/14/16 06/14/16 07:00 15:00 23:00 07:00 15:00 23:00 Intake Total 240 ml 1560 ml 420 ml 480 ml Output Total 975 ml Balance 240 ml 585 ml 420 ml 480 ml Intake Oral 240 ml 1560 ml 240 ml 480 ml Other 180 ml Output Urine Total 975 ml # Voids 3 2 3 # Bowel Movements 0 1 0 0 Result Diagram: 06/14/16 0429 06/11/16 0551 Imaging Last Impressions Chest X-Ray 06/11/16 0000 Signed Impressions: Service Date/Time: Saturday, June 11, 2016 08:55 - CONCLUSION: Stable chest. Poor inspiratory effort Justus Conway MD Abdomen/Pelvis CT 06/09/16 0000 Signed Impressions: Service Date/Time: Thursday, June 09, 2016 19:55 - CONCLUSION: 1. Small right-sided pleural effusion. Basilar atelectasis and scarring. 2. Multiple calcified gallstones in the gallbladder. 3. Mild anasarca. No bowel obstruction or free air. Trace free fluid. 4. No renal calculi or evidence for obstructive uropathy. No bladder calculi are seen. Chan Vieyra MD Lower Extremity Ultrasound 06/05/16 0000 Signed Impressions: Service Date/Time: May 18:57 - CONCLUSION: Bilateral lower extremity DVT as above. Aniket Turner MD CT Angiography 06/05/16 0000 Signed Impressions: Service Date/Time: May 08:38 - CONCLUSION: Extensive bilateral pulmonary embolism. Abdulaziz Woodson MD Objective Remarks General: No acute distress. Heart: Regular rate and rhythm. No murmur. Lungs: Clear to auscultation bilaterally. No wheezes, rales, or rhonchi. Breathing is nonlabored. Abdomen: Soft, nontender, nondistended. Extremities: Trace bilateral lower extremity edema. Mild swelling of the right knee. Psych: Alert and oriented. Procedures 06/05/2016 Echocardiogram - Procedure narrative: Transthoracic echocardiography. Image quality was fair. Scanning was performed from the parasternal, apical, and subcostal acoustic windows. - Left ventricle: The cavity size was normal. Wall thickness was normal. Systolic function was normal. The estimated ejection fraction was in the range of 55% to 60%. Wall motion was normal; there were no regional wall motion abnormalities. - Right ventricle: The cavity size was moderately enlarged with moderately to severely reduced systolic function. - Tricuspid valve: Mild regurgitation with no definite evidence for pulmonary hypertension. Urinary Catheter: No Vascular Central Line Catheter: No A/P Problem List: (1) Bilateral pulmonary embolism ICD Code: I26.99 Status: Acute (2) Acute kidney injury ICD Code: N17.9 Status: Acute (3) Hypertension ICD Code: I10 Status: Chronic (4) HIV (human immunodeficiency virus infection) ICD Code: Z21 Status: Acute (5) DVT of lower extremity, bilateral ICD Code: I82.403 Status: Acute (6) Non-ST elevation VT (NSTEMI) ICD Code: I21.4 Status: Acute (7) Hematuria ICD Code: R31.9 Status: Acute Assessment and Plan 1. Bilateral pulmonary embolism, bilateral lower extremity DVT: Continue Coumadin with heparin drip to bridge to therapeutic INR. INR is 1.9 today. Pharmacy to dose Coumadin. Cleared for discharge by hematology when INR is therapeutic (2-3). 2. Non-ST elevation VT: Cardiology was notified regarding increased troponin and recommended no further intervention at this time. 3. New onset atrial fibrillation: Continue metoprolol, statin, aspirin. 4. Acute kidney injury: Improved. 5. HIV: Patient takes HAART on a regular basis. [facility]. Last CD4 count was 900 per patient report. 6. Hypertension: Verapamil on hold secondary to hypotension upon presentation to the ER. 7. Gout: Does not appear to be an active flare. Allopurinol on hold. 8. Hematuria: UA showed moderate occult blood. H/H stable. Appreciate Urology recommendations. 9. Small pleural effusion seen on CT: Received one dose of Lasix. 10. Lower extremity edema: Improved after Lasix dose. 11. Dyspnea: Improved. May be anxiety related. Ativan as needed. Discharge Planning Discharge home when INR is therapeutic. Mayito Cantu MD Jun 14, 2016 11:24
[2016-06-14] MEDS ORDERED: METO25TA3 PO (11:28)
[2016-06-14] MEDS ORDERED: COUM5TAB PO (11:28)
[2016-06-14] MEDS ORDERED: LIPI40TA PO (11:28)
[2016-06-14] MEDS ORDERED: HYDR-3580 PO (11:28)
[2016-06-14] MEDS ORDERED: LORA-392 PO (11:28)
[2016-06-14] MEDS: WARFARIN SOD 5 MG TAB PO SCH (16:01)
[2016-06-14] MEDS: ATORVASTATIN 40 MG TAB PO SCH (20:40)
[2016-06-14] MEDS: LORazepam 0.5 MG TAB PO PRN (23:16)
[2016-06-14] MEDS: ACETAMINOPHEN/HYDROcodone 325 MG/7.5 MG TAB PO PRN (23:17)
[2016-06-15] VITALS: BP 175/82; PULSE 43; RESP 19; TEMP 98.7; O2SAT 96
[2016-06-15 01:30] VITALS: BP 154/80; PULSE 46
[2016-06-15 05:23] LABS: APTT (PATIENT) 55.2 SEC (24.3-30.1); PROTHROMBIN TIME - PATIENT 22.3 SEC (9.8-11.6)
[2016-06-15 08:00] VITALS: BP 165/82; PULSE 46; RESP 18; TEMP 97.3; O2SAT 98
[2016-06-15] MEDS: CYANOCOBALAMIN 1,000 MCG TAB PO SCH (08:36)
[2016-06-15] MEDS: HEPARIN-D5W INJ 250 ML IV SCH (08:38)
[2016-06-15] MEDS: CHOLECALCIFEROL (VIT D3) 1000 UNIT TAB PO SCH (08:39)
[2016-06-15] MEDS: FOLIC ACID 1 MG TAB PO SCH (08:39)
[2016-06-15] MEDS: ASPIRIN EC 81 MG TABEC PO SCH (08:39)
[2016-06-15] MEDS: DOLUTEGRAVIR SODIUM 50 MG TAB PO SCH (08:40)
[2016-06-15] MEDS: ABACAVIR SULFATE 300 MG TAB PO SCH (08:41)
[2016-06-15] MEDS: SODIUM CHLORIDE 0.9% FLUSH 5 ML FLUSH FLUSH SCH (08:42)
--- NOTE | 2016-06-15 10:05 | HHI.DCPOC ---
Discharge Care Plan Diagnosis: (1) DVT of lower extremity, bilateral (2) Bilateral pulmonary embolism (3) Hematuria (4) Hypertension (5) HIV (human immunodeficiency virus infection) Goals to Promote Your Health * To prevent worsening of your condition and complications * To maintain your health at the optimal level Directions to Meet Your Goals Take your medications as prescribed Follow your dietary instruction Follow activity as directed Keep your appointments as scheduled Take your immunizations and boosters as scheduled If your symptoms worsen call your PCP, if no PCP go to Urgent Care Center or Emergency Room Smoking is Dangerous to Your Health. Avoid second hand smoke Call the 24-hour hour crisis hotline for domestic abuse at Mayito Cantu MD Jun 15, 2016 10:05
--- NOTE | 2016-06-15 10:08 | HHI.DS ---
Discharge Summary Admission Date Jun 05, 2016 at 09:49 Discharge Date: Jun 15, 2016 Admitting Diagnosis Bilateral PE (1) Bilateral pulmonary embolism ICD Code: I26.99 (2) Acute kidney injury ICD Code: N17.9 (3) Hypertension ICD Code: I10 (4) HIV (human immunodeficiency virus infection) ICD Code: Z21 (5) DVT of lower extremity, bilateral ICD Code: I82.403 (6) Non-ST elevation NC (NSTEMI) ICD Code: I21.4 (7) Hematuria ICD Code: R31.9 Procedures 06/05/2016 Echocardiogram - Procedure narrative: Transthoracic echocardiography. Image quality was fair. Scanning was performed from the parasternal, apical, and subcostal acoustic windows. - Left ventricle: The cavity size was normal. Wall thickness was normal. Systolic function was normal. The estimated ejection fraction was in the range of 55% to 60%. Wall motion was normal; there were no regional wall motion abnormalities. - Right ventricle: The cavity size was moderately enlarged with moderately to severely reduced systolic function. - Tricuspid valve: Mild regurgitation with no definite evidence for pulmonary hypertension. Brief History - From Admission Mr. Hayes is a pleasant 56-year-old [employer] with a history of hypertension, HIV who presents to the emergency department today due to worsening shortness of breath that started about 2 months ago. Last night his shortness of breath was severe which prompted him to come to the emergency department. He also reported some chest tightness as as well as diaphoresis. When patient initially arrived to the emergency department, his heart rate was in the 130s, blood pressure systolic 80s to 90s, tachypneic with respiratory rate 29, hypoxic with oxygen saturation less than 90. He was given 1 L of fluid and supplemental oxygen and subsequently improved. Currently, patient is slightly tachycardic, oxygenating well on supplemental O2. BP is within reasonable range with systolic in 120s range. Patient denies any changes in bladder habits but reports some constipation. Denies fever, chills but reports feeling hot. Patient does not want us to share his HIV status with anyone within his family. CBC/BMP: 06/14/16 0429 06/11/16 0551 Significant Findings Laboratory Tests Test 06/13/16 06/14/16 06/15/16 05:31 04:29 03:50 Red Blood Count 3.43 MIL/MM3 3.54 MIL/MM3 (4.50-5.90) (4.50-5.90) Hemoglobin 12.1 GM/DL 12.5 GM/DL (13.0-17.0) (13.0-17.0) Hematocrit 35.0 % 36.3 % (39.0-51.0) (39.0-51.0) Mean Corpuscular Volume 102.0 FL 102.3 FL (80.0-100.0) (80.0-100.0) Mean Corpuscular Hemoglobin 35.3 PG 35.4 PG (27.0-34.0) (27.0-34.0) Monocytes (%) (Auto) 12.1 % (0.0-8.0) Prothrombin Time 20.8 SEC 21.6 SEC 22.3 SEC (9.8-11.6) (9.8-11.6) (9.8-11.6) Activated Partial 56.2 SEC 68.8 SEC 55.2 SEC Thromboplast Time (24.3-30.1) (24.3-30.1) (24.3-30.1) Imaging Last Impressions Chest X-Ray 06/11/16 0000 Signed Impressions: Service Date/Time: Saturday, June 11, 2016 08:55 - CONCLUSION: Stable chest. Poor inspiratory effort Justus Conway MD Abdomen/Pelvis CT 06/09/16 0000 Signed Impressions: Service Date/Time: Thursday, June 09, 2016 19:55 - CONCLUSION: 1. Small right-sided pleural effusion. Basilar atelectasis and scarring. 2. Multiple calcified gallstones in the gallbladder. 3. Mild anasarca. No bowel obstruction or free air. Trace free fluid. 4. No renal calculi or evidence for obstructive uropathy. No bladder calculi are seen. Chan Vieyra MD Lower Extremity Ultrasound 06/05/16 0000 Signed Impressions: Service Date/Time: May 18:57 - CONCLUSION: Bilateral lower extremity DVT as above. Aniekt Turner MD CT Angiography 06/05/16 0000 Signed Impressions: Service Date/Time: May 08:38 - CONCLUSION: Extensive bilateral pulmonary embolism. Abdulaziz Woodson MD PE at Discharge General: No acute distress. Heart: Regular rate and rhythm. No murmur. Lungs: Clear to auscultation bilaterally. No wheezes, rales, or rhonchi. Breathing is nonlabored. Abdomen: Soft, nontender, nondistended. Extremities: Trace bilateral lower extremity edema. Mild swelling of the right knee. Psych: Alert and oriented. Pt update on day of discharge The patient has no complaints today. Denies chest pain, dyspnea. No lightheadedness or dizziness. Feels ready to go home. Cardiology was contacted regarding bradycardia. Dr. Vieyra, covering for Dr. Arndt, cleared the patient for discharge as he is asymptomatic. Hospital Course The patient was admitted for treatment of bilateral pulmonary embolus. He was started on heparin drip. IV fluids were given for acute kidney injury. Hematology was consulted. Hypercoagulable panel was ordered. Recommendations were made for long-term anticoagulation. The patient was started on coumadin with heparin bridging to therapeutic INR. Cardiology was consulted to evaluate for right ventricular dysfunction. Patient developed hematuria, which resolved. Urology was consulted and evaluated the patient. CT urogram was negative. INR increased slowly and patient was discharged home when INR reached the therapeutic range. He was advised to follow up the next morning at the [facility] for INR check. Pt Condition on Discharge: Stable Discharge Disposition: Discharge Home Discharge Time: > 30 minutes Discharge Instructions DIET: Follow Instructions for: Coumadin (Warfarin) Diet Activities you can perform: Regular-No Restrictions Follow up Referrals: Cardiology - 2 Months with Malcom Arndt MD Oncology - 1 Week with John Knutson MD PCP Follow-up - 1 Week Urology with Dav Albarran MD New Orders: PT/INR - Next Day New Medications: Atorvastatin (Lipitor) 40 Mg Tab 40 MG PO HS Cholesterol Management #30 Ref 0 TAB Hydrocodone-Acetaminophen (Hydrocodone-Acetaminophen) 7.5-325 mg Tab 1 TAB PO Q6H PRN PAIN SCALE 5 TO 10 #20 Ref 0 TAB Lorazepam (Ativan) 0.5 Mg Tab 0.5 MG PO Q8H PRN ANXIETY #10 Ref 0 TAB Warfarin (Coumadin) 5 Mg Tab 5 MG PO DAILY@1600 DVT/PE #30 Ref 0 TAB Continued Medications: Vlpxartk-Lzlynfxlamuw-Yaqszzunfx (Triumeq) 600-50-300 Mg Tab 1 TAB PO DAILY Hazardous agent; use appropriate precautions for handling & disposal. Mgmt Viral Infection #30 Ref 0 TAB Allopurinol (Allopurinol) 100 Mg Tab 100 MG PO BID Gout #[address] Ref [address] (Bisacodyl EC) 5 Mg Tabec 5 MG PO HS PRN CONSTIPATION Ref 0 TAB Cholecalciferol (Vitamin D) 1,000 Unit Tab 1000 UNITS PO DAILY Nutritional Supplement #1 Ref 0 BOTTLE Clotrimazole Topical (Clotrimazole Anti-Fungal Topical) 1% Cream 1 APPLIC TOPICAL BID PRN FUNGUS #1 Ref 0 TUBE Diclofenac Topical (Diclofenac Topical) 1% Gel 2 GM TOPICAL BID PRN KNEE PAIN #100 Ref 0 GM Multiple Vitamins W/ Minerals (Centrum Silver Ultra Mens) 1 Tab Tab 1 TAB PO DAILY Turmeric (Curcuma Longa) (Turmeric) 500 Mg Cap Unknown Dose PO DAILY Nutritional Supplement Ref 0 CAP Discontinued Medications: Verapamil HCl (Verapamil HCl SA) 180 Mg Tab 180 MG PO DAILY Mayito Cantu MD Jun 15, 2016 10:08
[2016-06-15] MEDS ORDERED: WARFARIN SOD 5 MG TAB PO ONE (11:00)
== END 2016-06-15 10:57 | disposition home or self-care (01) | DRG 175 ==
LOC: NEPC 06:38 → NEDA 09:49 → HIMN 14:50 → N07B 06-07 16:24
PROVIDERS: ADMIT Family Medicine; ATTEND Family Medicine
DX: I26.99 Other pulmonary embolism without acute cor pulmonale (principal); I21.4 Non-ST elevation (NSTEMI) myocardial infarction; N17.9 Acute kidney failure, unspecified; J90 Pleural effusion, not elsewhere classified; I48.92 Unspecified atrial flutter; I95.9 Hypotension, unspecified; I48.91 Unspecified atrial fibrillation; I82.411 Acute embolism and thrombosis of right femoral vein; I82.431 Acute embolism and thrombosis of right popliteal vein; I82.441 Acute embolism and thrombosis of right tibial vein; I82.432 Acute embolism and thrombosis of left popliteal vein; I82.493 Acute embolism and thrombosis of other specified deep vein of lower extremity, bilateral; I10 Essential (primary) hypertension; M10.9 Gout, unspecified; F17.210 Nicotine dependence, cigarettes, uncomplicated; Z21 Asymptomatic human immunodeficiency virus [HIV] infection status; R31.0 Gross hematuria; R09.02 Hypoxemia; F41.9 Anxiety disorder, unspecified; K59.00 Constipation, unspecified; R60.0 Localized edema; E87.6 Hypokalemia
CPT/HCPCS: 36600; 71010; 71275; 74177; 80048; 80053; 80061; 81001; 81240; 81241; 81291; 82435; 82550; 82552; 82805; 82947; 83090; 83735; 83880; 84132; 84295; 84484; 84520; 85014; 85018; 85025; 85027; 85240; 85300; 85303; 85306; 85307; 85379; 85610; 85613; 85730; 86146; 86147; 86148; 87641; 93005; 93306; 93970; 94640; 94664; J0282; J1200; J1644; J1940; J7030; J7644; Q9967

== ENCOUNTER 2016-06-25 04:20 | Observation (INO) | payer OTHER ==
[~2016-06-25] VITALS: Ht 188 cm; Wt 110.0 kg
[~2016-06-25 04:20] MED LIST changes: +ABAC1TAB3 PO; +ALLO100T PO; +CENTTAB20 PO; +CLOT1CRE6 TOPICAL; +COUM5TAB PO; -CYCL5TAB PO; -DICL-86 PO; +DICL1GEL7 TOPICAL; +FLEE5TAB PO; +HYDR-3580 PO; -IBUP-238 PO; +LIPI40TA PO; +LORA-392 PO; +TURM500C PO; +VITA100064 PO
[2016-06-25 04:43] VITALS: BP 157/77; PULSE 60; RESP 16; TEMP 98.1; O2SAT 97
[2016-06-25] MEDS ORDERED: SODIUM CHLORIDE 0.9% FLUSH 5 ML FLUSH IVF PRN ×2 (05:15→07:45)
[2016-06-25] MEDS ORDERED: MORPHINE SULFATE 4 MG/ML INJ IV PUSH ONE (05:15)
[2016-06-25] MEDS ORDERED: SODIUM CHLORID 0.9% 500 ML INJ 500 ML IV ONE (05:15)
[2016-06-25] MEDS: NITROGLYCERIN 0.4 MG SL 25 TABS/BTL SL SCH ×3 (05:20→06:19)
--- NOTE | 2016-06-25 05:28 | PD ---
HPI Chief Complaint: Respiratory Distress Time Seen by Provider: 05:13 Travel History International Travel<30 days: No Contact w/Intl Traveler<30days: No Traveled to known affect area: No History of Present Illness HPI 56 y.o male with history of HIV, recent bilateral PE about 3 weeks ago and HTN presents to the ED due to chest pain/tightness and throat tightness that started at about 2 am this morning. He states that it felt as if his " throat was closing up". He got anxious and took 0.5 mg Ativan at about 3:34 am. His chest and throat tightness got worse, and patient started to experience SOB. He reports compliance with warfarin. He says that he feels much better since he' s been at the ED. He states that he left the hospital a little over a week ago after he was admitted for 11 days due to PE. He is now on warfarin. Patient reports that he takes all his medication regularly including his antiviral medicine. His last CD4 count was in 900s. He admits to smoke 10 cigarette a day. He vomited once this morning and denies any diarrhea, abdominal pain, headache or weakness. PFSH Past Medical History Autoimmune Disease: No Cancer: No Cardiovascular Problems: No Diminished Hearing: No Endocrine: No Genitourinary: No Hypertension: Yes Immune Disorder: Yes (HIV diagnosed in 2001) Musculoskeletal: No Neurologic: No Psychiatric: No Reproductive: No Respiratory: No Past Surgical History Abdominal Surgery: No AICD: No Arteriovenous Shunt: No Cardiac Surgery: No Ear Surgery: No Endocrine Surgery: No Eye Surgery: No Genitourinary Surgery: No Gynecologic Surgery: No Insulin Pump: No Joint Replacement: No Oral Surgery: No Pacemaker: No Thoracic Surgery: Yes (Bilatoral Mastectomy ) Other Surgery: Yes Social History Alcohol Use: Yes Tobacco Use: Yes (2-3 CIGS/DAY) Substance Use: Yes (smokes marijuana) Allergies-Medications (Allergen,Severity, Reaction): Coded Allergies: No Known Allergies (Verified , 06/05/16) Reported Meds & Prescriptions Reported Meds & Active Scripts Active Ativan (Lorazepam) 0.5 Mg Tab 0.5 Mg PO Q8H PRN Lipitor (Atorvastatin Calcium) 40 Mg Tab 40 Mg PO HS Reported Diclofenac Topical 1% Gel 2 Gm TOPICAL BID PRN Centrum Silver Ultra Mens (Multiple Vitamins W/ Minerals) 1 Tab Tab 1 Tab PO DAILY Clotrimazole Anti-Fungal Topical (Clotrimazole) 1% Cream 1 Applic TOPICAL BID PRN Bisacodyl EC (Bisacodyl) 5 Mg Tabec 5 Mg PO HS PRN Allopurinol 100 Mg Tab 100 Mg PO BID Triumeq ([place]-Jefbibfqybmc-Oorcxwubbp) 600-50-300 Mg Tab 1 Tab PO DAILY Hazardous agent; use appropriate precautions for handling & disposal. Turmeric (Turmeric (Curcuma Longa)) 500 Mg Cap Unknown Dose PO DAILY Vitamin D (Cholecalciferol) 1,000 Unit Tab 1,000 Units PO DAILY Review of Systems Except as stated in HPI: all other systems reviewed are Neg General / Constitutional: No: Fever, Chills Eyes: No: Blurred Vision HENT: No: Headaches, Sore Throat (but throat tightness ) Cardiovascular: Positive: Chest Pain or Discomfort, No: Palpitations, Syncope Respiratory: Positive: Shortness of Breath (improved ), No: Cough, Wheezing, Night Sweats Gastrointestinal: Positive: Vomiting (once ), No: Diarrhea, Abdominal Pain, Hematemesis Genitourinary: No: Urgency, Frequency Musculoskeletal: No: Weakness Skin: No Rash Neurologic: No: Weakness, Dizziness, Headache Psychiatric: Positive: Anxiety (Patient does not know why) Physical Exam Narrative GENERAL: 56 y.o male, well-developed, well-nourished, alert and oriented, comfortably lying in bed in no acute distress SKIN: Warm and dry. HEAD: Atraumatic. Normocephalic. EYES: Pupils equal and round. No scleral icterus. No injection or drainage. ENT: No nasal bleeding or discharge. Mucous membranes pink and moist. NECK: Trachea midline. No JVD. CARDIOVASCULAR: Regular rate and rhythm RESPIRATORY: No accessory muscle use. Clear to auscultation. Breath sounds equal bilaterally. GASTROINTESTINAL: Abdomen soft, non-tender, nondistended. Hepatic and splenic margins not palpable. MUSCULOSKELETAL: Extremities without clubbing, cyanosis, or edema. No obvious deformities. NEUROLOGICAL: Awake and alert. No obvious cranial nerve deficits. Motor grossly within normal limits. Five out of 5 muscle strength in the arms and legs. Normal speech. PSYCHIATRIC: Appropriate mood and affect; insight and judgment normal. Data Data Last Documented VS Vital Signs Date Time Temp Pulse Resp B/P Pulse Ox O2 Delivery O2 Flow Rate FiO2 2/8/17 06:34 100 Room Air 06/25/16 04:47 60 16 2 06/25/16 04:43 98.1 157/77 Orders Electrocardiogram (06/25/16 05:13) Basic Metabolic Panel (Bmp) (06/25/16 05:13) Ckmb (Isoenzyme) Profile (06/25/16 05:13) Complete Blood Count With Diff (06/25/16 05:13) Magnesium (Mg) (06/25/16 05:13) Prothrombin Time / Inr (Pt) (06/25/16 05:13) Act Partial Throm Time (Ptt) (06/25/16 05:13) Troponin I (06/25/16 05:13) Chest, Single Ap (06/25/16 05:13) Ecg Monitoring (06/25/16 05:13) Bilateral Bp Monitoring (06/25/16 05:13) Iv Access Insert/Monitor (06/25/16 05:13) Oximetry (06/25/16 05:13) Oxygen Administration (06/25/16 05:13) Morphine Inj (Morphine Inj) (06/25/16 05:15) Sodium Chloride 0.9% Flush (Ns Flush) (06/25/16 05:15) Nitroglycerin Sl (Nitrostat Sl) (06/25/16 05:15) Sodium Chlorid 0.9% 500 Ml Inj (Ns 500 M (06/25/16 05:15) CKMB (06/25/16 06:17) CKMB% (06/25/16 06:17) Admit Order (Ed Use Only) (06/25/16 07:37) Activity Bed Rest With Brp (06/25/16 07:37) Vital Signs (Adult) Q4H (06/25/16 07:37) Cardiac Rhythm .As Directed (06/25/16 07:37) ^ Notify Dr: Other .PRN (06/25/16 07:37) ^ Notify Dr. Parameters (06/25/16 07:37) Resp Oxygen Nasal Cannula (06/25/16 ) Diet Npo (06/25/16 Breakfast) Ckmb (Isoenzyme) Profile (06/25/16 07:37) Ckmb (Isoenzyme) Profile (06/25/16 10:37) Troponin I (06/25/16 07:37) Troponin I (06/25/16 10:37) Electrocardiogram (06/25/16 07:37) Electrocardiogram (06/25/16 10:37) ^ Obtain (06/25/16 07:37) Sodium Chloride 0.9% Flush (Ns Flush) (06/25/16 07:45) Sodium Chloride 0.9% Flush (Ns Flush) (06/25/16 09:00) Acetamin-Hydrocod 325-7.5 Mg (Tea 7.5 (06/25/16 07:45) Morphine Inj (Morphine Inj) (06/25/16 07:45) Ondansetron Inj (Zofran Inj) (06/25/16 07:45) Nitroglycerin Sl (Nitrostat Sl) (06/25/16 07:45) Aspirin (Aspirin) (06/25/16 09:00) Temazepam (Restoril) (06/25/16 07:45) Alprazolam (Xanax) (06/25/16 07:45) Copy Messenger / Telemetry HILLARY.Q8H (06/25/16 07:37) Labs Laboratory Tests Test 06/25/16 06/25/16 05:36 06:17 White Blood Count 5.6 TH/MM3 Red Blood Count 4.05 MIL/MM3 Hemoglobin 14.6 GM/DL Hematocrit 41.4 % Mean Corpuscular Volume 102.3 FL Mean Corpuscular Hemoglobin 36.0 PG Mean Corpuscular Hemoglobin 35.2 % Concent Red Cell Distribution Width 14.8 % Platelet Count 323 TH/MM3 Mean Platelet Volume 9.8 FL Neutrophils (%) (Auto) 56.8 % Lymphocytes (%) (Auto) 29.7 % Monocytes (%) (Auto) 10.3 % Eosinophils (%) (Auto) 2.1 % Basophils (%) (Auto) 1.1 % Neutrophils # (Auto) 3.2 TH/MM3 Lymphocytes # (Auto) 1.7 TH/MM3 Monocytes # (Auto) 0.6 TH/MM3 Eosinophils # (Auto) 0.1 TH/MM3 Basophils # (Auto) 0.1 TH/MM3 CBC Comment DIFF FINAL Differential Comment Prothrombin Time 20.7 SEC Prothromb Time International 1.8 RATIO Ratio Activated Partial 30.1 SEC Thromboplast Time Sodium Level 143 MEQ/L Potassium Level 4.2 MEQ/L Chloride Level 108 MEQ/L Carbon Dioxide Level 30.3 MEQ/L Anion Gap 5 MEQ/L Blood Urea Nitrogen 16 MG/DL Creatinine 1.16 MG/DL Estimat Glomerular Filtration 78 ML/MIN Rate Random Glucose 84 MG/DL Calcium Level 8.5 MG/DL Magnesium Level 2.5 MG/DL Total Creatine Kinase 125 U/L Creatine Kinase MB 0.8 NG/ML Troponin I LESS THAN 0.02 NG/ML MDM Medical Decision Making Medical Screen Exam Complete: Yes Emergency Medical Condition: Yes Medical Record Reviewed: Yes Differential Diagnosis NSTEMI, unstable angina, coronary vasospasm, PE, PTX, aortic dissection, pericarditis, myocarditis, endocarditis, PNA, esophageal disease, aneurysm, musculoskeletal etiologies, anxiety, cocaine/sympathomimetic abuse Narrative Course EKG: sinus, rate 61, TWI precordial leads CBC & BMP Diagram 06/25/16 05:36 06/25/16 06:17 Last 24 hours Impressions Chest X-Ray 06/25/16 0513 Signed Impressions: Service Date/Time: Saturday, June 25, 2016 03:38 - CONCLUSION: No acute disease. Carlos Farnsworth MD , The patient will be evaluated in the chest pain center. Diagnosis Primary Impression: Chest pain Qualified Code: R07.9 - Chest pain, unspecified type Admitting Information Admitting Physician Requests: Arden Delgado MD Jun 25, 2016 05:28
[2016-06-25 05:45] LABS: AUTOMATED NEUTROPHIL # 3.2 TH/MM3 (1.8-7.7); BASOPHIL # 0.1 TH/MM3 (0-0.2); BASOPHIL % 1.1 % (0.0-2.0); EOSINOPHIL # 0.1 TH/MM3 (0-0.4); EOSINOPHIL % 2.1 % (0.0-4.0); HEMATOCRIT 41.4 % (39.0-51.0); HEMO FLAGS DIFF FINAL; LYMPH % 29.7 % (9.0-44.0); LYMPHOCYTE # 1.7 TH/MM3 (1.0-4.8); MEAN CELL VOLUME 102.3 FL (80.0-100.0); MEAN CORPUSCULAR HGB CONC 35.2 % (32.0-36.0); MONO % 10.3 % (0.0-8.0); NEUT % 56.8 % (16.0-70.0); PLATELET COUNT 323 TH/MM3 (150-450); RED BLOOD COUNT 4.05 MIL/MM3 (4.50-5.90); RED CELL DISTRIBUTION WIDTH 14.8 % (11.6-17.2); WHITE BLOOD COUNT 5.6 TH/MM3 (4.0-11.0)
--- NOTE | 2016-06-25 05:46 | RADRPT ---
EXAM DATE/TIME: 06/25/2016 03:38 [facility] COMPARISON: CHEST SINGLE AP, June 11, 2016, 8:55. INDICATIONS : Patient had tightness in chest this morning. MEDICAL HISTORY : Hypertension. HIV. SURGICAL HISTORY : None. ENCOUNTER: Initial ACUITY: 1 day PAIN SCORE: 4/10 LOCATION: Bilateral chest FINDINGS: A single view of the chest demonstrates the lungs to be symmetrically aerated without evidence of mas s, infiltrate or effusion. The cardiomediastinal contours are unremarkable. Osseous structures are intact. CONCLUSION: No acute disease. Carlos Farnsworth MD on June 25, 2016 at 5:45 Board Certified Radiologist. This report was verified electronically.
[2016-06-25 06:33] LABS: APTT (PATIENT) 30.1 SEC (24.3-30.1); INTERNATIONAL NORMALIZED RATIO 1.8 RATIO; PROTHROMBIN TIME - PATIENT 20.7 SEC (9.8-11.6)
[2016-06-25 06:34] VITALS: O2SAT 100
[2016-06-25 06:39] LABS: ANION GAP 5 MEQ/L (5-15); BICARBONATE 30.3 MEQ/L (21.0-32.0); BLOOD UREA NITROGEN 16 MG/DL (7-18); CHLORIDE 108 MEQ/L (98-107); GLOMERULAR FILTRATION RATE 78 ML/MIN (>89); MAGNESIUM 2.5 MG/DL (1.5-2.5); POTASSIUM 4.2 MEQ/L (3.5-5.1); SODIUM (NA) 143 MEQ/L (136-145)
[2016-06-25 06:43] LABS: CREATINE KINASE 125 U/L (39-308)
[2016-06-25 06:55] LABS: CKMB 0.8 NG/ML (0.5-3.6)
[2016-06-25 07:00] VITALS: BP 121/67; PULSE 58; RESP 19; O2SAT 99
[2016-06-25] MEDS ORDERED: ACETAMINOPHEN/HYDROcodone 325 MG/7.5 MG TAB PO PRN (07:45)
[2016-06-25] MEDS ORDERED: ONDANSETRON HCL 4 MG/2 ML VIAL IV PRN (07:45)
[2016-06-25] MEDS ORDERED: TEMAZEPAM 15 MG CAP PO PRN (07:45)
[2016-06-25] MEDS ORDERED: NITROGLYCERIN 0.4 MG SL 25 TABS/BTL SL PRN (07:45)
[2016-06-25] MEDS ORDERED: ALPRAZolam 0.25 MG TAB PO PRN (07:45)
[2016-06-25] MEDS ORDERED: MORPHINE SULFATE 4 MG/ML INJ IV PRN (07:45)
[2016-06-25 08:00] VITALS: BP 128/77; PULSE 56; RESP 22; O2SAT 99
[2016-06-25 08:48] VITALS: O2SAT 98
[2016-06-25] MEDS ORDERED: SODIUM CHLORIDE 0.9% FLUSH 5 ML FLUSH IVF SCH (09:00)
[2016-06-25] MEDS ORDERED: ASPIRIN 325 MG TAB PO SCH (09:00)
[2016-06-25 10:00] VITALS: BP 133/84; PULSE 52; RESP 18; O2SAT 100
[2016-06-25 10:30] LABS: CREATINE KINASE 116 U/L (39-308)
[2016-06-25 10:43] LABS: CKMB 1.1 NG/ML (0.5-3.6)
[2016-06-25] MEDS ORDERED: IOHEXOL 350 MG/ML 10 ML VIAL (for RAD DIAG) IV ONE (10:57)
--- NOTE | 2016-06-25 11:14 | RADRPT ---
EXAM DATE/TIME: 06/25/2016 10:46 [facility] COMPARISON: CT PULMONARY ANGIOGRAM, June 05, 2016, 8:38. INDICATIONS: Continued chest pain and shortness of breath with recent history of bilateral pulmonary emboli. IV CONTRAST: 74 cc Omnipaque 350 (iohexol) IV RADIATION DOSE: 16.64 CTDIvol (mGy) MEDICAL HISTORY: Hypertension. Pulmonary emboli SURGICAL HISTORY: None. ENCOUNTER: Initial ACUITY: 2 weeks PAIN SCALE: 4/10 LOCATION: Bilateral chest TECHNIQUE: Volumetric scanning of the chest was performed using a pulmonary embolism protocol MIP images were re constructed. Using automated exposure control and adjustment of the mA and/or kV according to patien t size, radiation dose was kept as low as reasonably achievable to obtain optimal diagnostic quality images. FINDINGS: Again seen are the large bilateral pulmonary emboli. These have decreased slightly in the interval. The lungs are clear. Heart is minimally enlarged, pulmonary vascularity is normal. Portion of liver and spleen identified are free of focal defects. CONCLUSION: Bilateral pulmonary emboli, minimally improved. Ken Pradhan MD FACR on June 25, 2016 at 11:01 Board Certified Radiologist. This report was verified electronically.
[2016-06-25] MEDS ORDERED: LORazepam 0.5 MG TAB PO PRN (11:30)
--- NOTE | 2016-06-25 11:42 | HHI.HP ---
HPI Primary Care Physician [facility] Chief Complaint Chest pain History of Present Illness This is a 56-year-old male that presents to the ED with a complaint of chest discomfort. Patient was hospitalized less than 3 weeks ago for bilateral PE and DVT. He is taking Coumadin. He states that 2 days ago his INR was 2.0. He complains of a tightness in the center of his chest and neck that began at 3: 30 this morning and is still there. He states it is similar to when he had been diagnosed with a PE but the discomfort is not as intense. He was nauseous and states he had one episode of nonbloody emesis. He states that he has been short of breath but has not noticed a difference. Denies history of CAD. Review of Systems General: Patient denies fevers, chills recent, and recent travel HEENT: Patient denies headache, sore throat, difficulty swallowing. Cardiovascular: Has the chest discomfort as mentioned above. Denies sensation of heart beating rapidly or irregularly. Denies diaphoresis. No syncope. Respiratory: Patient has been short of breath. However he states that it has not changed. Denies coughing wheezing or hemoptysis. GI: Patient had nausea with one episode of emesis. Denies abdominal pain, bloody stools. Musculoskeletal: Patient denies joint pain or edema. Denies calf pain or edema. Neurovascular: Patient denies numbness, tingling, weakness in extremities. Denies headache. Endocrine: Denies polyuria and polydipsia. Hematologic: Denies easy bruising. Skin: Denies rash or itching. Past Family Social History Allergies: Coded Allergies: No Known Allergies (Verified , 06/05/16) Past Medical History Bilateral pulmonary emboli and DVT a couple weeks ago. On Coumadin. HIV Hypertension Hyperlipidemia Tobacco abuse. Denies diabetes and known CAD. Past Surgical History Noncontributory. Reported Medications Diclofenac, multivitamin, clotrimazole, Bisacodyl, allopurinol, Triumeq, Tumeric , vitamin D. Warfarin, atorvastatin. Family History He states that his mother postop cardiac surgery in her 70s. He really is not sure of the surgery she was having. Social History Patient has been smoking 1-2 cigarettes a day for last couple weeks before that he smoked three-quarter packs of cigarettes daily for more than 30 years. Denies alcohol or illicit drugs. Physical Exam Vital Signs Vital Signs Date Time Temp Pulse Resp B/P Pulse Ox O2 Delivery O2 Flow Rate FiO2 06/25/16 10:00 52 18 133/84 100 Nasal Cannula 2 06/25/16 08:48 98 Nasal Cannula 3.00 06/25/16 08:00 56 22 128/77 99 Nasal Cannula 2 06/25/16 07:00 58 19 121/67 99 Nasal Cannula 2 06/25/16 06:34 100 Room Air 06/25/16 06:34 100 Room Air 06/25/16 04:47 60 16 99 Nasal Cannula 2 06/25/16 04:43 98.1 60 16 157/77 97 Physical Exam GENERAL: This is a well-nourished, well-developed patient, in no apparent distress. Patient speaks in clear complete sentences. Patient is pleasant. HEENT: Head is atraumatic and normocephalic. Neck is supple without lymphadenopathy and trachea is midline. No JVD or carotid bruits. CARDIOVASCULAR: Regular rate and rhythm without murmurs, gallops, or rubs. RESPIRATORY: Clear to auscultation. Breath sounds equal bilaterally. No wheezes , rales, or rhonchi. Chest wall is nontender. No use of accessory muscles. GASTROINTESTINAL: Abdomen is nontender, nondistended. Abdomen soft. No obvious pulsatile mass or bruit. No CVA tenderness. Strong femoral pulses bilaterally. Normal bowel sounds in all quadrants. MUSCULOSKELETAL: Patient is moving upper and lower extremities freely. No calf tenderness or edema, no Homans sign. Strong pulses in upper and lower extremities. NEUROLOGICAL: Patient is alert and oriented. Cranial nerves 2-12 are grossly intact. No focal deficits and speech is clear. SKIN: No rash and turgor is normal. Laboratory Laboratory Tests Test 06/25/16 06/25/16 06/25/16 05:36 06:17 09:20 White Blood Count 5.6 Red Blood Count 4.05 Hemoglobin 14.6 Hematocrit 41.4 Mean Corpuscular Volume 102.3 Mean Corpuscular Hemoglobin 36.0 Mean Corpuscular Hemoglobin 35.2 Concent Red Cell Distribution Width 14.8 Platelet Count 323 Mean Platelet Volume 9.8 Neutrophils (%) (Auto) 56.8 Lymphocytes (%) (Auto) 29.7 Monocytes (%) (Auto) 10.3 Eosinophils (%) (Auto) 2.1 Basophils (%) (Auto) 1.1 Neutrophils # (Auto) 3.2 Lymphocytes # (Auto) 1.7 Monocytes # (Auto) 0.6 Eosinophils # (Auto) 0.1 Basophils # (Auto) 0.1 CBC Comment DIFF FINAL Differential Comment Prothrombin Time 20.7 Prothromb Time International 1.8 Ratio Activated Partial 30.1 Thromboplast Time Sodium Level 143 Potassium Level 4.2 Chloride Level 108 Carbon Dioxide Level 30.3 Anion Gap 5 Blood Urea Nitrogen 16 Creatinine 1.16 Estimat Glomerular Filtration 78 Rate Random Glucose 84 Calcium Level 8.5 Magnesium Level 2.5 Total Creatine Kinase 125 116 Creatine Kinase MB 0.8 1.1 Troponin I LESS THAN 0.02 LESS THAN 0.02 Result Diagram: 06/25/16 0536 06/25/16 0617 Imaging Last Impressions Chest X-Ray 06/25/16 0513 Signed Impressions: Service Date/Time: Saturday, June 25, 2016 03:38 - CONCLUSION: No acute disease. Carlos Farnsworth MD Course EKGs have sinus rhythm to sinus bradycardia with nonspecific T-wave changes. Assessment and Plan Assessment and Plan 1) Chest pain: Patient had serial cardiac enzymes and EKGs for ruling out purposes. He was seen by Dr. Silvestre Montes of cardiology in the chest pain center. At this time we will get another CT pulmonary angiogram to see if his pulmonary emboli have worsened. This scan is stable then would proceed with Lexiscan. We'll hold Coumadin until results of Lexiscan in case he may need heart catheterization for abnormal nuclear. If his Lexiscan were to be nonischemic he would then be discharged home with instructions to continue current medication. We'll give him another dose of warfarin and he should have his INR rechecked with his physician is managing his Coumadin levels. 2) Pulmonary emboli: Patient will resume his Coumadin and continue management with his physician. 3) HIV: Continue current medications. 4) tobacco abuse: Patient has been counseled on importance of smoking cessation. Jeff Harper Jun 25, 2016 11:41
[2016-06-25] MEDS ORDERED: LAMIVUDINE PO SCH (11:45)
[2016-06-25] MEDS ORDERED: DOLUTEGRAVIR PO SCH (11:45)
[2016-06-25] MEDS ORDERED: ABACAVIR PO SCH (11:45)
[2016-06-25] MEDS ORDERED: REGADENOSON INJ 0.4 MG/5 ML SYR ONE (13:46)
[2016-06-25 14:16] LABS: CREATINE KINASE 110 U/L (39-308)
[2016-06-25 14:28] LABS: CKMB 1.1 NG/ML (0.5-3.6)
--- NOTE | 2016-06-25 15:37 | RADRPT ---
EXAM DATE/TIME: 06/25/2016 13:25 [facility] COMPARISON: No previous studies available for comparison. INDICATIONS : Chest pain and current smoker. Angina. DOSE: 35 mCi Tc99m Myoview at stress. 11 mCi Tc99m Myoview at rest. 0.4 mg Lexiscan STRESS SYMPTOMS: Headache and dyspnea. EJECTION FRACTION: 54% MEDICAL HISTORY : Hypertension. SURGICAL HISTORY : Mastectomy, bilateral. ENCOUNTER: Initial ACUITY: 1 day PAIN SCALE: 4/10 LOCATION: Bilateral chest TECHNIQUE: The patient underwent pharmacologic stress with infusion of prescribed dose. Continuous ECG tracing was monitored during stress. Gated SPECT imaging was performed after stress and conventional SPECT i maging was performed at rest. The examination was performed on a SPECT/CT scanner, both attenuation and non-corrected datasets were reviewed. FINDINGS: The gated Cine loop images demonstrate no focal wall motion abnormality. Left ventricular ejection fr action is calculated at 54%. The cardiac SPECT stress and rest images demonstrate no fixed or reversible defects to suggest infarc t or ischemia. CONCLUSION: No evidence of infarct, ischemia, or focal wall motion abnormality. RISK CATEGORY: Low risk (less than 1% annual mortality rate). Gregory Bermudez MD on June 25, 2016 at 15:28 Board Certified Radiologist. This report was verified electronically.
[2016-06-25] MEDS ORDERED: WARFARIN SOD 7.5 MG TAB PO ONE (16:00)
--- NOTE | 2016-06-25 16:01 | EKG ---
Date Performed: 06/25/2016 Time Performed: 09:21:53 PTAGE: 56 years EKG: SINUS BRADYCARDIA ST DEVIATION AND MODERATE T-WAVE ABNORMALITY, CONSIDER ANTERIOR ISCHEMIA ABNORMAL ECG PREVIOUS TRACING : 06/25/2016 04.50 Since previous tracing, no significant change noted DOCTOR: Silvestre Montes Interpretating Date/Time 06/25/2016 15:59:13
--- NOTE | 2016-06-25 16:02 | EKG ---
Date Performed: 06/25/2016 Time Performed: 04:50:24 PTAGE: 56 years EKG: Sinus rhythm WITH OCCASIONAL VENTRICULAR PREMATURE COMPLEXES ST DEVIATION AND MODERATE T-WAVE ABNORMALITY, CONSID ER ANTERIOR ISCHEMIA ABNORMAL ECG NO PREVIOUS TRACING DOCTOR: Silvestre Montes Interpretating Date/Time 06/25/2016 16:00:11
--- NOTE | 2016-06-25 16:04 | HHI.DCPOC ---
Discharge Care Plan Diagnosis: (1) Chest pain (2) Bilateral pulmonary embolism (3) Hypertension (4) HIV (human immunodeficiency virus infection) (5) Tobacco abuse Goals to Promote Your Health NEED TO HAVE INR CHECKED IN A COUPLE OF DAYS. * To prevent worsening of your condition and complications * To maintain your health at the optimal level Directions to Meet Your Goals Take your medications as prescribed Follow your dietary instruction Follow activity as directed Keep your appointments as scheduled Take your immunizations and boosters as scheduled If your symptoms worsen call your PCP, if no PCP go to Urgent Care Center or Emergency Room Smoking is Dangerous to Your Health. Avoid second hand smoke Call the 24-hour hour crisis hotline for domestic abuse at Jeff Harper Jun 25, 2016 16:04
--- NOTE | 2016-06-25 16:06 | TR ---
Date Performed: 06/25/2016 Time Performed: 13:58:56 DOCTOR: Silvestre Montes DRUG LIST: CLINICAL HISTORY: CHEST PAIN REASON FOR TEST: CHEST PAIN REASON FOR ENDING: OBSERVATION: CONCLUSION: Lexiscan stress test was performed under standard four minute protocol. Radionuclid e was injected one minute prior to ending the test. No electrocardiographic abormalities were present to suggest ischemia. Nuclear imaging and interpretation are pending. COMMENTS:
[2016-06-25] MEDS ORDERED: ATORVASTATIN 40 MG TAB PO SCH (21:00)
--- NOTE | 2016-06-26 11:36 | EKG ---
Date Performed: 06/25/2016 Time Performed: 12:24:07 PTAGE: 56 years EKG: SINUS BRADYCARDIA WITH OCCASIONAL VENTRICULAR PREMATURE COMPLEXES WITH OCCASIONAL SUPRAVENT RICULAR PREMATURE COMPLEXES MODERATE T-WAVE ABNORMALITY, CONSIDER ANTERIOR ISCHEMIA ABNORMAL ECG PREVIOUS TRACING : 06/25/2016 09.21 Since previous tracing, no significant change noted DOCTOR: Joe Banks Interpretating Date/Time 06/26/2016 11:34:56
== END 2016-06-25 20:20 | disposition home or self-care (01) ==
LOC: NEPC 04:20 → NEDA 07:41 → NEPGCP 15:12
PROVIDERS: ADMIT Internal Medicine Cardiovascular Disease; ATTEND Internal Medicine Cardiovascular Disease
DX: R07.89 Other chest pain (principal); I26.99 Other pulmonary embolism without acute cor pulmonale; I10 Essential (primary) hypertension; R94.31 Abnormal electrocardiogram [ECG] [EKG]; E78.5 Hyperlipidemia, unspecified; R00.1 Bradycardia, unspecified; F12.90 Cannabis use, unspecified, uncomplicated; F17.210 Nicotine dependence, cigarettes, uncomplicated; B20 Human immunodeficiency virus [HIV] disease; Z79.01 Long term (current) use of anticoagulants
CPT/HCPCS: 71010; 71275; 78452; 80048; 82550; 82552; 83735; 84484; 85025; 85610; 85730; 93005; 93017; 96361; 96374; 99285; A9502; G0378; J2270; J2785; J7040; Q9967

== ENCOUNTER 2016-12-15 23:53 | Emergency (ER) | payer OTHER ==
[~2016-12-15 23:53] MED LIST changes: -HYDR-3580 PO
[2016-12-15 23:55] VITALS: BP 181/106; PULSE 97; RESP 16; TEMP 97.8; O2SAT 98
== END 2016-12-16 01:49 | disposition left against medical advice (07) ==
LOC: NED 23:53
DX: K08.89 Other specified disorders of teeth and supporting structures (principal); Z53.21 Procedure and treatment not carried out due to patient leaving prior to being seen by health care provider
CPT/HCPCS: 99281

== ENCOUNTER 2017-01-31 10:21 | Emergency (ER) | payer OTHER ==
[~2017-01-31] VITALS: Ht 188 cm; Wt 115.0 kg
[2017-01-31 10:24] VITALS: BP 150/71; TEMP 98.4; O2SAT 98
[2017-01-31 11:02] LABS: BLOOD, URINE MOD (NEG); COMMENT (UR) CULT NOT INDICATED; CULTURE IF INDICATED CULT NOT INDICATED; GLUCOSE,URINE NEG (NEG); KETONE, URINE TRACE mg/dL (NEG); MUCUS URINE MOD /lpf (OCC); NITRITE,URINE NEG (NEG); SQUAMOUS EPITHELIAL CELL URINE <1 /hpf (0-5); URINE COLOR YELLOW (YELLW/STRAW)
[2017-01-31 11:14] LABS: AUTOMATED NEUTROPHIL # 6.4 TH/MM3 (1.8-7.7); BASOPHIL % 0.5 % (0.0-2.0); EOSINOPHIL % 0.5 % (0.0-4.0); HEMATOCRIT 44.9 % (39.0-51.0); HEMO FLAGS DIFF FINAL; LYMPH % 17.4 % (9.0-44.0); LYMPHOCYTE # 1.6 TH/MM3 (1.0-4.8); MEAN CORPUSCULAR HEMOGLOBIN 35.1 PG (27.0-34.0); MEAN CORPUSCULAR HGB CONC 33.5 % (32.0-36.0); MONO % 11.4 % (0.0-8.0); NEUT % 70.2 % (16.0-70.0); PLATELET COUNT 191 TH/MM3 (150-450); RED BLOOD COUNT 4.28 MIL/MM3 (4.50-5.90); RED CELL DISTRIBUTION WIDTH 14.8 % (11.6-17.2); WHITE BLOOD COUNT 9.1 TH/MM3 (4.0-11.0)
[2017-01-31 11:26] VITALS: BP 163/82; PULSE 52; RESP 18; O2SAT 96
[2017-01-31 11:29] LABS: BICARBONATE 24.5 MEQ/L (21.0-32.0); POTASSIUM 3.6 MEQ/L (3.5-5.1)
--- NOTE | 2017-01-31 11:31 | PD ---
HPI Chief Complaint: Complaint Time Seen by Provider: 11:21 Travel History International Travel<30 days: No Contact w/Intl Traveler<30days: No Traveled to known affect area: No History of Present Illness HPI This patient complains of developing bloody urine yesterday at 8 PM. Duration is 15 hours. Severity of symptoms is moderate. He has no presyncopal symptoms. He is on Coumadin for history of PE. His last INR check was 1.9 but that was a couple weeks ago. He is not having any other bleeding areas. No alleviating factors. PFSH Past Medical History Autoimmune Disease: No Cancer: No Cardiovascular Problems: No Diminished Hearing: No Endocrine: No Genitourinary: No Hypertension: Yes Immune Disorder: Yes (HIV diagnosed in 2001) Musculoskeletal: No Neurologic: No Psychiatric: No Reproductive: No Respiratory: No Past Surgical History Abdominal Surgery: No AICD: No Arteriovenous Shunt: No Cardiac Surgery: No Ear Surgery: No Endocrine Surgery: No Eye Surgery: No Genitourinary Surgery: No Gynecologic Surgery: No Insulin Pump: No Joint Replacement: No Oral Surgery: No Pacemaker: No Thoracic Surgery: Yes (Bilatoral Mastectomy ) Other Surgery: Yes Social History Alcohol Use: Yes Tobacco Use: Yes (2-3 CIGS/DAY) Substance Use: Yes (smokes marijuana) Allergies-Medications (Allergen,Severity, Reaction): Coded Allergies: No Known Allergies (Verified , 12/16/16) Reported Meds & Prescriptions Reported Meds & Active Scripts Active Coumadin (Warfarin) 5 Mg Tab 5 Mg PO DAILY@1600 Ativan (Lorazepam) 0.5 Mg Tab 0.5 Mg PO Q8H PRN Lipitor (Atorvastatin Calcium) 40 Mg Tab 40 Mg PO HS Reported Diclofenac Topical 1% Gel 2 Gm TOPICAL BID PRN Centrum Silver Ultra Mens (Multiple Vitamins W/ Minerals) 1 Tab Tab 1 Tab PO DAILY Clotrimazole Anti-Fungal Topical (Clotrimazole) 1% Cream 1 Applic TOPICAL BID PRN Bisacodyl EC (Bisacodyl) 5 Mg Tabec 5 Mg PO HS PRN Allopurinol 100 Mg Tab 100 Mg PO BID Triumeq (Nhuvgdcq-Bwnmmxueonby-Uosykgyhcx) 600-50-300 Mg Tab 1 Tab PO DAILY Hazardous agent; use appropriate precautions for handling & disposal. Turmeric (Turmeric (Curcuma Longa)) 500 Mg Cap Unknown Dose PO DAILY Vitamin D (Cholecalciferol) 1,000 Unit Tab 1,000 Units PO DAILY Review of Systems General / Constitutional: No: Fever Eyes: No: Visual changes HENT: No: Headaches Cardiovascular: No: Chest Pain or Discomfort Respiratory: No: Shortness of Breath Gastrointestinal: No: Abdominal Pain Genitourinary: Positive: Hematuria, No: Dysuria Musculoskeletal: No: Pain Skin: No Rash Neurologic: No: Weakness Psychiatric: No: Depression Endocrine: No: Polydipsia Hematologic/Lymphatic: No: Easy Bruising Physical Exam Narrative GENERAL: Well-nourished, well-developed patient in no apparent distress. SKIN: Focused skin assessment reveals no rash and nodules. Skin is Warm and dry. HEAD: Atraumatic. Normocephalic. EYES: Pupils equal and round. No scleral icterus. No injection or drainage. ENT: No nasal bleeding or discharge. Mucous membranes pink and moist. NECK: Trachea midline. No JVD. CARDIOVASCULAR: Regular rate and rhythm. No murmur appreciated. RESPIRATORY: No accessory muscle use. Clear to auscultation. Breath sounds equal bilaterally. GASTROINTESTINAL: Abdomen soft, non-tender, nondistended. Hepatic and splenic margins not palpable. MUSCULOSKELETAL: No obvious deformities. No clubbing. No cyanosis. No edema. NEUROLOGICAL: Awake and alert. No obvious cranial nerve deficits. Motor grossly within normal limits. Normal speech. PSYCHIATRIC: Appropriate mood and affect; insight and judgment normal. : No active penile bleeding or lesions Data Data Last Documented VS Vital Signs Date Time Temp Pulse Resp B/P (MAP) Pulse Ox O2 Delivery O2 Flow Rate FiO2 01/31/17 11:26 52 18 163/82 (109) 96 Room Air 01/31/17 10:24 98.4 Orders Orders Complete Blood Count With Diff (01/31/17 10:28) Basic Metabolic Panel (Bmp) (01/31/17 10:28) Urinalysis - C+S If Indicated (01/31/17 10:28) Prothrombin Time / Inr (Pt) (01/31/17 11:28) Labs Laboratory Tests Test 01/31/17 10:46 01/31/17 10:52 01/31/17 11:30 Urine Color YELLOW Urine Turbidity CLEAR Urine pH 6.0 Urine Specific [place] 1.026 Urine Protein 30 mg/dL Urine Glucose (UA) NEG mg/dL Urine Ketones TRACE mg/dL Urine Occult Blood MOD Urine Nitrite NEG Urine Bilirubin NEG Urine Urobilinogen 2.0 MG/DL Urine Leukocyte Esterase NEG Urine RBC 75 /hpf Urine WBC 1 /hpf Urine Squamous Epithelial Cells <1 /hpf Urine Mucus MOD /lpf Microscopic Urinalysis Comment CULT NOT INDICATED White Blood Count 9.1 TH/MM3 Red Blood Count 4.28 MIL/MM3 Hemoglobin 15.0 GM/DL Hematocrit 44.9 % Mean Corpuscular Volume 105.0 FL Mean Corpuscular Hemoglobin 35.1 PG Mean Corpuscular Hemoglobin Concent 33.5 % Red Cell Distribution Width 14.8 % Platelet Count 191 TH/MM3 Mean Platelet Volume 7.7 FL Neutrophils (%) (Auto) 70.2 % Lymphocytes (%) (Auto) 17.4 % Monocytes (%) (Auto) 11.4 % Eosinophils (%) (Auto) 0.5 % Basophils (%) (Auto) 0.5 % Neutrophils # (Auto) 6.4 TH/MM3 Lymphocytes # (Auto) 1.6 TH/MM3 Monocytes # (Auto) 1.0 TH/MM3 Eosinophils # (Auto) 0.0 TH/MM3 Basophils # (Auto) 0.0 TH/MM3 CBC Comment DIFF FINAL Differential Comment Blood Urea Nitrogen 11 MG/DL Creatinine 1.11 MG/DL Random Glucose 133 MG/DL Calcium Level 8.8 MG/DL Sodium Level 139 MEQ/L Potassium Level 3.6 MEQ/L Chloride Level 108 MEQ/L Carbon Dioxide Level 24.5 MEQ/L Anion Gap 7 MEQ/L Estimat Glomerular Filtration Rate 82 ML/MIN Prothrombin Time 38.6 SEC Prothromb Time International Ratio 3.3 RATIO [facility] Medical Decision Making Medical Screen Exam Complete: Yes Emergency Medical Condition: Yes Medical Record Reviewed: Yes Differential Diagnosis Supratherapeutic INR, anemia, UTI Narrative Course I have reviewed the patient's electronic medical record. Reviewed his H&P from June 2016 when he is admitted for chest pain IV placed CBC is normal with normal hemoglobin Metabolic profile is normal INR on Coumadin is 3.3 Urinalysis shows no infection but 75 red cells Recommend he hold his Coumadin today and tomorrow and restart at 5 mg daily as opposed to 5 alternating with 7.5 He should discuss with his primary physician and obtain repeat INR next week as well as discussed urology follow-up. Diagnosis Primary Impression: Hematuria Qualified Codes: R31.9 - Hematuria, unspecified Additional Impression: Supratherapeutic INR Additional Instructions: Hold Coumadin today and tomorrow Restart Thursday at 5 mg daily Discuss with your primary physician and obtain repeat INR Discuss urology follow-up Med/Other Pt SpecificInfo: Other Disposition: 01 DISCHARGE HOME Condition: Stable Mayito Locke MD Jan 31, 2017 11:31
[2017-01-31 11:52] LABS: INTERNATIONAL NORMALIZED RATIO 3.3 RATIO; PROTHROMBIN TIME - PATIENT 38.6 SEC (9.8-11.6)
== END 2017-01-31 13:36 | disposition home or self-care (01) ==
LOC: NEPD 10:21
DX: R31.9 Hematuria, unspecified (principal); R79.1 Abnormal coagulation profile; I10 Essential (primary) hypertension; Z72.0 Tobacco use; Z21 Asymptomatic human immunodeficiency virus [HIV] infection status; Z79.01 Long term (current) use of anticoagulants; Z86.711 Personal history of pulmonary embolism
CPT/HCPCS: 80048; 81001; 85025; 85610; 99283

== ENCOUNTER 2017-04-09 08:20 | Emergency (ER) | payer MEDICARE, OTHER ==
[~2017-04-09] VITALS: Ht 188 cm; Wt 120.0 kg
[2017-04-09 08:22] VITALS: BP 164/94; PULSE 74; RESP 15; TEMP 97.3; O2SAT 97
--- NOTE | 2017-04-09 08:39 | PD ---
HPI Chief Complaint: Injury Time Seen by Provider: 08:31 Travel History International Travel<30 days: No Contact w/Intl Traveler<30days: No Traveled to known affect area: No History of Present Illness HPI 56-year-old male presents emergency primary complaining of left shoulder pain for approximately 1 week after lifting a garbage bag off the floor. States that his pain has worsened over the last week and decided to come to the emergency department. States his pain is located mainly in the left shoulder region and posterior shoulder region without radiation. States his pain is aching constant and occasionally stabbing. Nothing makes it better. Movement makes it worse and it is moderate. Patient denies any previous history of shoulder injury or pain. Patient has had a "mini heart attack" and pulmonary embolism and his previous medical history. Patient has not taken any medication for this at this time. PFSH Past Medical History Hx Anticoagulant Therapy: Yes Autoimmune Disease: No Cancer: No Cardiovascular Problems: No Diminished Hearing: No Endocrine: No Genitourinary: No Hypertension: Yes Immune Disorder: Yes (HIV diagnosed in 2001) Musculoskeletal: No Neurologic: No Psychiatric: No Reproductive: No Respiratory: No Past Surgical History Abdominal Surgery: No AICD: No Arteriovenous Shunt: No Cardiac Surgery: No Ear Surgery: No Endocrine Surgery: No Eye Surgery: No Genitourinary Surgery: No Gynecologic Surgery: No Insulin Pump: No Joint Replacement: No Oral Surgery: No Pacemaker: No Thoracic Surgery: Yes (Bilatoral Mastectomy ) Other Surgery: Yes Social History Alcohol Use: Yes (occ) Tobacco Use: Yes (2-3 CIGS/DAY) Substance Use: No Allergies-Medications (Allergen,Severity, Reaction): Coded Allergies: No Known Allergies (Verified Adverse Reaction, Unknown, 04/09/17) Reported Meds & Prescriptions Reported Meds & Active Scripts Active Robaxin (Methocarbamol) 500 Mg Tab 500 Mg PO TID 5 Days Coumadin (Warfarin) 5 Mg Tab 5 Mg PO DAILY@1600 Ativan (Lorazepam) 0.5 Mg Tab 0.5 Mg PO Q8H PRN Lipitor (Atorvastatin Calcium) 40 Mg Tab 40 Mg PO HS Reported Diclofenac Topical 1% Gel 2 Gm TOPICAL BID PRN Centrum Silver Ultra Mens (Multiple Vitamins W/ Minerals) 1 Tab Tab 1 Tab PO DAILY Clotrimazole Anti-Fungal Topical (Clotrimazole) 1% Cream 1 Applic TOPICAL BID PRN Bisacodyl EC (Bisacodyl) 5 Mg Tabec 5 Mg PO HS PRN Allopurinol 100 Mg Tab 100 Mg PO BID Triumeq (Xcgkhodx-Adqpbvzhwfjf-Exmiglemey) 600-50-300 Mg Tab 1 Tab PO DAILY Hazardous agent; use appropriate precautions for handling & disposal. Turmeric (Turmeric (Curcuma Longa)) 500 Mg Cap Unknown Dose PO DAILY Vitamin D3 (Cholecalciferol) 1,000 Unit Tab 1,000 Units PO DAILY Review of Systems Except as stated in HPI: all other systems reviewed are Neg Physical Exam Narrative GENERAL: Well-nourished, well-developed patient. SKIN: Focused skin assessment warm/dry. HEAD: Normocephalic. EYES: No scleral icterus. No injection or drainage. NECK: Supple, trachea midline. No JVD or lymphadenopathy. CARDIOVASCULAR: Regular rate and rhythm without murmurs, gallops, or rubs. RESPIRATORY: Breath sounds equal bilaterally. No accessory muscle use. MUSCULOSKELETAL: No cyanosis, or edema. Patient refuses to move her shoulder. TTP over superior trapezius and surrounding shoulder joint. No pain over deltoid or tendons. BACK: Nontender without obvious deformity. No CVA tenderness. Data Data Last Documented VS Vital Signs Date Time Temp Pulse Resp B/P (MAP) Pulse Ox O2 Delivery O2 Flow Rate FiO2 04/09/17 08:22 97.3 74 15 164/94 (117) 97 Room Air Orders Orders Methylprednisolone So Succ Inj (Solumedr (04/09/17 08:45) Orphenadrine Inj (Norflex Inj) (04/09/17 08:45) Splint Or Brace Apply/Monitor (04/09/17 08:43) Ed Discharge Order (04/09/17 08:55) [facility] Medical Decision Making Medical Screen Exam Complete: Yes Emergency Medical Condition: Yes Differential Diagnosis Left shoulder tendinitis versus contusion versus sprain Narrative Course 56-year-old male presents emergency primary complaining of left shoulder pain for approximately 1 week after lifting a garbage bag off the floor. States that his pain has worsened over the last week and decided to come to the emergency department. States his pain is located mainly in the left shoulder region and posterior shoulder region without radiation. States his pain is aching constant and occasionally stabbing. Nothing makes it better. Movement makes it worse and it is moderate. Patient denies any previous history of shoulder injury or pain. Patient has had a "mini heart attack" and pulmonary embolism and his previous medical history. Patient has not taken any medication for this at this time. Vital signs stable Physical exam consistent with rotator cuff injury. Patient would not allow me to move the shoulder at all. Neurovascularly intact otherwise. Advised patient that my physical exam findings were limited secondary to patient 's inability to move arm. Advised that he likely had a tendinitis or tendon involvement and to follow up with primary care physician or orthopedics for further evaluation. Patient will be prescribed muscle relaxer for spasms in the upper shoulder region. Splint provided for comfort however, advised that he should not keep the shoulder stationary at this can cause a frozen shoulder. Diagnosis Primary Impression: Left shoulder tendinitis Additional Impression: Muscle spasm Referrals: Orthopedist Primary Care Physician Additional Instructions: Follow-up with her primary care physician within 2-3 days. Follow-up with orthopedics for continuation of care. Take medication as prescribed and use caution with muscle relaxers and can make you feel drowsy. Use the splint as little as possible as you may develop frozen shoulder if you do not move it. Scripts Methocarbamol (Robaxin) 500 Mg Tab 500 MG PO TID for Muscle Spasm for 5 Days, TAB 0 Refills Prov: Norma Goins MD 04/09/17 Disposition: 01 DISCHARGE HOME Condition: Stable Mila Humphrey Apr 09, 2017 08:39
[2017-04-09] MEDS ORDERED: ORPHENADRINE INJ 60 MG/2 ML AMP IM ONE (08:45)
[2017-04-09] MEDS ORDERED: methylPREDNISolone SOD SUCC 125 MG/2 ML VIAL IM ONE (08:45)
[2017-04-09] MEDS ORDERED: ROBA500T PO (08:54)
== END 2017-04-09 09:25 | disposition home or self-care (01) ==
LOC: NEPD 08:20
DX: M75.92 Shoulder lesion, unspecified, left shoulder (principal); M62.838 Other muscle spasm; I10 Essential (primary) hypertension; F17.210 Nicotine dependence, cigarettes, uncomplicated; Z79.01 Long term (current) use of anticoagulants; Z21 Asymptomatic human immunodeficiency virus [HIV] infection status; Z79.899 Other long term (current) drug therapy; Z86.711 Personal history of pulmonary embolism
CPT/HCPCS: 96372; 99283; J2360; J2930